=== PATIENT | male | born 1955 | race African-American/Black ===

== ENCOUNTER → 2017-09-25 | Outpatient (CLI) | payer BC ==
[~2017-09-25] MED LIST: CATHETER FLUSH 10 ML SYR IV PRN; REGADENOSON 0.4 MG/5 ML SYR (LEXISCAN) IV ONE
[2017-09-25 09:15] VITALS: BP 160/95
[2017-09-25 09:19] VITALS: BP 137/75
[2017-09-25 09:22] VITALS: BP 164/79
== END ==
LOC: CARD 07:50
PROVIDERS: ATTEND Internal Medicine Cardiovascular Disease
DX: I48.0 Paroxysmal atrial fibrillation (principal); I49.5 Sick sinus syndrome; I70.213 Atherosclerosis of native arteries of extremities with intermittent claudication, bilateral legs
CPT/HCPCS: 78452; 93017

== ENCOUNTER → 2017-10-12 | Outpatient (CLI) | payer BC | LOC: CARD 10:17 → EDUNIT# 11:30 | PROVIDERS: ATTEND Internal Medicine Cardiovascular Disease | DX: I48.0 Paroxysmal atrial fibrillation (principal); I49.5 Sick sinus syndrome; I70.213 Atherosclerosis of native arteries of extremities with intermittent claudication, bilateral legs | CPT/HCPCS: 93306 ==

== ENCOUNTER 2017-11-06 06:53 | Day surgery (SDC) | payer BC ==
[~2017-11-06] VITALS: Ht 190.5 cm; Wt 105.2 kg
[2017-11-06] VITALS (10 sets, daily range): BP systolic 145–173; BP diastolic 69–94
[2017-11-06] MEDS ORDERED: NS IV 1000 ML 1,000 ML ONE (06:57)
[2017-11-06] MEDS ORDERED: HEParin (CATH LAB) 2,000 ML IV ONE (06:57)
[2017-11-06] MEDS ORDERED: LIDOCAINE 1% INJ 50 ML (XYLOCAINE) VIAL ONE (06:57)
[2017-11-06 07:19] LABS: HEMOGLOBIN 13.5 G/DL (13.3-17.7); MEAN PLATELET VOLUME 10.1 FL (7.4-10.4); RED BLOOD COUNT 4.77 10^6/uL (4.35-5.85); RED CELL DISTRIBUTION WIDTH 14.5 % (10.0-14.5); WHITE BLOOD COUNT 6.9 10^3/uL (4.3-11.0)
[2017-11-06] MEDS ORDERED: CARV6.252 PO (07:26)
[2017-11-06] MEDS ORDERED: APIX5TAB PO (07:26)
[2017-11-06] MEDS ORDERED: CLOP75TA69 PO (07:26)
[2017-11-06] MEDS ORDERED: LEVO175T5 PO (07:26)
[2017-11-06 07:29] LABS: PROTHROMBIN TIME PATIENT 13.2 SEC (12.2-14.7)
[2017-11-06] MEDS ORDERED: NS IV 1000 ML 1,000 ML IV SCH ×2 (07:30→08:48)
[2017-11-06 07:40] LABS: ALANINE AMINOTRANSFERASE 17 U/L (0-55); ALKALINE PHOSPHATASE 57 U/L (40-136); BILIRUBIN,TOTAL 0.3 MG/DL (0.1-1.0); BUN/CREATININE RATIO 20; CALCIUM 9.3 MG/DL (8.5-10.1); CARBON DIOXIDE 23 MMOL/L (21-32); CHLORIDE 108 MMOL/L (98-107); CHOLESTEROL 189 MG/DL (< 200); CREATININE SERUM 1.25 MG/DL (0.60-1.30); GFR ESTIMATED > 60; GLUCOSE 111 MG/DL (70-105); HDL CHOLESTEROL 56 MG/DL (40-60); POTASSIUM 4.6 MMOL/L (3.6-5.0); SODIUM 142 MMOL/L (135-145); TOTAL PROTEIN 7.1 GM/DL (6.4-8.2); TRIGLYCERIDES 66 MG/DL (<150); VLDL CHOLESTEROL 13 MG/DL (5-40)
[2017-11-06] MEDS ORDERED: diphenhydrAMINE 50 MG/ML INJ (BENADRYL) ONE (07:45)
[2017-11-06] MEDS ORDERED: MIDAZOLAM 5 MG/5 ML (VERSED) VIAL ONE (07:45)
[2017-11-06] MEDS ORDERED: fentaNYL INJECTION 100 MCG/2 ML AMP ONE (07:45)
--- NOTE | 2017-11-06 08:48 | Cardiac Procedure Note-CS/ASA ---
Pre-Procedure Note Pre-Op Procedure Note H&P Reviewed The H&P was reviewed, patient examined and no changes noted. Date H&P Reviewed: Nov 06, 2017 Time H&P Reviewed: 08:20 Conscious Sedation Pre-Proced Time Reviewed: 08:20 ASA Class: 2 Airway Mallampati Classification: ([place] appropriate class) I. II. III, IV Lungs Heart ASA score ASA 1: a normal healthy patient ASA 2: a patient with a mild systemic disease (mid diabetes, controlled hypertension, obesity ASA 3: a patient with a severe systemic disease that limits activity (angina , COPD, prior Myocardial infarction) ASA 4: a patient with an incapacitating disease that is a constant threat to life (CHF, renal failure) ASA 5: a moribund patient not expected to survive 24 hrs. (ruptured aneurysm) ASA 6: a declared brain patient whose organs are being harvested. For emergent operations, add the letter E after the classification Grade 2 Sedation Plan: Analgesia, Amnesia, Plan communicated to team members, Discussed options with patient/fam, Discussed risks with patient/fam Note The patient is an appropriate candidate to undergo the planned procedure, sedation, and anesthesia. The patient immediately re-assessed prior to indication. YULIYA CAMACHO MD FACP FACC CCDS Nov 06, 2017 08:48
[2017-11-06] MEDS ORDERED: ATOR20TA66 PO (08:52)
--- NOTE | 2017-11-06 08:53 | Discharge Inst-Post CATH ---
Discharge Inst-CATH Post Cardiac Cath D/C Inst Follow Up/Plan F/u with Dr Brooks next week CARDIAC CATH DISCHARGE INSTRUCTIONS *Hold Metformin for 48 hours post heart cath. ACTIVITY * Go Home directly and rest. * Limit activity of the leg (or wrist if it was used) for 7 days including aerobics, swimming, jogging, bicycling, etc. * Restrict stair-climbing for 7 days if possible, if not, climb up with your non -cath leg, then bring together on the same step. * Avoid lifting, pushing, pulling or excessive movement of the affected extremity for 7 days. * Customary sexual activity may be resumed after 2 days-use caution not to use a position that strains or causes pain to the affected extremity. * No driving for 24 hours. * NO SMOKING. * Avoid straining for bowel movements for 7 days. * Gentle walking on level ground is allowed. * Returning to work will depend on the type of procedure and the results. Your doctor will discuss this with you. CALL YOUR DOCTOR FOR ANY OF THE FOLLOWING: *If bleeding from the puncture site occurs- Apply gentle pressure to site with clean cloth and call your doctor or EMS. * If a knot or lump forms under the skin, increases in size, or causes pain. * If bruising appears to be worsening or moving further down your leg instead of disappearing. * Temperature above 101 F. CARE OF YOUR GROIN INCISION; * Bruising or purple discoloration of the skin near the puncture site is common. * You may shower only, no bathtub bathing for 5 days. Be careful to avoid slipping as your leg may feel stiff. * If a closure device was used on your femoral artery, please see the attached guide regarding care of the device and your leg. * REMOVE the dressing from your groin the next day after your procedure in the shower. CARE OF YOUR WRIST INCISION; * Bruising or purple discoloration of the skin near the puncture site is common. * You may shower. * DO NOT submerge wrist. * Remove dressing in 24 hours. YULIYA BROOKS MD FACP FAC CCDS Nov 06, 2017 08:53
--- NOTE | 2017-11-06 08:54 | Discharge Inst-Cardiology ---
Discharge Inst-Cardiac Discharge Medications New Medications: Atorvastatin Calcium (Atorvastatin Calcium) 20 Mg Tablet 20 MG PO DAILY, #30 TAB 5 Refills Continued Medications: Apixaban (Eliquis) 5 Mg Tablet 5 MG PO BID, TAB Carvedilol (Carvedilol) 6.25 Mg Tablet 6.25 MG PO BID, TAB Clopidogrel Bisulfate (Plavix) 75 Mg Tablet 75 MG PO DAILY, TAB Levothyroxine Sodium (Levothyroxine Sodium) 175 Mcg Tablet 175 MCG PO DAILY, TAB Orders-Post D/C & Referrals Pneu Vac Indicated: Yes YULIYA CAMACHO MD FACP FACC CCDS Nov 06, 2017 08:53
[2017-11-06] MEDS ORDERED: PATIENT MAY USE OWN MEDS, ALL PO SCH (09:00)
--- NOTE | 2017-11-06 11:32 | CARDIAC CATHETERIZATION ---
DATE OF SERVICE: 11/06/2017 HISTORY OF PRESENT ILLNESS: The patient is a 62-year-old man who has known peripheral arterial disease and multiple coronary artery disease risk factors and had a recent myocardial perfusion imaging study, which was indicative of ischemia. Cardiac catheterization was carried out today after having obtained an informed consent. PROCEDURE DESCRIPTION: He was brought to the cardiac catheterization laboratory in a fasting state. Right groin was prepared and draped in the usual sterile fashion. Lidocaine 1% was used for local anesthesia. Modified Seldinger technique was used to advance a 5-Dominican sheath into the right femoral artery. A 5-Dominican JL4 catheter for left coronary angiography, 5-Dominican JR4 catheter was used for right coronary angiography. A 5-Dominican pigtail catheter used for left heart catheterization and left ventricular angiography. We noted calcification in the aortic arch and in the neck artery area. Therefore, we carried out aortic arch angiography. The pigtail was placed at the aortic arch and aortic arch angiography was performed. Pigtail was removed. Angiography of the right femoral artery had been carried out through the sheath at the beginning of the procedure. At the end of the procedure, Mynx was used to achieve hemostasis. He tolerated the procedure well. HEMODYNAMICS: Left ventricular end-diastolic pressure following coronary angiography was 6 mmHg. There was no significant pressure gradient on pullback across the aortic valve. Ascending aortic pressure is 123/60 with a mean of 84 mmHg. LEFT VENTRICULAR ANGIOGRAPHY: Left ventricular angiography was carried out in right anterior oblique projection. Global left ventricular systolic function is normal. No regional wall motion abnormalities are seen. Left ventricular ejection fraction is estimated to be 55% to 60%. There does not appear to be significant mitral regurgitation. AORTIC ARCH ANGIOGRAPHY: Aortic arch angiography was performed because calcification was noted on fluoroscopy in the aortic arch and the neck arteries. Aortic arch angiography did not indicate any significant thoracic aortic aneurysm or dissection. Only a single common brachiocephalic function is identified, which seems to branch into right and left brachiocephalic trunks. Mild calcification is seen of the aortic arch and of the proximal portion of the brachiocephalic trunk. No stenoses identified to the extent seen. CORONARY ANGIOGRAPHY: Mild coronary calcification is present. Left main coronary artery does not exhibit significant disease. Left anterior descending artery has mild diffuse plaques. Left circumflex artery has mild diffuse plaques. Right coronary artery is dominant and has approximately 40% stenosis in its mid portion. CONCLUSIONS: 1. Angiographically mild coronary artery disease. 2. Normal global left ventricular systolic function with an ejection fraction of 55% to 60%. 3. Normal left ventricular end-diastolic pressure. 4. Mild calcification of the aortic arch. 5. No significant mitral regurgitation. DISCUSSION AND RECOMMENDATIONS: Based on results of the study, it appears appropriate to continue a conservative approach. Risk factor modification was reviewed. Statin has been added to the regimen. Outpatient followup is advised. Job ID: [id number] DocumentID: [id number] Dictated Date: 11/06/2017 09:05:16 Electrical Automation Engineer Date: 11/06/2017 11:31:13 Dictated By: YULIYA CAMACHO MD, MA, FACP, FACC, MTDD
== END 2017-11-06 11:56 | disposition home or self-care (01) ==
LOC: CATH 06:53 → SURG 09:02 → CATH 11:56
PROVIDERS: ATTEND Internal Medicine Cardiovascular Disease
DX: I25.10 Atherosclerotic heart disease of native coronary artery without angina pectoris (principal); I48.0 Paroxysmal atrial fibrillation; I49.5 Sick sinus syndrome; I73.9 Peripheral vascular disease, unspecified; Z82.49 Family history of ischemic heart disease and other diseases of the circulatory system; Z79.01 Long term (current) use of anticoagulants; Z79.02 Long term (current) use of antithrombotics/antiplatelets; Z79.899 Other long term (current) drug therapy; Z87.891 Personal history of nicotine dependence
CPT/HCPCS: 36221; 36415; 80053; 80061; 85027; 85610; 85730; 87081; 93005; 93458

== ENCOUNTER → 2018-05-09 | Outpatient (CLI) | payer BC ==
[~2018-05-09] MED LIST changes: +APIX5TAB PO; +ATOR20TA66 PO; +CARV6.252 PO; -CATHETER FLUSH 10 ML SYR IV PRN; +CLOP75TA69 PO; +IOHEXOL 350 MG/ML 100 ML (OMNIPAQUE 350) VIAL IV ONE; +LEVO175T5 PO; +NS 250 ML (IVPB) BAG IV ONE; -REGADENOSON 0.4 MG/5 ML SYR (LEXISCAN) IV ONE
[2018-05-09 09:12] LABS: ALANINE AMINOTRANSFERASE 21 U/L (0-55); ALBUMIN 4.1 GM/DL (3.2-4.5); ALKALINE PHOSPHATASE 63 U/L (40-136); BILIRUBIN,TOTAL 0.4 MG/DL (0.1-1.0); BUN/CREATININE RATIO 21; CALCIUM 9.7 MG/DL (8.5-10.1); CARBON DIOXIDE 27 MMOL/L (21-32); CHLORIDE 111 MMOL/L (98-107); CHOLESTEROL 135 MG/DL (< 200); CREATININE SERUM 1.04 MG/DL (0.60-1.30); GFR ESTIMATED > 60; GLUCOSE 116 MG/DL (70-105); HDL CHOLESTEROL 49 MG/DL (40-60); POTASSIUM 4.9 MMOL/L (3.6-5.0); SODIUM 143 MMOL/L (135-145); TOTAL PROTEIN 7.2 GM/DL (6.4-8.2); TRIGLYCERIDES 61 MG/DL (<150); VLDL CHOLESTEROL 12 MG/DL (5-40)
--- NOTE | 2018-05-09 13:25 | Diagnostic Imaging Report ---
INDICATION: Atherosclerotic disease. Post IV contrast-enhanced CT angio neck performed. FINDINGS: There is very poor intraluminal arterial opacification of the bilateral internal carotids through the level of the skull base with vast majority of the contrast being in the systemic venous system within the prominent widely patent jugulars. There is also very poor intraluminal opacification of the vertebral arteries. The aortic arch is widely patent. The left common carotid arises off the brachiocephalic as anatomical variant. The bilateral subclavians appeared unremarkable. The takeoff of both vertebral arteries was patent. The left the dominant vessel, the right somewhat small but appearing nonfocal where it was adequately opacified. From the level of the C2-C3 disc space and up, the vertebrals are poorly opacified and not well characterized. The bilateral common carotid arteries are widely patent. There is at least calcified plaque at the carotid bulbs and bifurcations extending into the proximal ICAs. This study would not be adequate to exclude a hemodynamically significant degree of stenosis at the proximal ICAs of the disease more pronounced left than right. Intracranially, there is at least some intraluminal opacification at the cavernous segments of the carotids, the A1 segments and the proximal middle cerebral arterial segments. There is some opacification of the intracranial basilar and at least proximal interlocker maintainer. There is enhancement of the major dural venous sinuses with asymmetric right lateral ventriculomegaly of uncertain etiology. 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 Old deformity to the medial right orbital wall. IMPRESSION: Technically limited with poor arterial opacification of the mid to upper neck through the [place]. Left greater than right proximal carotid plaque, a hemodynamically significant degree of stenosis could not be excluded. No obvious vertebral disease; however, there are also poorly opacified at the distal third of the cervical segments. Mild colpocephalic distention of the posterior body, atria and occipital horn of the right lateral ventricle likely chronic. If not already performed, carotid Doppler recommended as the severity of disease appeared most pronounced near the bifurcations which should be in the [id number] at Doppler evaluation. Dictated by: Dictated on workstation # [id number]
== END ==
LOC: RAD 08:16
PROVIDERS: ATTEND Nurse Practitioner Family
DX: I65.23 Occlusion and stenosis of bilateral carotid arteries (principal); I25.10 Atherosclerotic heart disease of native coronary artery without angina pectoris; I70.213 Atherosclerosis of native arteries of extremities with intermittent claudication, bilateral legs; I48.0 Paroxysmal atrial fibrillation; I49.5 Sick sinus syndrome
CPT/HCPCS: 36415; 70498; 80053; 80061

== ENCOUNTER → 2019-11-20 | Outpatient (CLI) | payer MEDICARE ==
[~2019-11-20] MED LIST changes: -IOHEXOL 350 MG/ML 100 ML (OMNIPAQUE 350) VIAL IV ONE; -NS 250 ML (IVPB) BAG IV ONE
== END ==
LOC: CARD 08:47
PROVIDERS: ATTEND Internal Medicine Cardiovascular Disease
DX: I48.0 Paroxysmal atrial fibrillation (principal); I49.5 Sick sinus syndrome; I51.7 Cardiomegaly; I70.213 Atherosclerosis of native arteries of extremities with intermittent claudication, bilateral legs
CPT/HCPCS: 93306

== ENCOUNTER → 2019-12-02 | Outpatient (CLI) | payer MEDICARE ==
[~2019-12-02] VITALS: Ht 187 cm; Wt 116.0 kg
[~2019-12-02] MED LIST changes: +CATHETER FLUSH 10 ML SYR IV PRN; +REGADENOSON 0.4 MG/5 ML SYR (LEXISCAN) IV ONE
[2019-12-02 08:52] VITALS: BP 174/74
[2019-12-02 09:05] VITALS: BP 161/85
--- NOTE | 2019-12-05 15:28 | STRESS TEST ---
DATE OF SERVICE: 12/02/2019 ORDERING PHYSICIAN: Dr. Brooks. PRIMARY PHYSICIAN: Dr. Martinez. CLINICAL DIAGNOSES: Shortness of breath, paroxysmal atrial fibrillation. Baseline images were carried out after injection of 10.58 mCi of technetium-99m Tetrofosmin. This was followed by 0.4 mg regadenoson and 31 mCi of technetium-99m Tetrofosmin for stress imaging. The electrocardiogram showed sinus rhythm at baseline. It did not change significantly with regadenoson infusion. Isolated premature ventricular contractions were seen in the recovery phase. The patient did not report any symptoms. Review of images at rest and following stress indicates a small inferolateral transient perfusion defect. Gated images show normal regional wall motion. Left ventricular ejection fraction is calculated to be 53%. TID is absent (0.95). CONCLUSIONS: 1. The study is indicative of a small amount of inferolateral ischemia. 2. Normal regional wall motion. 3. Normal global left ventricular systolic function with a calculated ejection fraction of 53%. Job ID: [id number] DocumentID: [id number] Dictated Date: 12/05/2019 10:57:13 Advertising Inserter Date: 12/05/2019 14:18:35 Dictated By: YULIYA BROOKS MD, MA, FACP, FACC,
== END ==
LOC: CARD 07:06
PROVIDERS: ATTEND Internal Medicine Cardiovascular Disease
DX: I48.0 Paroxysmal atrial fibrillation (principal); I70.213 Atherosclerosis of native arteries of extremities with intermittent claudication, bilateral legs; I49.5 Sick sinus syndrome
CPT/HCPCS: 78452; 93017

== ENCOUNTER 2020-01-01 19:18 | Outpatient (CLI) | payer MEDICARE ==
[~2020-01-01 19:18] MED LIST changes: -CATHETER FLUSH 10 ML SYR IV PRN; -REGADENOSON 0.4 MG/5 ML SYR (LEXISCAN) IV ONE
== END 2020-01-02 06:00 | disposition home or self-care (01) ==
LOC: SLEEP 19:18
PROVIDERS: ATTEND Otolaryngology Otolaryngology/Facial Plastic Surgery
DX: G47.33 Obstructive sleep apnea (adult) (pediatric) (principal); G47.31 Primary central sleep apnea
CPT/HCPCS: 95811

== ENCOUNTER 2020-03-16 07:10 | Day surgery (SDC) | payer MEDICARE ==
[~2020-03-16 07:10] MED LIST changes: +HEParin (CATH LAB) 0 ML IV ONE; +LIDOCAINE 1% INJ 20 ML 20 ML VIAL ONE
[2020-03-16] MEDS ORDERED: NS IV 1000 ML 1,000 ML ONE (07:11)
[2020-03-16] MEDS ORDERED: NS IV 1000 ML 1,000 ML IV SCH (07:15)
--- OUTSIDE RECORDS SUMMARY | 2020-03-16 07:15 | XMS REPORT | Continuity of Care Document ---
Author Organization Unknown Address Unknown Phone Unavailable Allergies Active Description Code Type Severity Reaction Onset Reported/Identified Relationship to Patient Clinical Status Yes No Allergy Information Available [id number] Drug Allergy Unknown N/A 017 Yes No Known Drug Allergies [id number] Drug Allergy Unknown N/A 11/06/2017 Medications There is no data. 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 10/26/2017 JANICE CARBONE FACC, ALI FACP CCDS Ot I48.0 PAROXYSMAL ATRIAL FIBRILLATION 10/26/2017 JANCIE CARBONE FACC, ALI FACP CCDS Ot I49.5 SICK SINUS SYNDROME 10/26/2017 JANICE CARBONE FACC, ALI FACP CCDS Ot 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 11/06/2017 JANICE CARBONE FACC, YULIYA FACP CCDS Ot I25.10 ATHSCL HEART DISEASE OF [place] CORONARY 11/06/2017 JANICE CARBONE FACC, ALI FACP CCDS Ot I48.0 PAROXYSMAL ATRIAL FIBRILLATION 11/06/2017 JANICE CARBONE FACC, ALI FACP CCDS Ot I49.5 SICK SINUS SYNDROME 11/06/2017 JANICE CARBONE FACC, ALI FACP CCDS Ot I73.9 PERIPHERAL VASCULAR DISEASE, UNSPECIFIED 11/06/2017 JANICE BEDOYAC, ALI FACP CCDS Ot Z79.01 AUDIT TECH (CURRENT) USE OF ANTICOAGULANT 11/06/2017 JANICE CARBONE FACC, ALI FACP CCDS Ot Z79.02 AUDIT TECH (CURRENT) USE OF ANTITHROMBOTI 11/06/2017 JANICE CARBONE FACC, ALI FACP CCDS Ot Z79.899 OTHER CARE HOME (CURRENT) DRUG THERAPY 11/06/2017 JANICE BEDOYAC, ALI FACP CCDS Ot Z82.49 FAMILY HX OF ISCHEM HEART DIS AND OTH DI 11/06/2017 JANICE CARBONE FACC, ALI FACP CCDS Ot Z87.891 PERSONAL HISTORY OF NICOTINE DEPENDENCE 11/09/2017 JANICE BEDOYAC, ALI FACP CCDS Ot I25.10 ATHSCL HEART DISEASE OF [place] CORONARY 11/09/2017 JANICE BEDOYAC, ALI FACP CCDS Ot I48.0 PAROXYSMAL ATRIAL FIBRILLATION 11/09/2017 JANICE BEDOYAC, ALI FACP CCDS Ot I49.5 SICK SINUS SYNDROME 11/09/2017 JANICE CARBONE FACC, ALI FACP CCDS Ot I73.9 PERIPHERAL VASCULAR DISEASE, UNSPECIFIED 11/09/2017 JANICE CARBONE FACC, ALI FACP CCDS Ot Z79.01 CARE HOME (CURRENT) USE OF ANTICOAGULANT 11/09/2017 JANICE CARBONE FACC, ALI FACP CCDS Ot Z79.02 CARE HOME (CURRENT) USE OF ANTITHROMBOTI 11/09/2017 JANICE BEDOYAC, ALI FACP CCDS Ot Z79.899 OTHER AUDIT TECH (CURRENT) DRUG THERAPY 11/09/2017 JANICE CARBONE FACC, ALI FACP CCDS Ot Z82.49 FAMILY HX OF ISCHEM HEART DIS AND OTH DI 11/09/2017 JANICE CARBONE FACC, ALI FACP CCDS Ot Z87.891 PERSONAL HISTORY OF NICOTINE DEPENDENCE 05/07/2018 JANICE CARBONE FACC, ALI FACP CCDS Ot I48.0 PAROXYSMAL ATRIAL FIBRILLATION 05/07/2018 JANICE CARBONE FACC, ALI FACP CCDS Ot I49.5 SICK SINUS SYNDROME 05/07/2018 JANICE CARBONE FACC, ALI FACP CCDS Ot 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 11/13/2019 JANICE CARBONE FACC, ALI FACP CCDS Ot I48.0 PAROXYSMAL ATRIAL FIBRILLATION 11/13/2019 JANICE CARBONE FACC, ALI FACP CCDS Ot I49.5 SICK SINUS SYNDROME 11/13/2019 JANICE CARBONE FACC, ALI FACP CCDS Ot 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 OF [facility] 11/13/2019 BAIMA, LAYLA L TRANSMISSION INSPECTOR Ot I25.10 ATHSCL HEART DISEASE OF [place] CORONARY 11/13/2019 BAIMA, LAYLA L TRANSMISSION INSPECTOR Ot I48.0 PAROXYSMAL ATRIAL FIBRILLATION 11/13/2019 BAIMA, LAYLA L TRANSMISSION INSPECTOR Ot I49.5 SICK SINUS SYNDROME 11/13/2019 BAIMA, LAYLA L TRANSMISSION INSPECTOR Ot I65.23 OCCLUSION AND STENOSIS OF BILATERAL [place] 11/13/2019 BAIMA, LAYLA L TRANSMISSION INSPECTOR Ot 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 OF [facility] 11/20/2019 JANICE CARBONE FACC, ALI FACP CCDS Ot I48.0 PAROXYSMAL ATRIAL FIBRILLATION 11/20/2019 JANICE CARBONE FACC, ALI FACP CCDS Ot I49.5 SICK SINUS SYNDROME 11/20/2019 JANICE CARBONE FAC, ALI FACP CCDS Ot 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 OF [facility] 11/20/2019 BAIMA, LAYLA L TRANSMISSION INSPECTOR Ot I25.10 ATHSCL HEART DISEASE OF [place] CORONARY 11/20/2019 BAIMA, LAYLA L TRANSMISSION INSPECTOR Ot I48.0 PAROXYSMAL ATRIAL FIBRILLATION 11/20/2019 BAIMA, LAYLA L TRANSMISSION INSPECTOR Ot I49.5 SICK SINUS SYNDROME 11/20/2019 BAIMA, LAYLA L TRANSMISSION INSPECTOR Ot I65.23 OCCLUSION AND STENOSIS OF BILATERAL [place] 11/20/2019 BAIMA, LAYLA L TRANSMISSION INSPECTOR Ot 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 12/[facility]/2019 JANICE CARBONE FACC, ALI FACP CCDS Ot I48.0 PAROXYSMAL ATRIAL FIBRILLATION 12/02/2019 JANICE CARBONE FACC, ALI FACP CCDS Ot I49.5 SICK SINUS SYNDROME 12/02/2019 JANICE CARBONE FACC, ALI FACP CCDS Ot 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 [facility] 12/02/2019 BAIMA, LAYLA L TRANSMISSION INSPECTOR Ot I25.10 ATHSCL HEART DISEASE OF [place] CORONARY 12/02/2019 BAIMA, LAYLA L TRANSMISSION INSPECTOR Ot I48.0 PAROXYSMAL ATRIAL FIBRILLATION 12/02/2019 BAIMA, LAYLA L TRANSMISSION INSPECTOR Ot I49.5 SICK SINUS SYNDROME 12/02/2019 BAIMA, LAYLA L TRANSMISSION INSPECTOR Ot I65.23 OCCLUSION AND STENOSIS OF [place]ILATERAL [place] 12/02/2019 BAIMA, LAYLA L TRANSMISSION INSPECTOR Ot 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 OF EXTR [facility] 12/02/2019 JANICE CARBONE FACC, ALI FACP CCDS Ot I48.0 PAROXYSMAL ATRIAL FIBRILLATION 12/02/2019 JANICE CARBONE FACC, ALI FACP CCDS Ot I49.5 SICK SINUS SYNDROME 12/02/2019 JANICE CARBONE FACC, ALI FACP CCDS Ot I51.7 CARDIOMEGALY 12/02/2019 JANICE CARBONE FACC, ALI FACP CCDS Ot 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 OF EXTR [facility] 12/07/2019 JANICE CARBONE FACC, ALI FACP CCDS Ot I48.0 PAROXYSMAL ATRIAL FIBRILLATION 12/07/2019 JANICE CARBONE FACC, ALI FACP CCDS Ot I49.5 SICK SINUS SYNDROME 12/07/2019 JANICE CARBONE FACC, ALI FACP CCDS Ot 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 OF EXTR [facility] 12/09/2019 JANICE CARBONE FACC, ALI FACP CCDS Ot I48.0 PAROXYSMAL ATRIAL FIBRILLATION 12/09/2019 JANICE CARBONE FACC, ALI FACP CCDS Ot I49.5 SICK SINUS SYNDROME 12/09/2019 JANICE CARBONE FACC, ALI FACP CCDS Ot 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 OF EXTR [facility] 12/16/2019 JANICE CARBONE FACC, ALI FACP CCDS Ot I48.0 PAROXYSMAL ATRIAL FIBRILLATION 12/16/2019 JANICE BEDOYA, ALI FACP CCDS Ot I49.5 SICK SINUS SYNDROME 12/16/2019 JANICE CARBONE FACC, ALI FACP CCDS Ot I51.7 CARDIOMEGALY 12/16/2019 JANICE CARBONE [facility], ALI FACP CCDS Ot 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 12/26/2019 JANICE CARBONE [facility], ALI FACP CCDS Ot I48.0 PAROXYSMAL ATRIAL FIBRILLATION 12/26/2019 JANICE CARBONE [facility], ALI FACP CCDS Ot I49.5 SICK SINUS SYNDROME 12/26/2019 JANICE CARBONE [facility], ALI FACP CCDS Ot 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 12/26/2019 BAIMA, LAYLA L TRANSMISSION INSPECTOR Ot I25.10 ATHSCL HEART DISEASE OF [place] CORONARY 12/26/2019 BAIMA, LAYLA L TRANSMISSION INSPECTOR Ot I48.0 PAROXYSMAL ATRIAL FIBRILLATION 12/26/2019 BAIMA, LAYLA L TRANSMISSION INSPECTOR Ot I49.5 SICK SINUS SYNDROME 12/26/2019 BAIMA, LAYLA L TRANSMISSION INSPECTOR Ot I65.23 OCCLUSION AND STENOSIS OF BILATERAL [place] 12/26/2019 BAIMA, LAYLA L TRANSMISSION INSPECTOR Ot 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 12/26/2019 JANICE BEDOYA, ALI FACP CCDS Ot I48.0 PAROXYSMAL ATRIAL FIBRILLATION 12/26/2019 JANICE CARBONE [facility], ALI FACP CCDS Ot I49.5 SICK SINUS SYNDROME 12/26/2019 JANICE CARBONE [facility], ALI FACP CCDS Ot 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 12/26/2019 JANICE CARBONE [facility], ALI FACP CCDS Ot I48.0 PAROXYSMAL ATRIAL FIBRILLATION 12/26/2019 JANICE CARBONE [facility], ALI FACP CCDS Ot I49.5 SICK SINUS SYNDROME 12/26/2019 JANICE CARBONE [facility], ALI FACP CCDS Ot I51.7 CARDIOMEGALY 12/26/2019 JANICE CARBONE [facility], ALI FACP CCDS Ot 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 12/26/2019 DALLIN CARBONE, PJ Corley Ot G47.33 OBSTRUCTIVE SLEEP APNEA (ADULT) (PEDIATR 12/31/2019 JANICE CARBONE FACC, ALI FACP CCDS Ot I48.0 PAROXYSMAL ATRIAL FIBRILLATION 12/31/2019 JANICE CARBONE FACC, ALI FACP CCDS Ot I49.5 SICK SINUS SYNDROME 12/31/2019 JANIEC CARBONE FACC, ALI FACP CCDS Ot 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 OF [facility] 12/31/2019 BAIMA, LAYLA L TRANSMISSION INSPECTOR Ot I25.10 ATHSCL HEART DISEASE OF [place] CORONARY 12/31/2019 BAIMA, LAYLA L TRANSMISSION INSPECTOR Ot I48.0 PAROXYSMAL ATRIAL FIBRILLATION 12/31/2019 BAIMA, LAYLA L TRANSMISSION INSPECTOR Ot I49.5 SICK SINUS SYNDROME 12/31/2019 BAIMA, LAYLA L TRANSMISSION INSPECTOR Ot I65.23 OCCLUSION AND STENOSIS OF BILATERAL [place] 12/31/2019 BAIMA, LAYLA L TRANSMISSION INSPECTOR Ot 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 OF [facility] 12/31/2019 JANICE CARBONE FACC, ALI FACP CCDS Ot I48.0 PAROXYSMAL ATRIAL FIBRILLATION 12/31/2019 JANICE CARBONE FACC, ALI FACP CCDS Ot I49.5 SICK SINUS SYNDROME 12/31/2019 JANICE CARBONE FACC, ALI FACP CCDS Ot 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 OF [facility] 12/31/2019 JANICE CARBONE FACC, ALI FACP CCDS Ot I48.0 PAROXYSMAL ATRIAL FIBRILLATION 12/31/2019 JANICE CARBONE FACC, ALI FACP CCDS Ot I49.5 SICK SINUS SYNDROME 12/31/2019 JANICE CARBONE FACC, ALI FACP CCDS Ot I51.7 CARDIOMEGALY 12/31/2019 JANICE CARBONE FACC, ALI FACP CCDS Ot 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 OF [facility] 12/31/2019 DALLIN CARBONE, PJ Corley Ot G47.33 OBSTRUCTIVE SLEEP APNEA (ADULT) (PEDIATR 12/31/2019 JANICE CARBONE FACC, ALI FACP CCDS Ot I48.0 PAROXYSMAL ATRIAL FIBRILLATION 12/31/2019 JANICE BEDOYAC, ALI FACP CCDS Ot I49.5 SICK SINUS SYNDROME 12/31/2019 JANICE CARBONE FACC, ALI FACP CCDS Ot 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 01/01/2020 JANICE CARBONE FACC, ALI FACP CCDS Ot I48.0 PAROXYSMAL ATRIAL FIBRILLATION 01/01/2020 JANICE CARBONE FACC, ALI FACP CCDS Ot I49.5 SICK SINUS SYNDROME 01/01/2020 JANICE CARBONE FACC, ALI FACP CCDS Ot 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 01/01/2020 BAIMA, LAYLA L TRANSMISSION INSPECTOR Ot I25.10 ATHSCL HEART DISEASE OF [place] CORONARY 01/01/2020 BAIMA, LAYLA L TRANSMISSION INSPECTOR Ot I48.0 PAROXYSMAL ATRIAL FIBRILLATION 01/01/2020 BAIMA, LAYLA L TRANSMISSION INSPECTOR Ot I49.5 SICK SINUS SYNDROME 01/01/2020 BAIMA, LAYLA L TRANSMISSION INSPECTOR Ot I65.23 OCCLUSION AND STENOSIS OF BILATERAL [place] 01/01/2020 BAIMA, LAYLA L TRANSMISSION INSPECTOR Ot 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 W INTRAR 01/01/2020 JANICE CARBONE FACC, ALI FACP CCDS Ot I48.0 PAROXYSMAL ATRIAL FIBRILLATION 01/01/2020 JANICE CARBONE FACC, ALI FACP CCDS Ot I49.5 SICK SINUS SYNDROME 01/01/2020 JANICE CARBONE FACC, ALI FACP CCDS Ot 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 01/01/2020 JANICE CARBONE FACC, ALI FACP CCDS Ot I48.0 PAROXYSMAL ATRIAL FIBRILLATION 01/01/2020 JANICE CARBONE FACC, ALI FACP CCDS Ot I49.5 SICK SINUS SYNDROME 01/01/2020 JANICE CARBONE FACC, ALI FACP CCDS Ot I51.7 CARDIOMEGALY 01/01/2020 JANICE CARBONE FACC, ALI FACP CCDS Ot 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 OF EXTR [facility] 01/01/2020 DALLIN CARBONE, PJ Corley Ot G47.33 OBSTRUCTIVE SLEEP APNEA (ADULT) (PEDIATR 01/01/2020 JANICE CARBONE FACC, ALI FACP CCDS Ot I48.0 PAROXYSMAL ATRIAL FIBRILLATION 01/01/2020 JANICE BEDOYAC, ALI FACP CCDS Ot I49.5 SICK SINUS SYNDROME 01/01/2020 JANICE CARBONE FACC, ALI FACP CCDS Ot 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 01/01/2020 BAIMA, LAYLA L TRANSMISSION INSPECTOR Ot I25.10 ATHSCL HEART DISEASE OF [place] CORONARY 01/01/2020 BAIMA, LAYLA L TRANSMISSION INSPECTOR Ot I48.0 PAROXYSMAL ATRIAL FIBRILLATION 01/01/2020 BAIMA, LAYLA L TRANSMISSION INSPECTOR Ot I49.5 SICK SINUS SYNDROME 01/01/2020 BAIMA, LAYLA L TRANSMISSION INSPECTOR Ot I65.23 OCCLUSION AND STENOSIS OF BILATERAL [place] 01/01/2020 BAIMA, LAYLA L TRANSMISSION INSPECTOR Ot 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 OF [facility] 01/01/2020 JANICE CARBONE FAC, ALI FACP CCDS Ot I48.0 PAROXYSMAL ATRIAL FIBRILLATION 01/01/2020 JANICE CARBONE [facility], ALI FACP CCDS Ot I49.5 SICK SINUS SYNDROME 01/01/2020 JANICE CARBONE FACC, ALI FACP CCDS Ot 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 OF [facility] 01/01/2020 JANICE CARBONE [facility], ALI FACP CCDS Ot I48.0 PAROXYSMAL ATRIAL FIBRILLATION 01/01/2020 JANICE CARBONE [facility], ALI FACP CCDS Ot I49.5 SICK SINUS SYNDROME 01/01/2020 JANICE CARBONE [facility], ALI FACP CCDS Ot I51.7 CARDIOMEGALY 01/01/2020 JANICE CARBONE [facility], ALI FACP CCDS Ot 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 OF [facility] 01/01/2020 DALLIN CARBONE, PJ Corley Ot G47.33 OBSTRUCTIVE SLEEP APNEA (ADULT) (PEDIATR 01/01/2020 JANICE CARBONE [facility], ALI FACP CCDS Ot I48.0 PAROXYSMAL ATRIAL FIBRILLATION 01/01/2020 JANICE CARBONE [facility], ALI FACP CCDS Ot I49.5 SICK SINUS SYNDROME 01/01/2020 JANICE CARBONE [facility], ALI FACP CCDS Ot 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 OF [facility] 01/01/2020 BAIMA, LAYLA L TRANSMISSION INSPECTOR Ot I25.10 ATHSCL HEART DISEASE OF [place] CORONARY 01/01/2020 BAIMA, LAYLA L TRANSMISSION INSPECTOR Ot I48.0 PAROXYSMAL ATRIAL FIBRILLATION 01/01/2020 BAIMA, LAYLA L TRANSMISSION INSPECTOR Ot I49.5 SICK SINUS SYNDROME 01/01/2020 BAIMA, LAYLA L TRANSMISSION INSPECTOR Ot I65.23 OCCLUSION AND STENOSIS OF BILATERAL [place] 01/01/2020 BAIMA, LAYLA L TRANSMISSION INSPECTOR Ot 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 OF EXTR [facility] 01/01/2020 JANICE CARBONE [facility], ALI FACP CCDS Ot I48.0 PAROXYSMAL ATRIAL FIBRILLATION 01/01/2020 JANICE MD FACC, ALI FACP CCDS Ot I49.5 SICK SINUS SYNDROME 01/01/2020 JANICE MD FAC, ALI FACP CCDS Ot 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 01/01/2020 JANICE MD FACC, ALI FACP CCDS Ot I48.0 PAROXYSMAL ATRIAL FIBRILLATION 01/01/2020 JANICE MD FACC, ALI FACP CCDS Ot I49.5 SICK SINUS SYNDROME 01/01/2020 JANICE MD [facility], ALI FACP CCDS Ot I51.7 CARDIOMEGALY 01/01/2020 JANICE MD FAC, ALI FACP CCDS Ot 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 01/01/2020 DALLIN CARBONE, PJ P Ot G47.33 OBSTRUCTIVE SLEEP APNEA (ADULT) (PEDIATR 01/02/2020 DALLIN CARBONE, PJ P Ot G47.31 PRIMARY CENTRAL SLEEP APNEA 01/02/2020 DALLIN CARBONE, PJ P Ot G47.33 OBSTRUCTIVE SLEEP APNEA (ADULT) (PEDIATR 01/06/2020 DALLIN CARBONE, PJ P Ot G47.31 PRIMARY CENTRAL SLEEP APNEA 01/06/2020 DALLIN CARBONE, PJ P Ot G47.33 OBSTRUCTIVE SLEEP APNEA (ADULT) (PEDIATR Procedures There is no data. Results Test Result Range Automated blood [facility] panel - 11/06/17 07:12 Blood leukocytes automated count (number/volume) 6.9 10*3/uL 4.3-11.0 Blood erythrocytes automated count (number/volume) 4.77 10*6/uL 4.35-5.85 Venous blood hemoglobin measurement (mass/volume) 13.5 g/dL 13.3-17.7 Blood hematocrit (volume fraction) 39 % 40-54 Automated erythrocyte mean corpuscular volume 82 [ foz_us] 80-99 Automated erythrocyte mean corpuscular h emoglobin (mass per erythrocyte) 28 pg 25-34 Automated erythrocyte mean corpuscular h emoglobin concentration measurement (mass/volume) 34 g/dL 32-36 Automated erythrocyte distribution width ratio 14. 5 % 10.0- 14.5 Automated blood platelet count (count/volume) 206 10*3/uL 130-400 Automated blood platelet mean volume measurement 10.1 [foz_us] 7.4-10.4 PT panel in platelet poor plasma by coag ulation assay - 11/06/17 07:12 Prothrombin time (PT) in platelet poor plasma by coagu lation assay 13.2 s 12.2-14.7 INR in platelet poor plasma or blood by coagulation as say 1.0 0.8-1.4 Activated partial thromboplastin time (a PTT) in platelet poor plasma bycoagulation assay - 11/06/17 07:12 Activated partial thromboplastin time (a PTT) in platelet poor plasma bycoagulation assay 27 s 24-35 Comprehensive metabolic panel - 11/06/17 07:12 Serum or plasma sodium measurement (moles/volume) 142 mmol/L 135-145 Serum or plasma potassium measurement (moles/volume) 4.6 mmol/L 3.6-5.0 Serum or plasma chloride measurement (moles/volume) 108 mmol/L 98-107 Carbon dioxide 23 mmol/L 21-32 Serum or plasma anion gap determination (moles/volume) 11 mmol/L 5-14 Serum or plasma urea nitrogen measurement (mass/volume ) 25 mg/dL 7-18 Serum or plasma creatinine measurement (mass/volume) 1.25 mg/dL 0.60-1.30 Serum or plasma urea nitrogen/creatinine mass ratio 20 NRG Serum or plasma creatinine measurement w ith calculation of estimated glomerular filtration rate > NRG Serum or plasma glucose measurement (mass/volume) 111 mg/dL 70-105 Serum or plasma calcium measurement (mass/volume) 9.3 mg/dL 8.5-10.1 Serum or plasma total bilirubin measurement (mass/volu me) 0.3 mg/dL 0.1-1.0 Serum or plasma alkaline phosphatase praful surement (enzymatic activity/volume) 57 U/L 40-136 Serum or plasma aspartate aminotransfera se measurement (enzymatic activity/volume) 14 U/L 5-34 Serum or plasma alanine aminotransferase measurement (enzymatic activity/volume) 17 U/L 0-55 Serum or plasma protein measurement (mass/volume) 7.1 g/dL 6.4-8.2 Serum or plasma albumin measurement (mass/volume) 4.0 g/dL 3.2-4.5 Lipid 1996 panel - 11/06/17 07:12 Serum or plasma triglyceride measurement (mass/volume) 66 mg/dL <150 Serum or plasma cholesterol measurement (mass/volume) 189 mg/dL < 200 Serum or plasma cholesterol in HDL measurement (mass/v olume) 56 mg/dL 40-60 Cholesterol in LDL [mass/volume] in serum or plasma by direct assay 114 mg/dL 1-129 Serum or plasma cholesterol in VLDL measurement (mass/ volume) 13 mg/dL 5-40 Methicillin resistant Staphylococcus aur eus (MRSA) screening culture - 11/06/17 07:12 Methicillin resistant Staphylococcus aureus (MRSA) scr eening culture NEG NRG Encounters ACCT No. Visit Date/Time Discharge Status Pt. Type Provider Facility Loc./Unit Complaint [id number] 05/01/2019 13:00:00 05/01/2019 23:59: 59 CLS [facility] [id number] 01/01/2020 19:18:00 06:00:00 DIS Outpatient PJ ZAMARRIPA MD Via [facility] SLEEP OBSTRUCTIVE SLEEP APNEA [id number] 12/02/2019 07:06:00 23:59:59 CLS Outpatient JANICE CARBONE FACC, YULIYA HOFFMANN CC DS [facility] CARD SOB,PAF [id number] 11/20/2019 08:47:00 23:59:59 CLS Outpatient JANICE CARBONE FACC, YULIYA BEDOYAP CC DS [facility] CARD SOB,PAF [id number] 05/09/2018 08:16:00 018 23:59:59 CLS Outpatient LAYLA HENNING [facility] RAD PAD,CARTOTID AT ERIAL DISEASE,CAD [id number] 11/06/2017 06:53:00 11:56:00 DIS Outpatient JANICE CARBONE FACC, YULIYA BEDOYAP CC DS [facility] CATH ATRIAL FIBR ILLATION [id number] 10/12/2017 10:17:00 23:59:59 CLS Outpatient JANICE CARBONE FACC, YULIYA BEDOYAP CC DS [facility] CARD I48.0 PAF [id number] 09/25/2017 07:50:00 12/05/2 017 23:59:59 CLS Outpatient JANICE CARBONE FACC, YULIYA HOFFMANN CC DS Via [facility] CARD I48.0 PAF [id number] 03/16/2020 08:00:00 P EN Preadmit JANICE CARBONE FACC, YULIYA HOFFMANN CCDS Via [facility] CATH LEG CLAUDICATION
--- NOTE | 2020-03-16 07:34 | NUR ---
PT BROUGHT UP CONCERNS ABOUT HAVING PROCEDURE DONE TODAY DUE TO SCHEDULED MOVING JOBS THAT HE STATES CAN NOT BE POSTPONED THAT REQUIRE A LOT OF LIFTING. NOTIFIED DR CAMACHO, PROCEDURE TO BE RESCHEDULED WHEN PT CAN TAKE OFF A FEW DAYS AND NOT HAVE TO LIFT.
== END 2020-03-16 07:33 | disposition home or self-care (01) ==
LOC: CATH 07:10
PROVIDERS: ATTEND Internal Medicine Cardiovascular Disease
DX: I48.0 Paroxysmal atrial fibrillation (principal); I73.9 Peripheral vascular disease, unspecified; R53.83 Other fatigue; Z53.8 Procedure and treatment not carried out for other reasons

== ENCOUNTER 2021-08-09 16:01 | Emergency (ER) | payer MEDICARE ==
[~2021-08-09] VITALS: Ht 187 cm; Wt 114.0 kg
[~2021-08-09 16:01] MED LIST changes: -HEParin (CATH LAB) 0 ML IV ONE; -LIDOCAINE 1% INJ 20 ML 20 ML VIAL ONE
--- NOTE | 2021-08-09 16:10 | ED Dyspnea ---
General Stated Complaint: SOB History of Present Illness Date Seen by Provider: Aug 09, 2021 Time Seen by Provider: 16:06 Initial Comments 65-year-old male presents with some shortness of breath. He complains that the shortness of breath been going on for about 2 days his states is been going on for at least a month. Patient denies any chest pain. There is some concerns of maybe some "blood tinged sputum with a cough. Patient has a history of smoking but stopped 5 years ago. He denies any fevers or chills. He is fully vaccinated. Patient reports that the shortness of breath gets worse with any type of activity. Patient had a heart cath in 2018 that showed EF of 50% with an stress test that showed a EF of 50% and 2020 about a year ago. Patient denies any leg swelling or weight gain. Patient does have sleep apnea and uses a CPAP at night. pt with a hx of afib Allergies and Home Medications Allergies Coded Allergies: No Known Drug Allergies (Unverified , 11/06/17) Patient Home Medication List Home Medication List Reviewed: Yes Apixaban (Eliquis) 5 Mg Tablet, 5 MG PO BID, (Reported) Entered as Reported by: DEANA HOLLIS on 11/06/17 07 Atorvastatin Calcium (Atorvastatin Calcium) 20 Mg Tablet, 20 MG PO DAILY Prescribed by: YULIYA CAMACHO on 11/06/17 0852 Carvedilol (Carvedilol) 6.25 Mg Tablet, 6.25 MG PO BID, (Reported) Entered as Reported by: DEANA HOLLIS on 11/06/17725 Clopidogrel Bisulfate (Plavix) 75 Mg Tablet, 75 MG PO DAILY, (Reported) Entered as Reported by: DEANA HOLLIS on 11/06/17725 Levothyroxine Sodium (Levothyroxine Sodium) 175 Mcg Tablet, 175 MCG PO DAILY, (Reported) Entered as Reported by: DEANA HOLLIS on 11/06/17725 Review of Systems Review of Systems Constitutional: No chills, No fever Respiratory: dyspnea on exertion, short of breath Cardiovascular: No chest pain, No edema, No syncope Gastrointestinal: No abdominal pain, No nausea, No vomiting Musculoskeletal: no symptoms reported Skin: no symptoms reported Psychiatric/Neurological: No Symptoms Reported Endocrine: No Symptoms Reported Physical Exam Vital Signs Vital Signs - First Documented 08/09/21 16:05 Temp 35.9 Pulse 110 Resp 16 B/P (MAP) 119/101 (107) Pulse Ox 98 O2 Delivery Room Air Capillary Refill : Height, Weight, BMI Height: 6'3.00" Weight: 232lbs. 0.0oz. 105.096727ni; 33.17 BMI Method: General Appearance: No Apparent Distress, WD/WN Neck: Non Tender, Supple Respiratory: Lungs Clear, Normal Breath Sounds Cardiovascular: No Edema, Tachycardia Gastrointestinal: Non Tender, Soft Extremity: Normal Range of Motion Neurologic/Psychiatric: Alert, Oriented x3, No Motor/Sensory Deficits, Normal Mood/Affect Skin: Normal Color, Warm/Dry Progress/Results/Core Measures Results/Orders Lab Results Laboratory Tests Test 08/09/21 16:12 Range/Units White Blood Count 7.0 4.3-11.0 10^3/uL Red Blood Count 4.58 4.30-5.52 10^6/uL Hemoglobin 12.6 L 13.3-17.7 g/dL Hematocrit 39 L 40-54 % Mean Corpuscular Volume 85 80-99 fL Mean Corpuscular Hemoglobin 28 25-34 pg Mean Corpuscular Hemoglobin Concent 33 32-36 g/dL Red Cell Distribution Width 14.8 H 10.0-14.5 % Platelet Count 174 130-400 10^3/uL Mean Platelet Volume 10.9 9.0-12.2 fL Immature Granulocyte % (Auto) 0 % Neutrophils (%) (Auto) 69 42-75 % Lymphocytes (%) (Auto) 17 12-44 % Monocytes (%) (Auto) 11 0-12 % Eosinophils (%) (Auto) 3 0-10 % Basophils (%) (Auto) 0 0-10 % Neutrophils # (Auto) 4.9 1.8-7.8 X 10^3 Lymphocytes # (Auto) 1.2 1.0-4.0 X 10^3 Monocytes # (Auto) 0.8 0.0-1.0 X 10^3 Eosinophils # (Auto) 0.2 0.0-0.3 10^3/uL Basophils # (Auto) 0.0 0.0-0.1 10^3/uL Immature Granulocyte # (Auto) 0.0 0.0-0.1 10^3/uL Sodium Level 142 135-145 MMOL/L Potassium Level 4.2 3.6-5.0 MMOL/L Chloride Level 106 98-107 MMOL/L Carbon Dioxide Level 25 21-32 MMOL/L Anion Gap 11 5-14 MMOL/L Blood Urea Nitrogen 18 7-18 MG/DL Creatinine 1.49 H 0.60-1.30 MG/DL Estimat Glomerular Filtration Rate 57 BUN/Creatinine Ratio 12 Glucose Level 100 70-105 MG/DL Calcium Level 9.1 8.5-10.1 MG/DL Corrected Calcium 8.9 8.5-10.1 MG/DL Magnesium Level 1.9 1.6-2.4 MG/DL Total Bilirubin 0.4 0.1-1.0 MG/DL Aspartate Amino Transf (AST/SGOT) 29 5-34 U/L Alanine Aminotransferase (ALT/SGPT) 40 0-55 U/L Alkaline Phosphatase 63 40-136 U/L Troponin I 0.30 <0.30 NG/ML C-Reactive Protein 0.56 H <0.50 MG/DL Pro-B-Type Natriuretic Peptide 6636.0 H <75.0 PG/ML Total Protein 6.9 6.4-8.2 GM/DL Albumin 4.3 3.2-4.5 GM/DL My Orders Orders - BARFIELD,ANNITA L DO Cbc With Automated Diff (08/09/21 16:12) Comprehensive Metabolic Panel (08/09/21 16:12) Magnesium (08/09/21 16:12) Crp Fs (08/09/21 16:12) Troponin I Fs (08/09/21 16:12) Ed Iv/Invasive Line Start (08/09/21 16:12) Ekg Tracing (08/09/21 16:12) Monitor-Rhythm Ecg Trace Only (08/09/21 16:12) Chest Pa/Lat (2 View) (08/09/21 16:12) Probnp Fs (08/09/21 16:12) Vital Signs/I&O 08/09/21 08/09/21 16:05 17:06 Temp 35.9 35.9 Pulse 110 107 Resp 16 18 B/P (MAP) 119/101 (107) 121/68 Pulse Ox 98 98 O2 Delivery Room Air Room Air Progress Progress Note : Progress Note Patient with negative chest x-ray for any acute findings. Patient's EKG shows atrial fib with his heart rate while in the ER running from anywhere from about 90-130. Patient is currently not on any atrial for medication. He does have a history of atrial fib. We will start him on a low-dose extended release Cardizem. He should call and follow-up with Dr. Cuevas or another jewel bearing driller in the next couple days. Patient's O2 saturations ranged from around 92-97 while in the ER. Initial ECG Impression Date: Aug 09, 2021 Initial ECG Impression Time: 16:12 Initial ECG Rate: 122 Initial ECG Rhythm: A Fib/Flutter, PVC Initial ECG Intervals: QT (qtc 535) Comment afib, abnormal ekg Departure Impression Primary Impression: Atrial fibrillation Qualified Codes: I48.91 - Unspecified atrial fibrillation Additional Impression: Dyspnea on exertion Disposition: 01 HOME, SELF-CARE Condition: Stable Departure-Patient Inst. Referrals: NABEEL MUSTAFA MD (PCP/Family) Primary Care Physician Patient Instructions: Atrial Fibrillation (DC), Shortness of Breath (Dyspnea) (DC) Add. Discharge Instructions: Please call your jewel bearing driller for a follow-up and recheck of your symptoms in the next couple days Scripts Diltiazem HCl (Cardizem LA) 120 Mg Tab.er.24h 120 MG PO DAILY, #10 TAB Prov: ANNITA BARFIELD DO 08/09/21 ANNITA BARFIELD DO Aug 09, 2021 16:10
--- NOTE | 2021-08-09 16:37 | Diagnostic Imaging Report ---
INDICATION: Dyspnea. COMPARISON: None. FINDINGS: Frontal and lateral views of the chest demonstrate borderline cardiomegaly. Pulmonary vasculature, however, is within normal limits. The lungs are clear. There are no signs of infiltrate, pleural effusions or pneumothoraces. The visualized osseous structures show no acute abnormalities. IMPRESSION: 1. Borderline cardiomegaly, but no evidence of failure or focal infiltrate. Dictated by: Dictated on workstation # [id number]
[2021-08-09 16:40] LABS: BASOPHILS % (AUTO) 0 % (0-10); EOSINOPHILS # (AUTO) 0.2 10^3/uL (0.0-0.3); EOSINOPHILS % (AUTO) 3 % (0-10); HEMATOCRIT 39 % (40-54); HEMOGLOBIN 12.6 g/dL (13.3-17.7); LYMPHOCYTES # (AUTO) 1.2 X 10^3 (1.0-4.0); LYMPHOCYTES % (AUTO) 17 % (12-44); MEAN CORPUSCULAR HEMOGLOBIN 28 pg (25-34); MEAN CORPUSCULAR HGB CONC 33 g/dL (32-36); MEAN CORPUSCULAR VOLUME 85 fL (80-99); MEAN PLATELET VOLUME 10.9 fL (9.0-12.2); MONOCYTES # (AUTO) 0.8 X 10^3 (0.0-1.0); MONOCYTES % (AUTO) 11 % (0-12); NEUTROPHILS # (AUTO) 4.9 X 10^3 (1.8-7.8); NEUTROPHILS % (AUTO) 69 % (42-75); PLATELET COUNT 174 10^3/uL (130-400)
[2021-08-09 16:57] LABS: BILIRUBIN,TOTAL 0.4 MG/DL (0.1-1.0); CALCIUM 9.1 MG/DL (8.5-10.1); CREATININE SERUM 1.49 MG/DL (0.60-1.30); MAGNESIUM 1.9 MG/DL (1.6-2.4); POTASSIUM 4.2 MMOL/L (3.6-5.0)
[2021-08-09 16:58] LABS: ALBUMIN 4.3 GM/DL (3.2-4.5); TOTAL PROTEIN 6.9 GM/DL (6.4-8.2)
[2021-08-09 17:06] VITALS: BP 121/68
[2021-08-09] MEDS ORDERED: DILT120T PO (17:16)
== END 2021-08-09 17:19 | disposition home or self-care (01) ==
LOC: EDUNIT# 16:01 → ER FS 16:02
DX: I48.91 Unspecified atrial fibrillation (principal); R06.09 Other forms of dyspnea; G47.30 Sleep apnea, unspecified; Z79.01 Long term (current) use of anticoagulants; Z79.899 Other long term (current) drug therapy
CPT/HCPCS: 36415; 71046; 80053; 83735; 83880; 84484; 85025; 86141; 93005; 93041

== ENCOUNTER 2021-08-25 11:26 | Inpatient (IN) | payer MEDICARE ==
[~2021-08-25] VITALS: Ht 187.9 cm; Wt 102.3 kg
[~2021-08-25 11:26] MED LIST changes: +DILT120T PO
[2021-08-25 12:22] LABS: HEMATOCRIT 43 % (40-54); HEMOGLOBIN 13.6 g/dL (13.3-17.7); MEAN CORPUSCULAR HEMOGLOBIN 28 pg (25-34); MEAN CORPUSCULAR VOLUME 87 fL (80-99); WHITE BLOOD COUNT 7.2 10^3/uL (4.3-11.0)
[2021-08-25 12:23] LABS: MEAN CORPUSCULAR HGB CONC 32 g/dL (32-36)
[2021-08-25 12:24] LABS: BASOPHILS % (AUTO) 0 % (0-10); EOSINOPHILS % (AUTO) 1 % (0-10); LYMPHOCYTES # (AUTO) 1.4 X 10^3 (1.0-4.0); LYMPHOCYTES % (AUTO) 19 % (12-44); MEAN PLATELET VOLUME 11.3 fL (9.0-12.2); MONOCYTES # (AUTO) 0.6 X 10^3 (0.0-1.0); MONOCYTES % (AUTO) 8 % (0-12); NEUTROPHILS # (AUTO) 5.7 X 10^3 (1.8-7.8); NEUTROPHILS % (AUTO) 72 % (42-75); PLATELET COUNT 206 10^3/uL (130-400)
[2021-08-25 12:34] LABS: BILIRUBIN,URINE NEGATIVE (NEGATIVE); CLARITY,URINE SL CLOUDY; COLOR,URINE YELLOW; GLUCOSE, URINE (UA) NEGATIVE (NEGATIVE); KETONES,URINE NEGATIVE (NEGATIVE); LEUKOCYTE ESTERASE ,URINE NEGATIVE (NEGATIVE); NITRITE,URINE NEGATIVE (NEGATIVE); PH,URINE 5.5 (5-9); PROTEIN,URINE 2+ (NEGATIVE)
[2021-08-25] MEDS ORDERED: NS IV 1000 ML 1,000 ML IV STA ×2 (12:37→14:59)
[2021-08-25 12:44] LABS: INR 1.4 (0.8-1.4); PROTHROMBIN TIME PATIENT 17.2 SEC (12.2-14.7)
[2021-08-25 12:45] LABS: CHLORIDE 107 MMOL/L (98-107); SODIUM 141 MMOL/L (135-145)
--- NOTE | 2021-08-25 12:45 | ED General ---
General Chief Complaint: Respiratory Problems Stated Complaint: SOB; DIARRHEA; FATIGUE Nursing Triage Note: Patient presents to the ED with c/o shortness of breath and dirrhea x1 month. Patient reports that his shortness of breath has been worsening over this time. He was seen in the ED a couple weeks ago and has followed with his PCP as well. Source of Information: Patient, Spouse History of Present Illness Date Seen by Provider: Aug 25, 2021 Time Seen by Provider: 11:47 Initial Comments 65 yo male presenting with his to the ED with complaints of over a month of not feeling well. He has had fatigue, cough, diarrhea, shortness of breath. He has been seen in ED on for shortness of breath and was directed to follow up with Cardiology. He has seen his PCP as well as Urgent care. He reports negative Covid test last week with Urgent care here in [place]. His was concerned that he seemed to have more wheezing and shortness of breath. She states concern for needing labs and tests to look for infection. Patient defers answering questions to his when asked why he was in the ED. Timing/Duration: Other (over a month of symptoms) Severity: Moderate Modifying Factors: worse with Movement Associated Systoms: No Chest Pain; Cough; No Diaphoresis, No Fever/Chills; Headaches (occipital and base of skull/neck); No Loss of Appetite; Malaise; No Nausea/Vomiting, No Rash, No Seizure; Shortness of Air; No Syncope; Weakness, Other (fatigue, diarrhea) Allergies and Home Medications Allergies Coded Allergies: No Known Drug Allergies (Unverified , 11/06/17) Patient Home Medication List Home Medication List Reviewed: Yes Apixaban (Eliquis) 5 Mg Tablet, 5 MG PO BID, (Reported) Entered as Reported by: DEANA HOLLIS on 11/06/17 07 Atorvastatin Calcium (Atorvastatin Calcium) 20 Mg Tablet, 20 MG PO DAILY Prescribed by: YULIYA BROOKS on 11/06/17 08 Carvedilol (Carvedilol) 6.25 Mg Tablet, 6.25 MG PO BID, (Reported) Entered as Reported by: DEANA HOLLIS on 11/06/17 07 Clopidogrel Bisulfate (Plavix) 75 Mg Tablet, 75 MG PO DAILY, (Reported) Entered as Reported by: DEANA HOLLIS on 11/06/17 07 Diltiazem HCl (Cardizem LA) 120 Mg Tab.er.24h, 120 MG PO DAILY Prescribed by: ANNITA BARFIELD on 08/09/21 1716 Levothyroxine Sodium (Levothyroxine Sodium) 175 Mcg Tablet, 175 MCG PO DAILY, (Reported) Entered as Reported by: DEANA HOLLIS on 11/06/17725 Review of Systems Review of Systems Constitutional: No chills, No dizziness, No fever; malaise, weakness (with fatigue) EENTM: no symptoms reported Respiratory: cough, short of breath; No stridor; wheezing Cardiovascular: No chest pain Gastrointestinal: No abdominal pain; diarrhea; No melena, No nausea, No vomiting Genitourinary: No dysuria Musculoskeletal: neck pain (pain at base of skull and top of neck for last few weeks) Skin: No rash Psychiatric/Neurological: See HPI Hematologic/Lymphatic: Denies Blood Clots; Easy Bleeding (on Eliquis/Plavix), Easy Bruising Past Sxmszbs-Wclgyq-Rfjkfo Hx Patient Social History Tobacco Use?: No Smoking Status: Former Smoker Use of E-Cig and/or Vaping dev: No Substance use?: No Alcohol Use?: No Pt feels they are or have been: No Immunizations Up To Date Influenza Vaccine Up-to-Date: No; Not Current First/Initial COVID19 Vaccinat: December 2020 Second COVID19 Vaccination Zachary: December 2020 COVID19 Vaccine 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 CAD Cardiac: Yes Atrial Fibrillation Physical Exam Vital Signs Vital Signs - First Documented 08/25/21 11:32 Temp 35.6 Pulse 104 Resp 20 B/P (MAP) 138/114 (122) Pulse Ox 100 O2 Delivery Room Air Capillary Refill : Less Than 3 Seconds Height, Weight, BMI Height: 6'3.00" Weight: 232lbs. 0.0oz. 105.487116vl; 32.00 BMI Method: General Appearance: No Apparent Distress, WD/WN HEENT: Pharynx Normal Neck: Full Range of Motion, Normal Inspection, Supple, Other (mild tenderness to palpation of paraspinal muscles upper cervical spine area) Respiratory: Chest Non Tender, Lungs Clear, Normal Breath Sounds, No Accessory Muscle Use, No Respiratory Distress Cardiovascular: Normal Peripheral Pulses, Irregularly Irregular, Tachycardia Gastrointestinal: Normal Bowel Sounds, No Pulsatile Mass, Non Tender, Soft Rectal: Deferred Extremity: Normal Capillary Refill, Normal Inspection, No Pedal Edema Neurologic/Psychiatric: Alert, Oriented x3 Skin: Normal Color, Warm/Dry Progress/Results/Core Measures Suspected Sepsis SIRS Temperature: Pulse: 104 Respiratory Rate: 20 Laboratory Tests 08/25/21 11:40: White Blood Count 7.2 Blood Pressure 138 /114 Mean: 122 Laboratory Tests 08/25/21 11:40: Creatinine 2.05H, INR Comment 1.4, Platelet Count 206, Total Bilirubin 0.7 Results/Orders Lab Results Laboratory Tests Test 08/25/21 11:40 08/25/21 12:29 Range/Units White Blood Count 7.2 4.3-11.0 10^3/uL Red Blood Count 4.91 4.30-5.52 10^6/uL Hemoglobin 13.6 13.3-17.7 g/dL Hematocrit 43 40-54 % Mean Corpuscular Volume 87 80-99 fL Mean Corpuscular Hemoglobin 28 25-34 pg Mean Corpuscular Hemoglobin Concent 32 32-36 g/dL Red Cell Distribution Width 15.4 H 10.0-14.5 % Platelet Count 206 130-400 10^3/uL Mean Platelet Volume 11.3 9.0-12.2 fL Immature Granulocyte % (Auto) 0 % Neutrophils (%) (Auto) 72 42-75 % Lymphocytes (%) (Auto) 19 12-44 % Monocytes (%) (Auto) 8 0-12 % Eosinophils (%) (Auto) 1 0-10 % Basophils (%) (Auto) 0 0-10 % Neutrophils # (Auto) 5.7 1.8-7.8 X 10^3 Lymphocytes # (Auto) 1.4 1.0-4.0 X 10^3 Monocytes # (Auto) 0.6 0.0-1.0 X 10^3 Eosinophils # (Auto) 0.0 0.0-0.3 10^3/uL Basophils # (Auto) 0.0 0.0-0.1 10^3/uL Immature Granulocyte # (Auto) 0.0 0.0-0.1 10^3/uL Prothrombin Time 17.2 H 12.2-14.7 SEC INR Comment 1.4 0.8-1.4 Activated Partial Thromboplast Time 33 24-35 SEC Sodium Level 141 135-145 MMOL/L Potassium Level 5.0 3.6-5.0 MMOL/L Chloride Level 107 98-107 MMOL/L Carbon Dioxide Level 23 21-32 MMOL/L Anion Gap 11 5-14 MMOL/L Blood Urea Nitrogen 35 H 7-18 MG/DL Creatinine 2.05 H 0.60-1.30 MG/DL Estimat Glomerular Filtration Rate 40 BUN/Creatinine Ratio 17 Glucose Level 136 H 70-105 MG/DL Calcium Level 9.2 8.5-10.1 MG/DL Corrected Calcium 8.5-10.1 MG/DL Magnesium Level 1.8 1.6-2.4 MG/DL Total Bilirubin 0.7 0.1-1.0 MG/DL Aspartate Amino Transf (AST/SGOT) 22 5-34 U/L Alanine Aminotransferase (ALT/SGPT) 28 0-55 U/L Alkaline Phosphatase 57 40-136 U/L Troponin I < 0.30 <0.30 NG/ML C-Reactive Protein 0.58 H <0.50 MG/DL Pro-B-Type Natriuretic Peptide 91922.0 H <75.0 PG/ML Total Protein 7.4 6.4-8.2 GM/DL Albumin 4.6 H 3.2-4.5 GM/DL Urine Color YELLOW Urine Clarity SL CLOUDY Urine pH 5.5 5-9 Urine Specific Morton >=1.030 1.016-1.022 Urine Protein 2+ H NEGATIVE Urine Glucose (UA) NEGATIVE NEGATIVE Urine Ketones NEGATIVE NEGATIVE Urine Nitrite NEGATIVE NEGATIVE Urine Bilirubin NEGATIVE NEGATIVE Urine Urobilinogen 0.2 < = 1.0 MG/DL Urine Leukocyte Esterase NEGATIVE NEGATIVE Urine RBC (Auto) TRACE-I H NEGATIVE Urine RBC 0-2 /HPF Urine WBC RARE /HPF Urine Squamous Epithelial Cells RARE /HPF Urine Crystals NONE /LPF Urine Bacteria NEGATIVE /HPF Urine Casts PRESENT /LPF Urine Hyaline Casts 10-25 H /LPF Urine Mucus MODERATE H /LPF Urine Culture Indicated NO My Orders Orders - GIO ARTEAGA MD Monitor-Rhythm Ecg Trace Only (08/25/21 12:08) Ed Iv/Invasive Line Start (08/25/21 12:08) Cbc With Automated Diff (08/25/21 12:08) Comprehensive Metabolic Panel (08/25/21 12:08) Crp Fs (08/25/21 12:08) Troponin I Fs (08/25/21 12:08) Protime With Inr (08/25/21 12:08) Partial Thromboplastin Time (08/25/21 12:08) Ekg Tracing (08/25/21 12:08) Probnp Fs (08/25/21 12:08) Ua Culture If Indicated (08/25/21 12:08) Magnesium (08/25/21 12:08) Chest 1 View Ap/Pa Only (08/25/21 12:37) Stool Culture (08/25/21 12:37) Fecal Wbc (08/25/21 12:37) C Difficile Ag + Toxin A/B. (08/25/21 12:37) Isolation Central Supply Req (08/25/21 12:37) Ns Iv 1000 Ml (Sodium Chloride 0.9%) (08/25/21 12:37) Diltiazem Injection (Cardizem Injection) (08/25/21 14:02) Diltiazem Drip Pre-Mix (Cardizem Drip Pr (08/25/21 14:02) Apixaban Tablet (Eliquis Tablet) (08/25/21 14:04) Ns Iv 1000 Ml (Sodium Chloride 0.9%) (08/25/21 14:59) Vital Signs/I&O 08/25/21 08/25/21 11:32 15:24 Temp 35.6 35.6 Pulse 104 122 Resp 20 20 B/P (MAP) 138/114 (122) 108/82 Pulse Ox 100 96 O2 Delivery Room Air Room Air Capillary Refill : Less Than 3 Seconds Blood Pressure Mean: 122 Progress Note #1: Progress Note Counseled pt and spouse that we can look for life threatening conditions here in the ED, but with this for over a month they may not be able to find a specific diagnosis Progress Note #2: Progress Note Labs show stable CBC without elevation in the white blood cell count. He has hemoglobin of 13.6. His chemistry panel shows negative troponin but he does have elevated proBNP over 11,000. This is almost twice what it was on August 09. He has atrial fibrillation with rapid ventricular response on his electrocardiogram. His urinalysis shows elevated specific gravity to go along with some dehydration. His creatinine is elevated to 2.05 with a BUN of 35. He previously on August 09 had a BUN of 18 and a creatinine of 1.49. This elevation of the creatinine and BUN may be related to some dehydration from the diarrhea he has been having.. His chest x-ray showed cardiomegaly with some pulmonary vascular congestion. Reviewed with the patient that he had signs of heart failure and fluid overload as well as his kidneys were not filtering as well. Recommended admission to get better control of his heart rate with the diltiazem drip and that he may need some fluid to help with his kidneys but trying to balance out hydration with diuresis. Initially he was stating that he had too many things to do at home and could not be admitted but with further discussion with the patient and spouse he relented and accepted admission to [facility]. He follows with Dr. Brooks for cardiology. Progress Note #3: Progress Note 1414 I discussed the case with Dr. Brooks and he recommended a small fluid bolus then follow-up with a single dose of Lasix to see if that might help with his diuresis. A lot of this may just be related to his uncontrolled atrial fibrillation rather than fluid overload. Page placed to Dr. Moss for admit to hospitalist service since pt follows with Dr. Mustafa. Progress Note #4: Progress Note 4626 d/w Dr. Moss once she was available to review information about admit. She accepted pt for admit to ICU for diltiazem drip and monitoring of cardiac function. With his elevated specific gravity on urine and that he looks like he might be intravascularly dry despite the elevated BNP and pulmonary vascular congestion on CXR will try gentle hydration and see how he responds to controlling atrial fibrillation. Once that is controlled better he should have improved circulation which will hopefully improve his renal insufficiency. ECG Initial ECG Impression Date: Aug 25, 2021 Initial ECG Impression Time: 11:43 Initial ECG Rate: 140 Initial ECG Rhythm: A Fib/Flutter Comment Atrial fibrillation with a heart rate of 140 bpm. Left axis deviation. Borderline prolonged QT interval of 319 ms with a QTc interval 487 ms. Appears similar to prior tracings in the system other than uncontrolled A. fib. Diagnostic Imaging Diagonstic Imaging: Xray Plain Films/CT/US/NM/MRI: chest Comments NAME: [facility] REC#: [id number] PT STATUS: REG ER : 1955 PHYSICIAN: GIO ARTEAGA MD ADMIT DATE: 08/25/21/ER FS Draft Date of Exam:08/25/21 CHEST 1 VIEW AP/PA ONLY INDICATION: Cough and shortness of breath. Frontal chest obtained at 12:29 p.m. and compared to 08/09/2021. FINDINGS: There is mild cardiomegaly and central vascular congestion. There is no focal infiltrate, pneumothorax, or pleural fluid. IMPRESSION: Cardiomegaly and mild central vascular prominence with no acute infiltrate, pneumothorax, or pleural fluid. Dictated on workstation # [id number] Dict: 08/25/21 1256 Trans: 08/25/21 1300 [id number] Interpreted by: RAF ROLDAN MD Electronically signed by: Reviewed: Reviewed by Me Departure Communication (Admissions) Time/Spoke to Admitting Phy: 14:40 d/w Dr. Moss for hospitalist service and she accepted pt for admit. Time/Spoke to Consulting Phy: 14:15 d/w Dr. Brooks as pt follows with him for chronic cardiac care. He was made aware of consult and will follow along. Will try to get better control of Atrial Fibrillation and try some gentle hydration. May need diuresis but will start with this first. Impression Primary Impression: Atrial fibrillation with rapid ventricular response Additional Impressions: Renal insufficiency Dehydration Diarrhea Qualified Codes: R19.7 - Diarrhea, unspecified Disposition: 30 STILL A PATIENT Condition: Stable Admissions Decision to Admit Reason: Admit from ER (General) Decision to Admit/Date: Aug 25, 2021 Time/Decision to Admit Time: 14:40 Departure-Patient Inst. Referrals: NABEEL MUSTAFA MD (PCP/Family) Primary Care Physician GIO ARTEAGA MD Aug 25, 2021 12:45
[2021-08-25 12:46] LABS: ALANINE AMINOTRANSFERASE 28 U/L (0-55); ALKALINE PHOSPHATASE 57 U/L (40-136); BILIRUBIN,TOTAL 0.7 MG/DL (0.1-1.0); BUN/CREATININE RATIO 17; CALCIUM 9.2 MG/DL (8.5-10.1); CARBON DIOXIDE 23 MMOL/L (21-32); CREATININE SERUM 2.05 MG/DL (0.60-1.30); GFR ESTIMATED 40; GLUCOSE 136 MG/DL (70-105)
[2021-08-25 12:47] LABS: ALBUMIN 4.6 GM/DL (3.2-4.5); TOTAL PROTEIN 7.4 GM/DL (6.4-8.2)
[2021-08-25 12:48] LABS: MAGNESIUM 1.8 MG/DL (1.6-2.4)
[2021-08-25 12:54] LABS: BACTERIA,URINE NEGATIVE /HPF; RBC,URINE 0-2 /HPF; SQUAMOUS EPITHELIAL CELL,UR RARE /HPF; WBC,URINE RARE /HPF
--- NOTE | 2021-08-25 13:01 | Diagnostic Imaging Report ---
INDICATION: Cough and shortness of breath. Frontal chest obtained at 12:29 p.m. and compared to 08/09/2021. FINDINGS: There is mild cardiomegaly and central vascular congestion. There is no focal infiltrate, pneumothorax, or pleural fluid. IMPRESSION: Cardiomegaly and mild central vascular prominence with no acute infiltrate, pneumothorax, or pleural fluid. Dictated by: Dictated on workstation # [id number]
[2021-08-25] MEDS ORDERED: dilTIAZem DRIP PRE-MIX 125 ML IV STA (14:02)
[2021-08-25] MEDS ORDERED: APIXABAN 5 MG (ELIQUIS) TABLET PO STA (14:04)
--- NOTE | 2021-08-25 16:47 | Consultation-Cardiology ---
HPI-Cardiology Cardiology Consultation: Date of Consultation 08/25/21 Date of Admission Attending Physician Dona Moss MD Admitting Physician Dipak Martinez MD Consulting Physician LAYLA MCGUIRE SHT-Mpeftd-Zhgixq Hx Patient Social History Smoking Status: Former Smoker Have you traveled recently?: Yes Where was recent travel?: [place] Alcohol Use?: No Pt feels they are or have been: No Immunizations Up To Date Date of Influenza Vaccine: Aug 06, 2017 Past Medical History PMH As described under Assessment. Allergies and Home Medications Allergies Coded Allergies: No Known Drug Allergies (Unverified , 11/06/17) Patient Home Medication List Acetaminophen (Tylenol Extra Strength) 500 Mg Tablet, 1,000 MG PO Q8H PRN for PAIN-MILD (1-4), (Reported) Entered as Reported by: EDEN OWUSU on 08/26/21 1023 Last Action: Continued Apixaban (Eliquis) 5 Mg Tablet, 5 MG PO BID, (Reported) Entered as Reported by: DEANA HOLLIS on 11/06/17 0726 Last Action: Held Atorvastatin Calcium (Atorvastatin Calcium) 20 Mg Tablet, 20 MG PO HS, (R eported) Entered as Reported by: EDEN OWUSU on 08/26/21 1023 Last Action: Continued Carvedilol (Carvedilol) 3.125 Mg Tablet, 3.125 MG PO BID, (Reported) Entered as Reported by: EDEN OWUSU on 08/26/21 102 Last Action: Held Clopidogrel Bisulfate (Clopidogrel) 75 Mg Tablet, 75 MG PO DAILY, (Reported) Entered as Reported by: EDEN OWUSU on 08/26/21 102 Last Action: Held Diltiazem HCl (Diltiazem 24Hr ER) 120 Mg Cap.er.24h, 120 MG PO HS, (Reported) Entered as Reported by: EDEN OWUSU on 08/26/21 102 Last Action: Held Levothyroxine Sodium (Euthyrox) 150 Mcg Tablet, 150 MCG PO DAILY, (Reported) Entered as Reported by: EDEN OWUSU on 08/26/21 102 Last Action: Continued Discontinued Medications Atorvastatin Calcium (Atorvastatin Calcium) 20 Mg Tablet, 20 MG PO DAILY Discontinued Reason: No Longer Taking Prescribed by: YULIYA CAMACHO on 11/06/17 0852 Last Action: Discontinued Carvedilol (Carvedilol) 6.25 Mg Tablet, 6.25 MG PO BID, (Reported) Discontinued Reason: No Longer Taking Entered as Reported by: DEANA HOLLIS on 11/06/17725 Last Action: Discontinued Clopidogrel Bisulfate (Plavix) 75 Mg Tablet, 75 MG PO DAILY, (Reported) Discontinued Reason: No Longer Taking Entered as Reported by: DEANA HOLLIS on 11/06/17725 Last Action: Discontinued Diltiazem HCl (Cardizem LA) 120 Mg Tab.er.24h, 120 MG PO DAILY Discontinued Reason: No Longer Taking Prescribed by: ANNITA BARFIELD on 08/09/211715 Last Action: Discontinued Levothyroxine Sodium (Levothyroxine Sodium) 175 Mcg Tablet, 175 MCG PO DAILY, (Reported) Discontinued Reason: No Longer Taking Entered as Reported by: DAENA HOLLIS on 11/06/17725 Last Action: Discontinued Physical Exam-Cardiology Physical Exam Vital Signs/I&O 08/29/21 08/29/21 08/30/21 08/30/21 21:00 21:09 00:26 01:00 Temp 36.6 Pulse 98 92 93 Resp 16 B/P (MAP) 100/62 Pulse Ox 96 97 O2 Delivery Room Air Room Air 08/30/21 08/30/21 08/30/21 04:14 07:00 07:28 Temp 36.4 Pulse 111 103 Resp 18 B/P (MAP) 104/92 Pulse Ox 96 96 O2 Delivery Room Air Room Air 08/29/21 23:59 Intake Total 1350 ml Balance 1350 ml Capillary Refill : Less Than 3 Seconds Data Review Labs Laboratory Tests 08/30/21 05:15: White Blood Count 8.9, Red Blood Count 5.38, Hemoglobin 14.9, Hematocrit 45, Mean Corpuscular Volume 84, Mean Corpuscular Hemoglobin 28, Mean Corpuscular Hemoglobin Concent 33, Red Cell Distribution Width 14.6H, Platelet Count 217, Mean Platelet Volume 10.9, Immature Granulocyte % (Auto) 0, Neutrophils (%) (Auto) 70, Lymphocytes (%) (Auto) 14, Monocytes (%) (Auto) 12, Eosinophils (%) (Auto) 4, Basophils (%) (Auto) 0, Neutrophils # (Auto) 6.2, Lymphocytes # (Auto) 1.2, Monocytes # (Auto) 1.0, Eosinophils # (Auto) 0.4H, Basophils # (Auto) 0.0, Immature Granulocyte # (Auto) 0.0, Sodium Level 138, Potassium Level 4.2, Chloride Level 103, Carbon Dioxide Level 20L, Anion Gap 15H, Blood Urea Nitrogen 29H, Creatinine 1.60H, Estimat Glomerular Filtration Rate 53, BUN/Creatinine Ratio 18, Glucose Level 123H, Calcium Level 9.0, Corrected Calcium 9.1, Phosphorus Level 3.8, Magnesium Level 1.8, Total Bilirubin 0.8, Aspartate Amino Transf (AST/SGOT) 23, Alanine Aminotransferase (ALT/SGPT) 32, Alkaline Phosphatase 44, Total Protein 6.9, Albumin 3.9 Microbiology 08/25/21 MRSA Screen - Final, Complete MRSA not isolated Radiology NAME: MARBIN G[facility]EN [facility] REC#: [id number] PT STATUS: REG ER : 1955 PHYSICIAN: GIO ARTEAGA MD ADMIT DATE: 08/25/21/ER FS Signed Date of Exam:08/25/21 CHEST 1 VIEW AP/PA ONLY INDICATION: Cough and shortness of breath. Frontal chest obtained at 12:29 p.m. and compared to 08/09/2021. FINDINGS: There is mild cardiomegaly and central vascular congestion. There is no focal infiltrate, pneumothorax, or pleural fluid. IMPRESSION: Cardiomegaly and mild central vascular prominence with no acute infiltrate, pneumothorax, or pleural fluid. Dictated by: Dictated on workstation # [id number] Dict: 08/25/21 1256 Trans: 08/25/21 1444 [id number] Interpreted by: RAF ROLDAN MD Electronically signed by: RAF ROLDAN MD 08/25/21 1444 A/P-Cardiology Assessment/Admission Diagnosis Leg claudication and PAD: -Severe PAD diagnosed on an abd ao CTA on 09/05/17 at [facility]: complete occ of R SFA, single vessel runoff in thee R calf and in the L calf. - Has had PCI to the R leg by Dr Matta at [place], [place] on 09/10/17. Has followed with Dr Bernard at [facility]. - Has undergone further PAD intervention on 04/01/21 on the R leg with and is awaiting intervention on the L leg with Dr Bernard Exertional shortness of breath, chronic, unchanged Carotid u/s of 11/14/18 showed mild bilat carotid dz CAD -Abnormal stress test on 09/25/17 showed a small amount of basal inf ischemia and LVEF 47%. - Subsequent cardiac cath of Nov 06, 2017 showed angiographically mild CAD. LVEF 55-60%. Normal LVEDP. Mild calcification of the aortic arch. No significant mitral regurg. - Repeat MPI of 12/02/19 shows the small amount of basal inf-lat ischemia (essentially the same finding as in Sep 2017) that has already been investigated with cath described above Echo of 11/20/19 showed LVEF 60-65%, mod dilatation of LA, RVSP 40 mmHg (prob bicuspid ao valve with calcification, but w/o stenosis on echo of 2016) SSS with PAF - alternating with sinus asa (competing with junc rhythm). - PAFlutter documented on an ECG of 09/05/17 at [facility]. S Asa (with junctional competition) documented on an ECG of 09/07/17 KRISTINA - treated with CPAP Tobacco use, chronic, quit on 09/10/17 Impaired fasting glucose Hypothyroidism, treated with thyroid replacement by his pcp, Dr Juan Heller h/o CAD (brothers at age younger than 60) CTA of 09/05/17 also showed bilat inguinal hernias containing only fat, bilat hydrocele. prostate enlargement and urinary bladder wall thickening, umbilical hernia containing only fat BP difference of approx 20 mmHg from right arm to left arm on an office visit in 2018. CT angio of 05/09/18 was reported to be a poor study, but did not report any significant stenosis. No significant bp diff today LAYLA HENNING HAD[employer]OP ARCHITECT Aug 25, 2021 16:47
[2021-08-25] MEDS: dilTIAZem DRIP PRE-MIX 125 ML IV SCH (16:57)
[2021-08-25] MEDS ORDERED: CATHETER FLUSH 10 ML SYR IV PRN (17:00)
[2021-08-25] MEDS ORDERED: NS IV 1000 ML 1,000 ML IV SCH (17:00)
--- NOTE | 2021-08-25 17:53 | Consultation-Cardiology ---
HPI-Cardiology Cardiology Consultation: Date of Consultation 08/25/21 Time Seen by a Provider: 16:40 Date of Admission Attending Physician Dona Moss MD Admitting Physician Dipak Martinez MD Consulting Physician YULIYA CAMACHO MD, MA, FACP, FACC, FSCAI, CCDS HPI: Chief Complaint: Gen malaise, weakness, and shortness of breath 65 yo man with multiple comorbidities (see below under Assessment) who was admitted through the ER today after he presented with increasing cough (mostly dry), gen weakness, moderate shortness of breath, intermittent diarrhea, some nausea, and poor appetite for several days. He states he has been to Urgent Care lately, was tested for COVID and found negative for it. Symptoms have continued unabated. Notes low oral intake. Denies cp or syncope. Feels a somewhat fast and irreg heart rate. Denies blood in stools of vomitus. Review of Systems-Cardiology Review of Systems Constitutional: As described under HPI Eyes: No vision change Ears/Nose/Throat: No ear discharge, No nasal drainage Respiratory: As described under HPI Cardiovascular: As described under HPI Gastrointestinal: As described under HPI Genitourinary: No dysuria, No hematuria, No urine frequency changes Musculoskeletal: other (has chronic joint and back pain) Skin: No rash, No ulcerations Psychiatric/Neurological: No seizure, No focal weakness, No syncope Hematologic: No bleeding abnormalities UNS-Tjodqm-Isvlln Hx Patient Social History Smoking Status: Former Smoker Have you traveled recently?: Yes Where was recent travel?: [place] Alcohol Use?: No Pt feels they are or have been: No Immunizations Up To Date Date of Influenza Vaccine: Aug 06, 2017 Past Medical History PMH As described under Assessment. Family Medical History Family Medical History: Does not report fam h/o early CAD or SCD Allergies and Home Medications Allergies Coded Allergies: No Known Drug Allergies (Unverified , 11/06/17) Patient Home Medication List Home Medication List Reviewed: Yes Apixaban (Eliquis) 5 Mg Tablet, 5 MG PO BID, (Reported) Entered as Reported by: DEANA HOLLIS on 11/06/17 0739 Atorvastatin Calcium (Atorvastatin Calcium) 20 Mg Tablet, 20 MG PO DAILY Prescribed by: YULIYA CAMACHO on 11/06/17 0852 Carvedilol (Carvedilol) 6.25 Mg Tablet, 6.25 MG PO BID, (Reported) Entered as Reported by: DEANA HOLLIS on 11/06/17 0726 Clopidogrel Bisulfate (Plavix) 75 Mg Tablet, 75 MG PO DAILY, (Reported) Entered as Reported by: DEANA HOLLIS on 11/06/17 07 Diltiazem HCl (Cardizem LA) 120 Mg Tab.er.24h, 120 MG PO DAILY Prescribed by: ANNITA BARFIELD on 08/09/21 1716 Levothyroxine Sodium (Levothyroxine Sodium) 175 Mcg Tablet, 175 MCG PO DAILY, (Reported) Entered as Reported by: DEANA HOLLIS on 11/06/17725 Physical Exam-Cardiology Physical Exam Vital Signs/I&O 08/25/21 08/25/21 08/25/21 08/25/21 11:32 15:24 16:27 16:36 Temp 35.6 35.6 36.0 Pulse 104 122 110 Resp 20 20 18 B/P (MAP) 138/114 (122) 108/82 126/89 Pulse Ox 100 96 93 100 O2 Delivery Room Air Room Air Room Air Room Air Capillary Refill : Less Than 3 Seconds Constitutional: AAO x 3, well-developed, well-nourished HEENT: EOMI, hearing is well preserved; No xanthelasmas are seen Neck: carotid pulses are 2 + bilaterally, with good upstrokes Respiratory: No accessory muscle use; other (scattered rhonchi, exp wheezes, somewhat diminished air entry) Cardiovascular: regular rate-rhythm, S1 and S2, systolic murmur (soft KADEN at card base) Gastrointestinal: No tender; soft; No guarding, No rebound; audible bowel sounds Extremities: No cyanosis, No significant edema Neurologic/Psychiatric: oriented x 3, other (moves all limbs equally) Skin: No rash on exposed areas, No ulcerations on exposed areas Data Review Labs Laboratory Tests 08/25/21 11:40: White Blood Count 7.2, Red Blood Count 4.91, Hemoglobin 13.6, Hematocrit 43, Mean Corpuscular Volume 87, Mean Corpuscular Hemoglobin 28, Mean Corpuscular Hemoglobin Concent 32, Red Cell Distribution Width 15.4H, Platelet Count 206, Mean Platelet Volume 11.3, Immature Granulocyte % (Auto) 0, Neutrophils (%) (Auto) 72, Lymphocytes (%) (Auto) 19, Monocytes (%) (Auto) 8, Eosinophils (%) (Auto) 1, Basophils (%) (Auto) 0, Neutrophils # (Auto) 5.7, Lymphocytes # (Auto) 1.4, Monocytes # (Auto) 0.6, Eosinophils # (Auto) 0.0, Basophils # (Auto) 0.0, Immature Granulocyte # (Auto) 0.0, Prothrombin Time 17.2H, INR Comment 1.4, Activated Partial Thromboplast Time 33, Sodium Level 141, Potassium Level 5.0, Chloride Level 107, Carbon Dioxide Level 23, Anion Gap 11, Blood Urea Nitrogen 35H, Creatinine 2.05H, Estimat Glomerular Filtration Rate 40, BUN/Creatinine Ratio 17, Glucose Level 136H, Calcium Level 9.2, Corrected Calcium , Magnesium Level 1.8, Total Bilirubin 0.7, Aspartate Amino Transf (AST/SGOT) 22, Alanine Aminotransferase (ALT/SGPT) 28, Alkaline Phosphatase 57, Troponin I < 0.30, C- Reactive Protein 0.58H, Pro-B-Type Natriuretic Peptide 93909.0H, Total Protein 7.4, Albumin 4.6H 08/25/21 12:29: Urine Color YELLOW, Urine Clarity SL CLOUDY, Urine pH 5.5, Urine Specific [place] >=1.030, Urine Protein 2+H, Urine Glucose (UA) NEGATIVE, Urine Ketones NEGATIVE, Urine Nitrite NEGATIVE, Urine Bilirubin NEGATIVE, Urine Urobilinogen 0.2, Urine Leukocyte Esterase NEGATIVE, Urine RBC (Auto) TRACE-IH, Urine RBC 0- 2, Urine WBC RARE, Urine Squamous Epithelial Cells RARE, Urine Crystals NONE, Urine Bacteria NEGATIVE, Urine Casts PRESENT, Urine Hyaline Casts 10-25H, Urine Mucus MODERATEH, Urine Culture Indicated NO Laboratory Tests 08/25/21 11:40 A/P-Cardiology Assessment/Admission Diagnosis Acute renal failure likely due to intravascular volume depletion Probable lower resp tract infection, acute Leg claudication and PAD: -Se[facility] complete occ of R SFA, single vessel runoff in thee R calf and in the L calf. - Has had PCI to the R leg by Dr Matta at [place], [place] on 09/10/17. Has followed with Dr Bernard at [facility]. - Has undergone further PAD intervention on 04/01/21 on the R leg with and is awaiting intervention on the L leg with Dr Bernard Exertional shortness of breath, chronic, of undetermined etiology Carotid u/s of 11/14/18 showed mild bilat carotid dz CAD -Abnormal stress test on 09/25/17 showed a small amount of basal inf ischemia and LVEF 47%. - Subsequent cardiac cath of Nov 06, 2017 showed angiographically mild CAD. LVEF 55-60%. Normal LVEDP. Mild calcification of the aortic arch. No significant mitral regurg. - Repeat MPI of 12/02/19 shows the small amount of basal inf-lat ischemia ( essentially the same finding as in Sep 2017) that has already been investigated with cath described above Echo of 11/20/19 showed LVEF 60-65%, mod dilatation of LA, RVSP 40 mmHg (prob bicuspid ao valve with calcification, but w/o stenosis on echo of 2016) SSS with PAF - alternating with sinus asa (competing with junc rhythm). - PAFlutter documented on an ECG of 09/05/17 at [facility]. S Asa (with junctional competition) documented on an ECG of 09/07/17 KR[place] - treated with CPAP Tobacco use, chronic, quit on 09/10/17 Impaired fasting glucose Hypothyroidism, treated with thyroid replacement by his pcp, Dr Martinez Fam h/o CAD (brothers at age younger than 60) CTA of 09/05/17 also showed bilat inguinal hernias containing only fat, bilat hydrocele. prostate enlargement and urinary bladder wall thickening, umbilical hernia containing only fat BP difference of approx 20 mmHg from right arm to left arm on an office visit in 2018. CT angio of 05/09/18 was reported to be a poor study, but did not report any significant stenosis. No significant bp diff today Discussion and Recomendations * Hospitalist service managing ac renal failure and suspected resp tract infection * iv fluids * Monitor labs * No distinct evidence of decomp CHF. BNP elevation likely due to ac renal failure * Echo YULIYA CAMACHO MD FACP [facility] CCDS Aug 25, 2021 17:53
[2021-08-25 18:05] VITALS: BP 138/114
[2021-08-25] MEDS ORDERED: RT-ALBUTEROL/IPRATROPIUM 3 ML (DUONEB) VIAL INH PRN (18:15)
--- NOTE | 2021-08-25 18:18 | Tele-ICU Consult ---
History of Present Illness History of Present Illness Date Seen by Provider: Aug 25, 2021 Time Seen by Provider: 18:18 Date of Admission Allergies and Home Medications Allergies Coded Allergies: No Known Drug Allergies (Unverified , 11/06/17) Home Medications Apixaban 5 Mg Tablet, 5 MG PO BID, (Reported) Atorvastatin Calcium 20 Mg Tablet, 20 MG PO DAILY Prescribed by: YULIYA CAMACHO on 11/06/17 0852 Carvedilol 6.25 Mg Tablet, 6.25 MG PO BID, (Reported) Clopidogrel Bisulfate 75 Mg Tablet, 75 MG PO DAILY, (Reported) Diltiazem HCl 120 Mg Tab.er.24h, 120 MG PO DAILY Prescribed by: ANNITA BARFIELD on 08/09/21 1716 Levothyroxine Sodium 175 Mcg Tablet, 175 MCG PO DAILY, (Reported) Past Medical/Social/Family Hx Patient Social History Tobacco Use?: No Smoking Status: Former Smoker Use of E-Cig and/or Vaping dev: No Substance use?: No Alcohol Use?: No Pt stated abuse/neglect: No Immunizations Up To Date Influenza Vaccine Up-to-Date: No; Not Current First/Initial COVID19 Vaccinat: JANUARY 09 Second COVID19 Vaccination Zachary: JANUARY 09 Tetanus Booster (TDap): Less Than 5 Years TB Skin Test: Negative Current Status Advance Directives: No Communicates: Verbally Primary Language: Nigerien Preferred Spoken Language: Nigerien Is interpretation needed?: No Sensory deficits: Hearing impairment Implanted or Applied Medical D: Stents Review of Systems Constitutional: see HPI Sepsis Event Evaluation Height, Weight, BMI Height: 6'3.00" Weight: 232lbs. 0.0oz. 105.008656wr; 32.00 BMI Method: Exam Exam Patient acknowledged, consented, and participated in this virtual visit which was conducted using real time audio/video Vital Signs Date Time Temp Pulse Resp B/P (MAP) Pulse Ox O2 Delivery O2 Flow Rate FiO2 08/25/21 18:05 35.6 104 100 21 08/25/21 16:36 100 Room Air 08/25/21 16:27 36.0 110 18 126/89 93 Room Air 08/25/21 15:24 35.6 122 20 108/82 96 Room Air 08/25/21 11:32 35.6 104 20 138/114 (122) 100 Room Air Height & Weight Height: 6'3.00" Weight: 232lbs. 0.0oz. 105.397422co; 32.00 BMI Method: General Appearance: No Apparent Distress, WD/WN HEENT: Pharynx Normal Neck: Full Range of Motion, Normal Inspection, Supple, Other (mild tenderness to palpation of paraspinal muscles upper cervical spine area) Respiratory: Chest Non Tender, Lungs Clear, Normal Breath Sounds, No Accessory Muscle Use, No Respiratory Distress Cardiovascular: Normal Peripheral Pulses, Irregularly Irregular, Tachycardia Capillary Refill: Less Than 3 Seconds Extremity: Normal Capillary Refill, Normal Inspection, No Pedal Edema Neurologic/Psychiatric: Alert, Oriented x3 Skin: Normal Color, Warm/Dry Results Lab Laboratory Tests 08/25/21 11:40 Assessment/Plan Assessment/Plan (Tele-ICU Physician , consultation) Available chart/ vitals / labs / Images reviewed H&P is from ER notes Patient's information available about PMH, Shx, Fhx allergy reviewed in EMR. ROS as per chart and RN report Now in ICU, hemodynamically stable Video assessment done using teleICU camera, rest of exam as per RN Discussed with RN. Consultants: cards Hospital course: 08/25 - a fib rvr A/P A -fib , RVR ( with h/o SSS with PAF - rate control with Cardizem gtt ( was on cardizem PO ASSEMBLER CONVERTIBLE TOP -lytes WNL - check TSH - no ischemia on ECG, trend trops - AC ASSEMBLER CONVERTIBLE TOP - Eliquis - to cont - cards to follow- FRITZ/CKD - received IVFa nd lsix in ER - follow fluid status, UO CHF - elev BNP - due to afib RVR - received IVFa nd lsix in ER - cars consulted CAD - Echo of 11/20/19 showed LVEF 60-65%, mod dilatation of LA, (prob bicuspid ao valve with calcification, but w/o stenosis on echo of 2016) KRISTINA - treated with CPAP ? Puln HTN - mils , RVSP 40 mmHg diarrhea - as per note neg Covid 1 w ago - follow Hypothyroidism -check tsh Cough , dry , for last month - as per PCP - ? post viral bronchospasm Lines : periph Nixon: OG: Nutrition: Analgesia: Anxiety/ delirium VTE Prophylaxis: eliquis Stress Ulcer Prophylaxis: na Plans in collaboration with bedside consultants and IM MDs. Discussed with RN to reach out if any questions or concerns A total of 33 minutes of critical care time was devoted to this patient today, required to treat and/or prevent further deterioration of critical care condition ( as above ) . DALIA FOREMAN MD Aug 25, 2021 18:18
[2021-08-25] MEDS ORDERED: FUROSEMIDE 40 MG/4 ML INJ (LASIX) ONE (18:34)
[2021-08-25] MEDS ORDERED: LORazepam INJ 2 MG/ML (ATIVAN) VIAL ONE (18:38)
[2021-08-25] MEDS ORDERED: LORazepam INJ 2 MG/ML (ATIVAN) VIAL IVP NR (18:45)
[2021-08-25] MEDS ORDERED: FUROSEMIDE 40 MG/4 ML INJ (LASIX) IVP NR (18:45)
[2021-08-25] MEDS ORDERED: FLU QUAD HIGH DOSE 240 MCG/0.7 ML 2021-22 (FLUZONE) IM ONE (18:45)
[2021-08-25] MEDS ORDERED: DexMEDEtomidine 250 ML DRIP 250 ML IV ONE (19:02)
[2021-08-25] MEDS ORDERED: DexMEDEtomidine 250 ML DRIP 250 ML IV SCH (19:15)
[2021-08-26 04:27] LABS: BASOPHILS % (AUTO) 0 % (0-10); EOSINOPHILS % (AUTO) 0 % (0-10); HEMATOCRIT 35 % (40-54); LYMPHOCYTES # (AUTO) 1.1 10^3/uL (1.0-4.0); LYMPHOCYTES % (AUTO) 15 % (12-44); MEAN CORPUSCULAR HEMOGLOBIN 27 pg (25-34); MEAN CORPUSCULAR HGB CONC 31 g/dL (32-36); MEAN CORPUSCULAR VOLUME 87 fL (80-99); MEAN PLATELET VOLUME 11.2 fL (9.0-12.2); MONOCYTES # (AUTO) 0.6 10^3/uL (0.0-1.0); MONOCYTES % (AUTO) 9 % (0-12); NEUTROPHILS # (AUTO) 5.4 10^3/uL (1.8-7.8); NEUTROPHILS % (AUTO) 75 % (42-75); PLATELET COUNT 158 10^3/uL (130-400); WHITE BLOOD COUNT 7.2 10^3/uL (4.3-11.0)
[2021-08-26 05:01] LABS: ALBUMIN 3.4 GM/DL (3.2-4.5); BILIRUBIN,TOTAL 0.8 MG/DL (0.1-1.0); CALCIUM 8.3 MG/DL (8.5-10.1); CREATININE SERUM 1.91 MG/DL (0.60-1.30); MAGNESIUM 1.8 MG/DL (1.6-2.4); PHOSPHORUS 4.3 MG/DL (2.3-4.7); POTASSIUM 5.2 MMOL/L (3.6-5.0); TOTAL PROTEIN 5.6 GM/DL (6.4-8.2)
[2021-08-26] MEDS: dilTIAZem DRIP PRE-MIX 125 ML IV SCH (05:19)
--- NOTE | 2021-08-26 09:05 | History & Physical-Hospitalist ---
History of Present Illness HPI/Chief Complaint 65-year-old -[place] male with a past medical history of peripheral artery disease, coronary artery disease, A. fib, and hypothyroidism who presented to the emergency department due to shortness of breath for the past month. He was seen in the emergency department a couple of weeks ago and was advised to follow-up with cardiology at that time. He has seen his PCP in that timeframe and had a negative test last week. Despite this he continued to worsen and developed diarrhea. On arrival to the emergency department he was found to be in A. fib with RVR started on a Cardizem drip. He also had an elevated BNP of 11,000 up from 6000 in July. X-ray revealed pulmonary vascular congestion. He was admitted to the ICU on a Cardizem drip. His rate is much improved in the low 100s while I was at bedside. He reports feeling much better today though he states he had a rough night with shortness of breath and required BiPAP intermittently overnight. Source: patient Date Seen 08/26/21 Time Seen by a Provider: 08:57 Attending Physician Dona Moss MD PCP Nabeel Mustafa MD Referring Physician Date of Admission Aug 25, 2021 at 16:12 Home Medications & Allergies Home Medications Reviewed patient Home Medication Reconciliation performed by pharmacy medication reconciliations field service technician poultry and/or nursing. Patients Allergies have been reviewed. Allergies Allergies Coded Allergies No Known Drug Allergies (Unverified11/06/17) Past Nodkccj-Fuzuxe-Koqiux Hx Patient Social History Marrital Status: Tobacco Use?: No Smoking Status: Former Smoker Use of E-Cig and/or Vaping dev: No Substance use?: No Alcohol Use?: No Pt feels they are or have been: No Immunizations Up To Date Date of Influenza Vaccine: Aug 06, 2017 First/Initial COVID19 Vaccinat: JANUARY 09 Second COVID19 Vaccination Zachary: JANUARY 09 Tetanus Booster (TDap): Less Than 5 Years Current Status Advance Directives: No Communicates: Verbally Primary Language: Divehi Preferred Spoken Language: Divehi Is interpretation needed?: No Sensory deficits: Hearing impairment Implanted or Applied Medical D: Stents Past Medical History Atrial Fibrillation, Coronary Artery Disease, High Cholesterol, Hypertension, Peripheral Vascular Hypothyroidsim Family Medical History Reviewed Nursing Family Hx Heart Disease Review of Systems Constitutional: No chills, No fever Respiratory: orthopnea, short of breath Cardiovascular: No edema; Hx of Intervention, palpitations Gastrointestinal: No abdominal pain; diarrhea Genitourinary: no symptoms reported Musculoskeletal: no symptoms reported Skin: no symptoms reported Psychiatric/Neurological: No Symptoms Reported Physical Exam Physical Exam Vital Signs Vital Signs - First Documented 08/25/21 08/25/21 08/25/21 11:32 18:05 19:00 Temp 35.6 Pulse 104 Resp 20 B/P (MAP) 138/114 (122) Pulse Ox 100 O2 Delivery Room Air O2 Flow Rate 45.00 FiO2 21 Capillary Refill : Less Than 3 Seconds Height, Weight, BMI Height: 6'3.00" Weight: 232lbs. 0.0oz. 105.125752so; 32.00 BMI Method: General Appearance: No Apparent Distress, WD/WN HEENT: PERRL/EOMI, Moist Mucous Membranes; No Scleral Icterus (L), No Scleral Icterus (R) Neck: Normal Inspection, Supple Respiratory: Lungs Clear, No Respiratory Distress Cardiovascular: No Murmur, Irregularly Irregular, Tachycardia Gastrointestinal: Normal Bowel Sounds, Non Tender, Soft Extremity: Normal Capillary Refill, No Calf Tenderness, No Pedal Edema Neurologic/Psychiatric: Alert, Oriented x3, Normal Mood/Affect Results Results/Procedures Labs Laboratory Tests 08/25/21 11:40 08/26/21 04:04 Patient resulted labs reviewed. Imaging: Reviewed Imaging Report Imaging [facility], [place] NAME: MARBIN GOLDEN [facility] REC#: [id number] PT STATUS: REG ER : 1955 PHYSICIAN: GIO ARTEAGA MD ADMIT DATE: 08/25/21/ER FS Signed Date of Exam:08/25/21 CHEST 1 VIEW AP/PA ONLY INDICATION: Cough and shortness of breath. Frontal chest obtained at 12:29 p.m. and compared to 08/09/2021. FINDINGS: There is mild cardiomegaly and central vascular congestion. There is no focal infiltrate, pneumothorax, or pleural fluid. IMPRESSION: Cardiomegaly and mild central vascular prominence with no acute infiltrate, pneumothorax, or pleural fluid. Dictated by: Dictated on workstation # [id number] Dict: 08/25/21 1256 Trans: 08/25/21 1444 [id number] Interpreted by: RAF ROLDAN MD Electronically signed by: RAF ROLDAN MD 08/25/21 1444 Assessment/Plan Admission Diagnosis A-fib with RVR Admission Status: Inpatient Order (span 2 midnights) Reason for Inpatient Admission: see below Assessment and Plan A-fib with RVR decompensated heart failure Acute hypoxic respiratory failure Continue on cardizem gtt BP on the lower side so monitor closely Cardiology consulted, appreciate recs Eliquis Required BiPAP overnight due to pulm edema Responded to lasix and now on room air Echo ordered FRITZ Unsure if baseline CKD Exchange Underwriting Consultant improving with better rate control and diuresis last night Trend HTN HLD PAD Continue home meds as able Hypothyroidism Continey home synthroid DVT ppx: Eliquis Diagnosis/Problems Diagnosis/Problems (1) Atrial fibrillation with rapid ventricular response Status: Acute (2) Renal insufficiency Status: Acute (3) PAD (peripheral artery disease) (4) CAD (coronary artery disease) (5) Hyperlipidemia Copy Copies To 1: NABEEL MUSTAFA MD, KATELYN M MD Aug 26, 2021 09:05
--- NOTE | 2021-08-26 09:21 | Tele-ICU Progress Note ---
Subjective Date Seen by a Provider: Aug 26, 2021 Time Seen by a Provider: 08:50 Subjective/Events-last exam This virtual visit was conducted using real time audio/video. Thank you for asking us to see this patient for afib/RVR and FRITZ. HPC: Recent events: Sitting out, still afib/RVR. PE: Appears comfortable. HR 85-105 afib. O2 sat 92-96% on RA. HEENT: No obvious masses, adenopathy or JVD. Chest: clear to auscultation. CV: Irreg. S1 S2 No murmur or added sounds. Abd: Non-tender. Bowel sounds Y. : Unremarkable. Nixon N. TELEPHONE OPERATOR RECEPTIONIST/psychiatric: Alert and oriented, grossly intact. No obvious focal findings. Extremities: No edema. Capillary refill < 3 seconds. Skin: unremarkable. Results: Elevated BUN 34, Creat 1.9, K 5.2. Decreased HB 11. CXR w cardiomegaly. A/P: Af/RVR: on diltiazem IV. Available chart/ vitals / labs / images reviewed. Video assessment done using teleICU camera, rest of exam as per RN. Critical Care: critically ill patient. Resume Eliquis. Cont PRN Brent. Discussed with COSTA Downs. Asked RN to reach out to eICU if any questions or concerns later. Time spent with patient/coordination of care with other health professionals (mins): 20 From: Claudette Julian MD Sepsis Event Evaluation Height, Weight, BMI Height: 6'3.00" Weight: 232lbs. 0.0oz. 105.254286xd; 32.00 BMI Method: Exam Exam Patient acknowledged, consented, and participated in this virtual visit which wa s conducted using real time audio/video Vital Signs Date Time Temp Pulse Resp B/P (MAP) Pulse Ox O2 Delivery O2 Flow Rate FiO2 08/26/21 09:00 96 27 96/43 96 NIV Bilevel 25.00 08/26/21 08:45 86 21 88/72 88 08/26/21 08:30 22 94/74 91 08/26/21 08:15 98 18 81/63 91 08/26/21 08:00 95 Room Air 08/26/21 08:00 100 28 83/68 98 NIV Bilevel 25.00 08/26/21 08:00 36.1 08/26/21 07:45 106 11 89/66 90 08/26/21 07:30 93 27 103/81 94 08/26/21 07:21 92 Room Air 08/26/21 07:15 89 30 100/79 94 08/26/21 07:00 100 08/26/21 07:00 96 86/73 NIV Bilevel 25.00 08/26/21 06:45 97 91/59 98 08/26/21 06:30 86 98/75 95 08/26/21 06:15 93 13 93/73 94 08/26/21 06:02 124 18 122/76 08/26/21 06:00 122 22 93/73 99 NIV Bilevel 25.00 08/26/21 05:45 83 15 99/75 100 08/26/21 05:30 120 18 96/75 99 08/26/21 05:15 85 28 122/55 94 08/26/21 05:00 83 25 122/55 94 NIV Bilevel 25.00 08/26/21 04:45 81 21 94/71 92 08/26/21 04:30 86 28 88/72 89 08/26/21 04:15 104/69 08/26/21 04:00 93 29 104/69 96 NIV Bilevel 25.00 08/26/21 04:00 99 NIV Bilevel 25 08/26/21 04:00 35.9 08/26/21 03:45 85 28 88/75 96 08/26/21 03:30 80 26 86/72 97 08/26/21 03:15 70 24 108/52 92 08/26/21 03:00 85 27 108/52 94 NIV Bilevel 25.00 08/26/21 02:45 91/76 08/26/21 02:37 93 95 25.00 08/26/21 02:30 90/80 08/26/21 02:15 83/72 08/26/21 02:00 84 28 83/72 95 NIV Bilevel 25.00 08/26/21 01:45 74 26 99/68 96 08/26/21 01:30 80 29 91/66 88 08/26/21 01:22 97 NIV Bilevel 25.00 08/26/21 01:15 85 26 88/68 98 08/26/21 01:00 101 27 88/68 100 NIV Bilevel 30.00 08/26/21 01:00 80 08/26/21 00:45 80/67 08/26/21 00:30 86/67 08/26/21 00:15 75 27 80/67 100 08/26/21 00:00 92 NIV Bilevel 30 08/26/21 00:00 98 NIV Bilevel 30.00 08/26/21 00:00 83 26 80/67 100 NIV Bilevel 30.00 08/25/21 23:45 81 28 82/66 100 08/25/21 23:30 80 27 86/75 100 08/25/21 23:25 36.1 NIV Bilevel 45.00 08/25/21 23:15 75 26 83/61 100 08/25/21 23:00 80 83/61 100 NIV Bilevel 45.00 08/25/21 22:45 72 28 86/64 100 08/25/21 22:30 72 28 87/71 99 08/25/21 22:15 78 31 83/65 98 08/25/21 22:11 82 99 30.00 08/25/21 22:00 78 83/65 100 NIV Bilevel 45.00 08/25/21 21:45 69 24 82/61 100 08/25/21 21:30 68 27 79/67 78 08/25/21 21:15 80 28 86/72 100 08/25/21 21:00 95 86/72 99 NIV Bilevel 45.00 08/25/21 20:45 92 28 79/53 98 08/25/21 20:30 90 28 76/59 98 08/25/21 20:15 88 28 78/63 99 08/25/21 20:00 92 NIV Bilevel 45 08/25/21 20:00 128 78/63 87 NIV Bilevel 45.00 08/25/21 19:41 36.3 08/25/21 19:30 130 112/90 08/25/21 19:22 104 138/114 08/25/21 19:15 129 125/83 08/25/21 19:10 118 100 45.00 08/25/21 19:00 142 08/25/21 19:00 156 144/116 74 08/25/21 19:00 142 125/83 89 NIV Bilevel 45.00 08/25/21 18:05 35.6 104 100 21 08/25/21 18:00 112 142/125 95 Room Air 08/25/21 17:00 111 28 136/115 88 Room Air 08/25/21 16:36 100 Room Air 08/25/21 16:27 36.0 110 18 126/89 93 Room Air 08/25/21 15:24 35.6 122 20 108/82 96 Room Air 08/25/21 11:32 35.6 104 20 138/114 (122) 100 Room Air I & O 08/26/21 07:00 Intake Total 225 ml Output Total 700 ml Balance -475 ml Height & Weight Height: 6'3.00" Weight: 232lbs. 0.0oz. 105.097724ea; 32.00 BMI Method: General Appearance: No Apparent Distress, WD/WN HEENT: PERRL/EOMI, Moist Mucous Membranes; No Scleral Icterus (L), No Scleral Icterus (R) Neck: Normal Inspection, Supple Respiratory: Lungs Clear, No Respiratory Distress Cardiovascular: No Murmur, Irregularly Irregular, Tachycardia Capillary Refill: Less Than 3 Seconds Peripheral Pulses: 1+ Dorsalis Pedis (R), 1+ Left Dors-Pedis (L) Extremity: Normal Capillary Refill, No Calf Tenderness, No Pedal Edema Neurologic/Psychiatric: Alert, Oriented x3, Normal Mood/Affect Skin: Normal Color, Warm/Dry Results Lab Laboratory Tests 08/25/21 11:40 08/26/21 04:04 Assessment/Plan Assessment/Plan See free text. Critical Care: Critically Ill Patient CLAUDETTE JULIAN MD Aug 26, 2021 09:21
--- NOTE | 2021-08-26 09:30 | Progress Note - Cardiology ---
Cardiology SOAP Progress Note Subjective: Lying in bed States he feels fine and doesn't know why he's here, discussed with him reason for admission which he states "oh yeah, yeah, I know" No c/o CP or SOB No c/o palpitations Objective: I&O/Vital Signs 08/29/21 08/29/21 08/29/21 08/29/21 00:00 01:00 04:00 07:00 Temp 36.8 36.6 Pulse 72 111 101 101 Resp 18 18 B/P (MAP) 102/71 105/78 Pulse Ox 94 99 O2 Delivery Room Air Room Air 08/29/21 08/29/21 07:15 08:19 Temp 36.3 Pulse 115 Resp 20 B/P (MAP) 117/74 Pulse Ox 96 98 O2 Delivery Room Air Room Air 08/29/21 00:00 Intake Total 1300 ml Output Total 950 ml Balance 350 ml Weight (Pounds): 232 Weight (Ounces): 0.0 Weight (Calculated Kilograms): 105.669830 Constitutional: AAO x 3, well-developed, well-nourished, other (speech is slurred at times) Respiratory: No accessory muscle use; other (scattered rhonchi, exp wheezes, somewhat diminished air entry) Cardiovascular: irregularly irregular, S1 and S2, systolic murmur (soft KADEN at card base) Gastrointestional: No tender; soft; No guarding, No rebound; audible bowel sounds Extremities: No cyanosis, No significant edema Neurologic/Psychiatric: oriented x 3 (conversation in-appropriate to situation at times - re-orients easily), other (moves all limbs equally) Skin: No rash on exposed areas, No ulcerations on exposed areas Results/Procedures: Labs Laboratory Tests 08/29/21 05:10: White Blood Count 8.2, Red Blood Count 5.34, Hemoglobin 14.8, Hematocrit 45, Mean Corpuscular Volume 85, Mean Corpuscular Hemoglobin 28, Mean Corpuscular Hemoglobin Concent 33, Red Cell Distribution Width 14.7H, Platelet Count 196, Mean Platelet Volume 11.2, Immature Granulocyte % (Auto) 0, Neutrophils (%) (Auto) 71, Lymphocytes (%) (Auto) 13, Monocytes (%) (Auto) 12, Eosinophils (%) (Auto) 3, Basophils (%) (Auto) 1, Neutrophils # (Auto) 5.8, Lymphocytes # (Auto) 1.0, Monocytes # (Auto) 1.0, Eosinophils # (Auto) 0.3, Basophils # (Auto) 0.0, Immature Granulocyte # (Auto) 0.0 08/29/21 05:40: Sodium Level 139, Potassium Level 4.0, Chloride Level 104, Carbon Dioxide Level 20L, Anion Gap 15H, Blood Urea Nitrogen 29H, Creatinine 1.62H, Estimat Glomerular Filtration Rate 52, BUN/Creatinine Ratio 18, Glucose Level 170H, Calcium Level 9.0, Corrected Calcium 9.2, Phosphorus Level 3.9, Magnesium Level 1.8, Total Bilirubin 0.7, Aspartate Amino Transf (AST/SGOT) 20, Alanine Aminotransferase (ALT/SGPT) 30, Alkaline Phosphatase 44, Total Protein 6.8, Albumin 3.7 Microbiology 08/25/21 MRSA Screen - Final, Complete MRSA not isolated A/P: Assessment: Intermittent confusion - undetermined etiology Acute renal failure likely due to intravascular volume depletion Probable lower resp tract infection, acute SSS with PAF - rate not well controlled - alternating with sinus asa (competing with junc rhythm). - PAFlutter documented on an ECG of 09/05/17 at [facility]. S Asa (with junctional competition) documented on an ECG of 09/07/17 Leg claudication and PAD: -Severe PAD diagnosed on an abd ao CTA on 09/05/17 at [facility]: complete occ of R SFA, single vessel runoff in thee R calf and in the L calf. - Has had PCI to the R leg by Dr Matta at [place], [place] on 09/10/17. Has followed with Dr Bernard at [facility]. - Has undergone further PAD intervention on 04/01/21 on the R leg with and is awaiting intervention on the L leg with Dr Bernard Exertional shortness of breath, chronic, of undetermined etiology Carotid u/s of 11/14/18 showed mild bilat carotid dz CAD -Abnormal stress test on 09/25/17 showed a small amount of basal inf ischemia and LVEF 47%. - Subsequent cardiac cath of Nov 06, 2017 showed angiographically mild CAD. LVEF 55-60%. Normal LVEDP. Mild calcification of the aortic arch. No significant jessee ral regurg. - Repeat MPI of 12/02/19 shows the small amount of basal inf-lat ischemia (essentially the same finding as in Sep 2017) that has already been investigated with cath described above Echo of 11/20/19 showed LVEF 60-65%, mod dilatation of LA, RVSP 40 mmHg (prob bicuspid ao valve with calcification, but w/o stenosis on echo of 2016) KRISTINA - treated with CPAP Tobacco use, chronic, quit on 09/10/17 Impaired fasting glucose Hypothyroidism, treated with thyroid replacement by his pcp, Dr Martinez Fam h/o CAD (brothers at age younger than 60) CTA of 09/05/17 also showed bilat inguinal hernias containing only fat, bilat hydrocele. prostate enlargement and urinary bladder wall thickening, umbilical hernia containing only fat BP difference of approx 20 mmHg from right arm to left arm on an office visit in 2018. CT angio of 05/09/18 was reported to be a poor study, but did not report any significant stenosis. No significant bp diff today Plan: * Hospitalist service managing ac renal failure and suspected resp tract infection * iv fluids * Monitor labs * No distinct evidence of decomp CHF. BNP elevation likely due to ac renal failure * Echo today * Intermittent confusion - d/w Dr. Moss - plan for MRI today LAYLA HENNING Aug 26, 2021 09:30
[2021-08-26 09:33] VITALS: BP 96/43
[2021-08-26] MEDS: APIXABAN 5 MG (ELIQUIS) TABLET PO SCH ×2 (09:43→20:14)
[2021-08-26] MEDS ORDERED: ATOR20TA66 PO (10:23)
[2021-08-26] MEDS ORDERED: ACET-2267 PO (10:23)
[2021-08-26] MEDS ORDERED: CARV3.122 PO (10:23)
[2021-08-26] MEDS ORDERED: LEVO150T96 PO (10:23)
[2021-08-26] MEDS ORDERED: DILT-27 PO (10:23)
[2021-08-26] MEDS ORDERED: CLOP75TA28 PO (10:23)
[2021-08-26] MEDS ORDERED: FUROSEMIDE 40 MG/4 ML INJ (LASIX) IVP ONE (10:30)
[2021-08-26] MEDS ORDERED: RT-ALBUTEROL/IPRATROPIUM 3 ML (DUONEB) VIAL INH PRN (12:00)
--- NOTE | 2021-08-26 14:07 | Progress Note - Cardiology ---
Cardiology SOAP Progress Note Subjective: Shortness of breath somewhat better No cp or palp or syncope Gen weakness and malaise present No n/v/d Objective: I&O/Vital Signs 08/26/21 08/26/21 08/26/21 08/26/21 02:15 02:30 02:37 02:45 Pulse 93 B/P (MAP) 83/72 90/80 91/76 Pulse Ox 95 O2 Flow Rate 25.00 08/26/21 08/26/21 08/26/21 08/26/21 03:00 03:15 03:30 03:45 Pulse 85 70 80 85 Resp 27 24 26 28 B/P (MAP) 108/52 108/52 86/72 88/75 Pulse Ox 94 92 97 96 O2 Delivery NIV Bilevel O2 Flow Rate 25.00 08/26/21 08/26/21 08/26/21 08/26/21 04:00 04:00 04:00 04:15 Temp 35.9 Pulse 93 Resp 29 B/P (MAP) 104/69 104/69 Pulse Ox 99 96 O2 Delivery NIV Bilevel NIV Bilevel O2 Flow Rate 25.00 FiO2 25 08/26/21 08/26/21 08/26/21 08/26/21 04:30 04:45 05:00 05:15 Pulse 86 81 83 85 Resp 28 21 25 28 B/P (MAP) 88/72 94/71 122/55 122/55 Pulse Ox 89 92 94 94 O2 Delivery NIV Bilevel O2 Flow Rate 25.00 08/26/21 08/26/21 08/26/21 08/26/21 05:30 05:45 06:00 06:02 Pulse 120 83 122 124 Resp 18 15 22 18 B/P (MAP) 96/75 99/75 93/73 122/76 Pulse Ox 99 100 99 O2 Delivery NIV Bilevel O2 Flow Rate 25.00 08/26/21 08/26/21 08/26/21 08/26/21 06:15 06:30 06:45 07:00 Pulse 93 86 97 96 Resp 13 B/P (MAP) 93/73 98/75 91/59 86/73 Pulse Ox 94 95 98 O2 Delivery NIV Bilevel O2 Flow Rate 25.00 08/26/21 08/26/21 08/26/21 08/26/21 07:00 07:15 07:21 07:30 Pulse 100 89 93 Resp 30 27 B/P (MAP) 100/79 103/81 Pulse Ox 94 92 94 O2 Delivery Room Air 08/26/21 08/26/21 08/26/21 08/26/21 07:45 08:00 08:00 08:00 Temp 36.1 Pulse 106 100 Resp 11 28 B/P (MAP) 89/66 83/68 Pulse Ox 90 98 95 O2 Delivery NIV Bilevel Room Air O2 Flow Rate 25.00 08/26/21 08/26/21 08/26/21 08/26/21 08:15 08:30 08:45 09:00 Pulse 98 86 96 Resp 18 22 21 27 B/P (MAP) 81/63 94/74 88/72 96/43 Pulse Ox 91 91 88 96 O2 Delivery NIV Bilevel O2 Flow Rate 25.00 08/26/21 08/26/21 08/26/21 08/26/21 09:15 09:30 09:33 09:45 Temp 36.1 Pulse 114 91 99 87 Resp 16 25 B/P (MAP) 87/80 104/75 105/59 Pulse Ox 92 97 92 88 FiO2 21 08/26/21 08/26/21 08/26/21 08/26/21 10:00 10:15 10:30 10:45 Pulse 87 101 101 Resp 13 15 10 B/P (MAP) 95/83 98/64 93/73 89/82 Pulse Ox 91 93 96 O2 Delivery NIV Bilevel O2 Flow Rate 25.00 08/26/21 08/26/21 08/26/21 08/26/21 11:00 11:15 11:20 11:30 Pulse 84 126 92 Resp 8 B/P (MAP) 108/99 98/82 Pulse Ox 99 94 96 93 O2 Delivery Room Air Room Air 08/26/21 08/26/21 08/26/21 08/26/21 11:45 12:00 12:00 12:15 Temp 36.5 Pulse 115 112 Resp 22 B/P (MAP) 101/68 118/67 107/82 Pulse Ox 90 90 O2 Delivery Room Air 08/26/21 08/26/21 08/26/21 08/26/21 12:30 12:37 12:45 13:00 Pulse 91 121 112 97 Resp 25 35 27 B/P (MAP) 110/82 115/91 118/72 Pulse Ox 94 84 90 O2 Delivery Room Air 08/26/21 00:00 Intake Total 100 ml Balance 100 ml Weight (Pounds): 232 Weight (Ounces): 0.0 Weight (Calculated Kilograms): 105.059650 Constitutional: well-developed, well-nourished, other (speech is slurred at times, appears mildly confused at times) Respiratory: No accessory muscle use; other (scattered rhonchi, exp wheezes, somewhat diminished air entry) Cardiovascular: irregularly irregular, S1 and S2, systolic murmur (soft KADEN at card base) Gastrointestional: No tender; soft; No guarding, No rebound; audible bowel sounds Extremities: No cyanosis, No significant edema Neurologic/Psychiatric: oriented x 3 (conversation in-appropriate to situation at times - re-orients easily), other (moves all limbs equally) Skin: No rash on exposed areas, No ulcerations on exposed areas Results/Procedures: Labs Laboratory Tests 08/26/21 04:04: White Blood Count 7.2, Red Blood Count 4.03L, Hemoglobin 11.0L, Hematocrit 35L, Mean Corpuscular Volume 87, Mean Corpuscular Hemoglobin 27, Mean Corpuscular Hemoglobin Concent 31L, Red Cell Distribution Width 14.9H, Platelet Count 158, Mean Platelet Volume 11.2, Immature Granulocyte % (Auto) 0, Neutrophils (%) (Auto) 75, Lymphocytes (%) (Auto) 15, Monocytes (%) (Auto) 9, Eosinophils (%) (Auto) 0, Basophils (%) (Auto) 0, Neutrophils # (Auto) 5.4, Lymphocytes # (Auto) 1.1, Monocytes # (Auto) 0.6, Eosinophils # (Auto) 0.0, Basophils # (Auto) 0.0, Immature Granulocyte # (Auto) 0.0, Sodium Level 140, Potassium Level 5.2H, Chloride Level 110H, Carbon Dioxide Level 18L, Anion Gap 12, Blood Urea Nitrogen 34H, Creatinine 1.91H, Estimat Glomerular Filtration Rate 43, BUN/Creatinine Ratio 18, Glucose Level 122H, Calcium Level 8.3L, Corrected Calcium 8.8, Phosphorus Level 4.3, Magnesium Level 1.8, Total Bilirubin 0.8, Aspartate Amino Transf (AST/SGOT) 16, Alanine Aminotransferase (ALT/SGPT) 23, Alkaline Phosphatase 35L, Total Protein 5.6L, Albumin 3.4, Thyroid Stimulating Hormone (TSH) 0.20L Microbiology 08/25/21 MRSA Screen - Final, Complete MRSA not isolated Laboratory Tests 08/25/21 11:40 08/26/21 04:04 A/P: Assessment: Acute systolic CHF - Echo of 08/25/21: LVEF 25-30%, moderate diffuse hypokinesis, mod dilatation of LA and RA, mod to severe MR, mod TR, PASP 35 - 40 mmHg Ac renal failure, likely related to CHF / low CO Intermittent confusion - undetermined etiology Probable lower resp tract infection, acute SSS with PAF - rate not well controlled - alternating with sinus asa (competing with Angel Alertsc rhythm). - PAFlutter documented on an ECG of 09/05/17 at [facility]. Asa (with junctional competition) documented on an ECG of 09/07/17 Leg claudication and PAD: -Severe PAD diagnosed on an abd ao CTA on 09/05/17 at [facility]: complete occ of R SFA, single vessel runoff in thee R calf and in the L calf. - Has had PCI to the R leg by Dr Matta at [place], [place] on 09/10/17. Has followed with Dr Bernard at [facility]. - Has undergone further PAD intervention on 04/01/21 on the R leg with and is awaiting intervention on the L leg with Dr Bernard Exertional shortness of breath, chronic, of undetermined etiology Carotid u/s of 11/14/18 showed mild bilat carotid dz CAD -Abnormal stress test on 09/25/17 showed a small amount of basal inf ischemia and LVEF 47%. - Subsequent cardiac cath of Nov 06, 2017 showed angiographically mild CAD. LVEF 55-60%. Normal LVEDP. Mild calcification of the aortic arch. No significant mitral regurg. - Repeat MPI of 12/02/19 shows the small amount of basal inf-lat ischemia (essentially the same finding as in Sep 2017) that has already been investigated with cath described above Echo of 11/20/19 showed LVEF 60-65%, mod dilatation of LA, RVSP 40 mmHg (prob bicuspid ao valve with calcification, but w/o stenosis on echo of 2016) KRISTINA - treated with CPAP Tobacco use, chronic, quit on 09/10/17 Impaired fasting glucose Hypothyroidism, treated with thyroid replacement by his pcp, Dr Juan eHller h/o CAD (brothers at age younger than 60) CTA of 09/05/17 also showed bilat inguinal hernias containing only fat, bilat hydrocele. prostate enlargement and urinary bladder wall thickening, umbilical hernia containing only fat BP difference of approx 20 mmHg from right arm to left arm on an office visit in 2018. CT angio of 05/09/18 was reported to be a poor study, but did not report any significant stenosis. No significant bp diff today Plan: * D/c iv fluids * Initiate diuretics * Add bb if bp tolerates * Not suitable for BRANDON-inhib or ARB due to renal failure and hyperkalemia * Intermittent confusion - d/w Dr. Moss - plan for MRI today * Monitor labs YULIYA CAMACHO MD FACP [facility] Aug 26, 2021 14:07
[2021-08-26] MEDS: RT-ALBUTEROL/IPRATROPIUM 3 ML (DUONEB) VIAL INH SCH ×2 (15:17→18:45)
[2021-08-27] MEDS: dilTIAZem DRIP PRE-MIX 125 ML IV SCH (04:34)
[2021-08-27 04:59] LABS: BASOPHILS % (AUTO) 0 % (0-10); EOSINOPHILS # (AUTO) 0.1 10^3/uL (0.0-0.3); EOSINOPHILS % (AUTO) 1 % (0-10); HEMATOCRIT 37 % (40-54); HEMOGLOBIN 11.9 g/dL (13.3-17.7); LYMPHOCYTES # (AUTO) 1.1 10^3/uL (1.0-4.0); LYMPHOCYTES % (AUTO) 15 % (12-44); MEAN CORPUSCULAR HEMOGLOBIN 27 pg (25-34); MEAN CORPUSCULAR HGB CONC 32 g/dL (32-36); MEAN CORPUSCULAR VOLUME 85 fL (80-99); MEAN PLATELET VOLUME 10.9 fL (9.0-12.2); MONOCYTES # (AUTO) 0.7 10^3/uL (0.0-1.0); MONOCYTES % (AUTO) 10 % (0-12); NEUTROPHILS # (AUTO) 5.3 10^3/uL (1.8-7.8); NEUTROPHILS % (AUTO) 73 % (42-75); PLATELET COUNT 169 10^3/uL (130-400); WHITE BLOOD COUNT 7.2 10^3/uL (4.3-11.0)
[2021-08-27 05:23] LABS: ALBUMIN 3.5 GM/DL (3.2-4.5); BILIRUBIN,TOTAL 0.7 MG/DL (0.1-1.0); CALCIUM 8.6 MG/DL (8.5-10.1); CREATININE SERUM 1.64 MG/DL (0.60-1.30); MAGNESIUM 1.7 MG/DL (1.6-2.4); PHOSPHORUS 3.9 MG/DL (2.3-4.7); TOTAL PROTEIN 5.9 GM/DL (6.4-8.2)
[2021-08-27] MEDS: RT-ALBUTEROL/IPRATROPIUM 3 ML (DUONEB) VIAL INH SCH ×4 (07:33→20:01)
[2021-08-27] MEDS: APIXABAN 5 MG (ELIQUIS) TABLET PO SCH ×2 (08:23→21:31)
[2021-08-27] MEDS: FUROSEMIDE 40 MG/4 ML INJ (LASIX) IVP SCH (08:23)
--- NOTE | 2021-08-27 09:43 | Progress Note - Hospitalist ---
Subjective HPI/CC On Admission Date Seen by Provider: Aug 27, 2021 Time Seen by Provider: 09:39 65-year-old -Slov[place] male with a past medical history of peripheral artery disease, coronary artery disease, A. fib, and hypothyroidism who presented to the emergency department due to shortness of breath for the past month. He was seen in the emergency department a couple of weeks ago and was advised to follow-up with cardiology at that time. He has seen his PCP in that timeframe and had a negative test last week. Despite this he continued to worsen and developed diarrhea. On arrival to the emergency department he was f ound to be in A. fib with RVR started on a Cardizem drip. He also had an elevated BNP of 11,000 up from 6000 in July. X-ray revealed pulmonary vascular congestion. He was admitted to the ICU on a Cardizem drip. His rate is much improved in the low 100s while I was at bedside. He reports feeling much better today though he states he had a rough night with shortness of breath and required BiPAP intermittently overnight. Subjective/Events-last exam Pt repors feeling better today and would like to DC. Discussed how he is still on cardizem and not ready yet and given his echo results from yesterday he needs further work up. He expresses understanding and is agreeable with plan. Objective Exam Vital Signs Vital Signs Date Time Temp Pulse Resp B/P (MAP) Pulse Ox O2 Delivery O2 Flow Rate FiO2 08/27/21 09:00 109 25 119/97 96 Room Air 08/27/21 07:38 36.0 08/26/21 10:00 25.00 08/26/21 09:33 21 Capillary Refill : Less Than 3 Seconds General Appearance: No Apparent Distress, WD/WN Respiratory: Lungs Clear, No Respiratory Distress Cardiovascular: No Murmur, Irregularly Irregular, Tachycardia Gastrointestinal: Normal Bowel Sounds, Non Tender, Soft Neurologic/Psychiatric: Alert, Oriented x3 Results/Procedures Lab Laboratory Tests 08/27/21 04:27 Patient resulted labs reviewed. 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
--- NOTE | 2021-08-27 10:15 | Tele-ICU Progress Note ---
Subjective Date Seen by a Provider: Aug 27, 2021 Time Seen by a Provider: 10:15 Subjective/Events-last exam Today he is doing much better. No chest pain or shortness of breath. He is on room air. Sitting in the bedside chair. Heart rate is still about 110 220. On a Cardizem drip. He is supposed to be started on oral Cardizem today and to wean off Cardizem drip. Review of Systems ROS PER ATTENDING PHYSICIAN Sepsis Event Evaluation Height, Weight, BMI Height: 6'3.00" Weight: 232lbs. 0.0oz. 105.991336rm; 32.00 BMI Method: Exam Exam Patient acknowledged, consented, and participated in this virtual visit which w as conducted using real time audio/video Vital Signs Date Time Temp Pulse Resp B/P (MAP) Pulse Ox O2 Delivery O2 Flow Rate FiO2 08/27/21 10:02 96 Room Air 08/27/21 10:00 117 22 106/92 93 Room Air 08/27/21 09:00 109 25 119/97 96 Room Air 08/27/21 08:00 104 12 104/93 95 Room Air 08/27/21 08:00 97 Room Air 08/27/21 07:45 105 9 120/72 97 08/27/21 07:38 36.0 08/27/21 07:35 96 08/27/21 07:30 17 107/83 98 08/27/21 07:15 103 21 98/85 95 08/27/21 07:00 106 08/27/21 07:00 120 21 111/92 96 Room Air 08/27/21 04:34 36.6 08/27/21 04:00 115 17 123/93 93 Room Air 08/27/21 04:00 92 Room Air 08/27/21 03:00 101 14 105/85 95 Room Air 08/27/21 02:00 110 12 109/96 94 Room Air 08/27/21 01:00 101 18 113/86 94 Room Air 08/27/21 01:00 100 08/27/21 00:00 92 Room Air 08/27/21 00:00 36.6 08/27/21 00:00 113 17 110/101 96 Room Air 08/26/21 23:00 100 16 137/43 99 Room Air 08/26/21 22:00 120 16 156/45 94 Room Air 08/26/21 21:00 129 25 104/91 94 Room Air 08/26/21 20:01 37.1 137 20 102/100 91 Room Air 08/26/21 20:00 92 Room Air 08/26/21 19:00 114 08/26/21 19:00 128 23 107/79 93 Room Air 08/26/21 18:45 94 Room Air 08/26/21 18:30 110 18 118/93 95 Room Air 08/26/21 18:15 133 18 104/89 95 Room Air 08/26/21 18:00 121 28 120/89 90 Room Air 08/26/21 17:45 146 19 111/56 100 Room Air 08/26/21 17:30 129 18 162/57 93 Room Air 08/26/21 17:15 117 16 100/90 96 Room Air 08/26/21 17:00 129 24 124/93 90 Room Air 08/26/21 16:45 113 34 96/72 90 Room Air 08/26/21 16:30 103 18 103/67 91 Room Air 08/26/21 16:15 113 25 117/50 95 Room Air 08/26/21 16:09 98 17 92/76 90 Room Air 08/26/21 15:45 110 16 108/80 93 Room Air 08/26/21 15:45 122 18 108/80 90 08/26/21 15:30 107 28 99/91 93 Room Air 08/26/21 15:29 96 Room Air 08/26/21 15:28 36.4 08/26/21 15:17 92 Room Air 08/26/21 15:15 112 24 101/82 90 Room Air 08/26/21 15:00 105 19 98/85 92 Room Air 08/26/21 14:45 106 15 120/75 85 08/26/21 14:30 116 15 94/79 90 08/26/21 14:15 98 18 99/80 89 08/26/21 14:00 101 28 94/70 69 Room Air 08/26/21 13:45 112 19 108/83 08/26/21 13:30 90 26 106/48 08/26/21 13:15 103 38 103/90 90 08/26/21 13:00 97 27 118/72 90 Room Air 08/26/21 12:45 112 35 115/91 84 08/26/21 12:37 121 08/26/21 12:30 91 25 110/82 94 08/26/21 12:15 107/82 08/26/21 12:00 36.5 08/26/21 12:00 112 118/67 90 Room Air 08/26/21 11:45 115 22 101/68 90 08/26/21 11:30 92 98/82 93 08/26/21 11:20 96 Room Air 08/26/21 11:15 126 94 Room Air 08/26/21 11:00 84 8 108/99 99 08/26/21 10:45 101 10 89/82 96 08/26/21 10:30 101 15 93/73 93 08/26/21 10:15 98/64 I & O 08/27/21 07:00 Intake Total 1700 ml Output Total 3675 ml Balance -1975 ml Height & Weight Height: 6'3.00" Weight: 232lbs. 0.0oz. 105.951734av; 32.00 BMI Method: General Appearance: No Apparent Distress, WD/WN HEENT: PERRL/EOMI, Moist Mucous Membranes; No Scleral Icterus (L), No Scleral Icterus (R) Neck: Normal Inspection, Supple Respiratory: Lungs Clear, No Respiratory Distress Cardiovascular: No Murmur, Irregularly Irregular, Tachycardia Capillary Refill: Less Than 3 Seconds Peripheral Pulses: 1+ Dorsalis Pedis (R), 1+ Left Dors-Pedis (L) Extremity: Normal Capillary Refill, No Calf Tenderness, No Pedal Edema Neurologic/Psychiatric: Alert, Oriented x3 Skin: Normal Color, Warm/Dry Other comments PE PER ATTENDING PHYSICIAN Results Lab Laboratory Tests 08/25/21 11:40 08/26/21 04:04 08/27/21 04:27 Radiology CXR REVIEWED Assessment/Plan Assessment/Plan Patient is assessed with a video visit, available electronic medical records, laboratory reviewed and imaging. Discussed with the patient and the RN. 1. Atrial fibrillation with rapid ventricular rate being controlled with Cardizem drip 2. Acute congestive heart failure slowly improving 3. Acute and chronic kidney disease. Recommendations 1. Agree with the oral Cardizem and if necessary use digoxin per cardiology 2. Cautious diuretic therapy 3. Once he is stable on oral Cardizem he may be transferred out to telemetry unit. 4. Anticoagulant therapy for cardiology service. Critical Care: Critically Ill Patient Time spent with patient (mins): 25 JOSÉ LUIS ESCALANTE MD Aug 27, 2021 10:15
[2021-08-27] MEDS ORDERED: DIGOXIN 0.25 MG/ML (LANOXIN) 2 ML AMP IV ONE (13:30)
[2021-08-27] MEDS ORDERED: DIGOXIN 0.25 MG/ML (LANOXIN) 2 ML AMP ONE (13:30)
--- NOTE | 2021-08-27 14:39 | Progress Note - Cardiology ---
Cardiology SOAP Progress Note Subjective: Gen malaise and weakness present Shortness of breath with activity No palp or syncope No cp Objective: I&O/Vital Signs 08/27/21 08/27/21 08/27/21 08/27/21 03:00 04:00 04:00 04:34 Temp 36.6 Pulse 101 115 Resp 14 17 B/P (MAP) 105/85 123/93 Pulse Ox 95 92 93 O2 Delivery Room Air Room Air Room Air 08/27/21 08/27/21 08/27/21 08/27/21 07:00 07:00 07:15 07:30 Pulse 120 106 103 Resp 21 17 B/P (MAP) 111/92 98/85 107/83 Pulse Ox 96 95 98 O2 Delivery Room Air 08/27/21 08/27/21 08/27/21 08/27/21 07:35 07:38 07:45 08:00 Temp 36.0 Pulse 105 Resp 9 B/P (MAP) 120/72 Pulse Ox 96 97 97 O2 Delivery Room Air 08/27/21 08/27/21 08/27/21 08/27/21 08:00 09:00 10:00 10:02 Pulse 104 109 117 Resp 12 25 22 B/P (MAP) 104/93 119/97 106/92 Pulse Ox 95 96 93 96 O2 Delivery Room Air Room Air Room Air Room Air 08/27/21 08/27/21 08/27/21 08/27/21 11:00 11:39 12:00 12:00 Temp 36.3 Pulse 134 137 Resp 16 18 B/P (MAP) 106/61 111/98 Pulse Ox 94 95 92 O2 Delivery Room Air Room Air Room Air 08/27/21 08/27/21 08/27/21 12:52 13:00 14:00 Pulse 138 114 126 Resp 25 18 B/P (MAP) 95/77 107/77 Pulse Ox 98 91 O2 Delivery Room Air Room Air 08/27/21 00:00 Intake Total 1250 ml Output Total 3050 ml Balance -1800 ml Weight (Pounds): 232 Weight (Ounces): 0.0 Weight (Calculated Kilograms): 105.724997 Constitutional: well-developed, well-nourished, other (speech is slurred at times, appears mildly confused at times) Respiratory: No accessory muscle use; other (scattered rhonchi, exp wheezes, somewhat diminished air entry) Cardiovascular: irregularly irregular, S1 and S2, systolic murmur (soft KADEN at card base) Gastrointestional: No tender; soft; No guarding, No rebound; audible bowel sounds Extremities: No cyanosis, No significant edema Neurologic/Psychiatric: oriented x 3 (conversation in-appropriate to situation at times - re-orients easily), other (moves all limbs equally) Skin: No rash on exposed areas, No ulcerations on exposed areas Results/Procedures: Labs Laboratory Tests 08/27/21 04:27: White Blood Count 7.2, Red Blood Count 4.35, Hemoglobin 11.9L, Hematocrit 37L, Mean Corpuscular Volume 85, Mean Corpuscular Hemoglobin 27, Mean Corpuscular Hem oglobin Concent 32, Red Cell Distribution Width 14.9H, Platelet Count 169, Mean Platelet Volume 10.9, Immature Granulocyte % (Auto) 0, Neutrophils (%) (Auto) 73, Lymphocytes (%) (Auto) 15, Monocytes (%) (Auto) 10, Eosinophils (%) (Auto) 1, Basophils (%) (Auto) 0, Neutrophils # (Auto) 5.3, Lymphocytes # (Auto) 1.1, Monocytes # (Auto) 0.7, Eosinophils # (Auto) 0.1, Basophils # (Auto) 0.0, Immature Granulocyte # (Auto) 0.0, Sodium Level 138, Potassium Level 4.0, Chloride Level 107, Carbon Dioxide Level 19L, Anion Gap 12, Blood Urea Nitrogen 36H, Creatinine 1.64H, Estimat Glomerular Filtration Rate 51, BUN/Creatinine Ratio 22, Glucose Level 124H, Calcium Level 8.6, Corrected Calcium 9.0, Ph osphorus Level 3.9, Magnesium Level 1.7, Total Bilirubin 0.7, Aspartate Amino Transf (AST/SGOT) 14, Alanine Aminotransferase (ALT/SGPT) 24, Alkaline Phosphatase 43, Total Protein 5.9L, Albumin 3.5 Microbiology 08/25/21 MRSA Screen - Final, Complete MRSA not isolated Laboratory Tests 08/26/21 04:04 08/27/21 04:27 A/P: Assessment: Acute systolic CHF - Echo of 08/25/21: LVEF 25-30%, moderate diffuse hypokinesis, mod dilatation of LA and RA, mod to severe MR, mod TR, PASP 35 - 40 mmHg Ac renal failure, likely related to CHF / low CO Intermittent confusion - undetermined etiology Probable lower resp tract infection, acute SSS with PAF - rate not well controlled - alternating with sinus asa (competing with junc rhythm). - PAFlutter documented on an ECG of 09/05/17 at [facility]. S Asa (with junctional competition) documented on an ECG of 09/07/17 Leg claudication and PAD: -Severe PAD diagnosed on an abd ao CTA on 09/05/17 at [facility]: complete occ of R SFA, single vessel runoff in thee R calf and in the L calf. - Has had PCI to the R leg by Dr Matta at [place], [place] on 09/10/17. Has followed with Dr Bernard at [facility]. - Has undergone further PAD intervention on 04/01/21 on the R leg with and is awaiting intervention on the L leg with Dr Bernard Exertional shortness of breath, chronic, of undetermined etiology Carotid u/s of 11/14/18 showed mild bilat carotid dz CAD -Abnormal stress test on 09/25/17 showed a small amount of basal inf ischemia and LVEF 47%. - Subsequent cardiac cath of Nov 06, 2017 showed angiographically mild CAD. LVEF 55-60%. Normal LVEDP. Mild calcification of the aortic arch. No significant mitral regurg. - Repeat MPI of 12/02/19 shows the small amount of basal inf-lat ischemia (essentially the same finding as in Sep 2017) that has already been investigated with cath described above Echo of 11/20/19 showed LVEF 60-65%, mod dilatation of LA, RVSP 40 mmHg (prob bicuspid ao valve with calcification, but w/o stenosis on echo of 2016) KRISTINA - treated with CPAP Tobacco use, chronic, quit on 09/10/17 Impaired fasting glucose Hypothyroidism, treated with thyroid replacement by his pcp, Dr Juan Heller h/o CAD (brothers at age younger than 60) CTA of 09/05/17 also showed bilat inguinal hernias containing only fat, bilat hydrocele. prostate enlargement and urinary bladder wall thickening, umbilical hernia containing only fat BP difference of approx 20 mmHg from right arm to left arm on an office visit in 2018. CT angio of 7/19/18 was reported to be a poor study, but did not report any significant stenosis. No significant bp diff today Plan: * Complex management * Continue diuretics * Change diltiazem to oral * Continue bb as tolerated * Add dig * Not suitable for BRANDON-inhib or ARB due to renal failure and hyperkalemia * Monitor labs * I discussed his case with Dr Moss this am YULIYA CAMACHO MD [facility] Aug 27, 2021 14:39
[2021-08-27] MEDS: ALPRAZolam 0.25 MG (XANAX) TAB PO PRN (15:22)
[2021-08-27] MEDS: ACETAMINOPHEN 500 MG TAB (TYLENOL) PO PRN (15:22)
[2021-08-27] MEDS ORDERED: meTOproloL SUCCINATE 50 MG (TOPROL XL) TAB PO SCH (17:15)
[2021-08-27] MEDS ORDERED: meTOproloL SUCCINATE 50 MG (TOPROL XL) TAB PO ONE (17:23)
[2021-08-28 05:36] LABS: BASOPHILS % (AUTO) 0 % (0-10); EOSINOPHILS # (AUTO) 0.1 10^3/uL (0.0-0.3); EOSINOPHILS % (AUTO) 1 % (0-10); HEMATOCRIT 44 % (40-54); HEMOGLOBIN 14.2 g/dL (13.3-17.7); LYMPHOCYTES % (AUTO) 11 % (12-44); MEAN CORPUSCULAR HEMOGLOBIN 27 pg (25-34); MEAN CORPUSCULAR HGB CONC 32 g/dL (32-36); MEAN CORPUSCULAR VOLUME 84 fL (80-99); MEAN PLATELET VOLUME 11.1 fL (9.0-12.2); MONOCYTES # (AUTO) 1.1 10^3/uL (0.0-1.0); MONOCYTES % (AUTO) 13 % (0-12); NEUTROPHILS # (AUTO) 6.3 10^3/uL (1.8-7.8); NEUTROPHILS % (AUTO) 74 % (42-75); PLATELET COUNT 190 10^3/uL (130-400); WHITE BLOOD COUNT 8.5 10^3/uL (4.3-11.0)
[2021-08-28 06:03] LABS: ALBUMIN 3.9 GM/DL (3.2-4.5); BILIRUBIN,TOTAL 0.9 MG/DL (0.1-1.0); CALCIUM 9.2 MG/DL (8.5-10.1); CREATININE SERUM 1.59 MG/DL (0.60-1.30); MAGNESIUM 1.8 MG/DL (1.6-2.4); PHOSPHORUS 3.9 MG/DL (2.3-4.7); TOTAL PROTEIN 6.8 GM/DL (6.4-8.2)
[2021-08-28] MEDS: RT-ALBUTEROL/IPRATROPIUM 3 ML (DUONEB) VIAL INH SCH ×4 (07:32→18:57)
[2021-08-28] MEDS: FUROSEMIDE 40 MG/4 ML INJ (LASIX) IVP SCH (08:15)
[2021-08-28] MEDS: APIXABAN 5 MG (ELIQUIS) TABLET PO SCH ×2 (08:15→20:15)
[2021-08-28] MEDS: ALPRAZolam 0.25 MG (XANAX) TAB PO PRN (08:16)
--- NOTE | 2021-08-28 08:44 | Progress Note - Hospitalist ---
Subjective HPI/CC On Admission Date Seen by Provider: Aug 28, 2021 Time Seen by Provider: 08:40 65-year-old -E[place]ian male with a past medical history of peripheral artery disease, coronary artery disease, A. fib, and hypothyroidism who presented to the emergency department due to shortness of breath for the past month. He was seen in the emergency department a couple of weeks ago and was advised to follow-up with cardiology at that time. He has seen his PCP in that timeframe and had a negative test last week. Despite this he continued to worsen and developed diarrhea. On arrival to the emergency department he was f ound to be in A. fib with RVR started on a Cardizem drip. He also had an elevated BNP of 11,000 up from 6000 in July. X-ray revealed pulmonary vascular congestion. He was admitted to the ICU on a Cardizem drip. His rate is much improved in the low 100s while I was at bedside. He reports feeling much better today though he states he had a rough night with shortness of breath and required BiPAP intermittently overnight. Subjective/Events-last exam Pt reports doing well. Had a 7 beat run of V tach yesterday so stayed in ICU. Was asymptomatic during it though. He reports feeling back to normal now. Objective Exam Vital Signs Vital Signs Date Time Temp Pulse Resp B/P (MAP) Pulse Ox O2 Delivery O2 Flow Rate FiO2 08/28/21 08:00 120 13 114/67 96 Room Air 08/28/21 07:54 36.5 08/26/21 10:00 25.00 08/26/21 09:33 21 Capillary Refill : Less Than 3 Seconds General Appearance: No Apparent Distress, WD/WN Respiratory: Lungs Clear, No Respiratory Distress Cardiovascular: No Murmur, Irregularly Irregular Neurologic/Psychiatric: Alert, Oriented x3 Results/Procedures Lab Laboratory Tests 08/28/21 04:47 Patient resulted labs reviewed. Imaging: Reviewed Imaging Report Assessment/Plan Assessment and Plan Assess & Plan/Chief Complaint A-fib with RVR decompensated systolic heart failure Acute hypoxic respiratory failure Off cardizem gtt since 08/27 Continue oral cardizem and metoprolol Cardiology consulted, appreciate recs Eliquis Continue lasix Echo reveals EF of 25% with mitral regurg Repeat echo today Transfer to CSD unit FRITZ Unsure of baseline CKD but 1 month ago around 1.5 Clergy Member improved to 1.59 this AM Trend with lasix but so far tolerating well HTN HLD PAD Continue home meds as able Hypothyroidism Continue home synthroid TSh slightly low so will decrease to 125mcg Synthroid DVT ppx: Eliquis Critical Care Critically Ill Patient Diagnosis/Problems Diagnosis/Problems (1) Atrial fibrillation with rapid ventricular response Status: Acute (2) Renal insufficiency Status: Acute (3) PAD (peripheral artery disease) (4) CAD (coronary artery disease) (5) Hyperlipidemia MOISÉS BARROW MD Aug 28, 2021 08:44
--- NOTE | 2021-08-28 08:49 | Tele-ICU Progress Note ---
Subjective Date Seen by a Provider: Aug 28, 2021 Time Seen by a Provider: 07:20 Subjective/Events-last exam This virtual visit was conducted using real time audio/video. Thank you for asking us to see this patient for afib/RVR and CHF. HPC: Recent events: remains in afib. On room air. PE: VSS HR 100-105 afib. O2 sat 93% on RA HEENT: No obvious masses, adenopathy or JVD. ChesIrreg. S1 S2 No murmur or added sounds. Abd: Non-tender. Bowel sounds . : Unremarkable. Nixon N. NOTEREADER/psychiatric: Alert and oriented, grossly intact. No obvious focal findings. Extremities: No edema. Capillary refill < 3 seconds. Skin: unremarkable. Results: Elevated BNP 11,765, BUN 31, creat 1.59. CXR w cardiomegaly, clear king. A/P: Afib: started on PO Cardizem. Available chart/ vitals / labs / images reviewed. Video assessment done using teleICU camera, rest of exam as per RN. Monitor for increasing HR. Critical Care: critically ill patient. Renal function improved. possible transfer if HR controlled. Discussed with COSTA Avery. Asked RN to reach out to eICU if any questions or concerns later. Time spent with patient/coordination of care with other health professionals (mins): 15 Sepsis Event Evaluation Height, Weight, BMI Height: 6'3.00" Weight: 232lbs. 0.0oz. 105.543447vj; 32.00 BMI Method: Exam Exam Patient acknowledged, consented, and participated in this virtual visit which was conducted using real time audio/video Vital Signs Date Time Temp Pulse Resp B/P (MAP) Pulse Ox O2 Delivery O2 Flow Rate FiO2 08/28/21 08:00 120 13 114/67 96 Room Air 08/28/21 07:54 36.5 08/28/21 07:33 95 Room Air 08/28/21 07:00 106 20 117/86 93 Room Air 08/28/21 07:00 89 08/28/21 06:00 93 27 114/90 99 Room Air 08/28/21 05:00 90 20 116/94 95 Room Air 08/28/21 04:00 98 Room Air 08/28/21 04:00 92 17 94 Room Air 08/28/21 03:00 97 22 97 Room Air 08/28/21 02:00 112 19 132/100 97 Room Air 08/28/21 01:00 91 08/28/21 01:00 108 26 116/94 96 Room Air 08/28/21 01:00 96 28 98/73 98 Room Air 08/28/21 00:00 135 26 128/105 93 Room Air 08/27/21 23:17 95 Room Air 08/27/21 23:00 121 24 104/61 92 Room Air 08/27/21 22:00 121 16 120/85 99 Room Air 08/27/21 21:00 120 29 130/71 93 Room Air 08/27/21 20:01 96 Room Air 08/27/21 20:00 104 23 133/71 96 Room Air 08/27/21 20:00 37.2 08/27/21 20:00 94 Room Air 08/27/21 19:00 126 08/27/21 19:00 126 16 111/98 95 Room Air 08/27/21 18:00 112 19 105/86 92 Room Air 08/27/21 17:00 114 29 109/60 97 Room Air 08/27/21 16:00 114 22 112/80 95 Room Air 08/27/21 15:47 93 Room Air 08/27/21 15:33 36.7 08/27/21 15:08 95 Room Air 08/27/21 15:00 92 24 105/89 94 Room Air 08/27/21 14:00 126 18 107/77 91 Room Air 08/27/21 13:00 114 25 95/77 98 Room Air 08/27/21 12:52 138 08/27/21 12:00 137 18 111/98 92 Room Air 08/27/21 12:00 95 Room Air 08/27/21 11:39 36.3 08/27/21 11:00 134 16 106/61 94 Room Air 08/27/21 10:02 96 Room Air 08/27/21 10:00 117 22 106/92 93 Room Air 08/27/21 09:00 109 25 119/97 96 Room Air I & O 08/28/21 07:00 Intake Total 1840 ml Output Total 3650 ml Balance -1810 ml Height & Weight Height: 6'3.00" Weight: 232lbs. 0.0oz. 105.538634gk; 32.00 BMI Method: General Appearance: No Apparent Distress, WD/WN HEENT: PERRL/EOMI, Moist Mucous Membranes; No Scleral Icterus (L), No Scleral Icterus (R) Neck: Normal Inspection, Supple Respiratory: Lungs Clear, No Respiratory Distress Cardiovascular: No Murmur, Irregularly Irregular, Tachycardia Capillary Refill: Less Than 3 Seconds Peripheral Pulses: 1+ Dorsalis Pedis (R), 1+ Left Dors-Pedis (L) Extremity: Normal Capillary Refill, No Calf Tenderness, No Pedal Edema Neurologic/Psychiatric: Alert, Oriented x3 Skin: Normal Color, Warm/Dry Results Lab Laboratory Tests 08/27/21 04:27 08/28/21 04:47 Assessment/Plan Assessment/Plan See free text. Critical Care: Critically Ill Patient CLAUDETTE JULIAN MD Aug 28, 2021 08:49
[2021-08-28] MEDS ORDERED: LEVOTHYROXINE 150 MCG (LEVOTHROID) TAB PO SCH (09:00)
[2021-08-28] MEDS: ACETAMINOPHEN 500 MG TAB (TYLENOL) PO PRN (09:14)
[2021-08-28] MEDS: meTOproloL SUCCINATE 50 MG (TOPROL XL) TAB PO SCH (13:15)
--- NOTE | 2021-08-28 14:23 | Progress Note - Cardiology ---
Cardiology SOAP Progress Note Subjective: Less short of breath No cp or palp or syncope No n/v/d Gen malaise and weakness are improving Objective: I&O/Vital Signs 08/28/21 08/28/21 08/28/21 08/28/21 03:00 04:00 04:00 05:00 Pulse 97 92 90 Resp 22 17 20 B/P (MAP) 116/94 Pulse Ox 97 94 98 95 O2 Delivery Room Air Room Air Room Air Room Air 08/28/21 08/28/21 08/28/21 08/28/21 06:00 07:00 07:00 07:33 Pulse 93 89 106 Resp 27 20 B/P (MAP) 114/90 117/86 Pulse Ox 99 93 95 O2 Delivery Room Air Room Air Room Air 08/28/21 08/28/21 08/28/21 08/28/21 07:54 08:00 08:00 09:00 Temp 36.5 Pulse 120 110 Resp 13 26 B/P (MAP) 114/67 128/79 Pulse Ox 96 96 93 O2 Delivery Room Air Room Air Room Air 08/28/21 08/28/21 08/28/21 12:00 12:00 12:52 Temp 36.6 Pulse 106 93 Resp 12 B/P (MAP) 102/80 Pulse Ox 100 O2 Delivery Room Air 08/27/21 23:59 Intake Total 1040 ml Output Total 2050 ml Balance -1010 ml Weight (Pounds): 232 Weight (Ounces): 0.0 Weight (Calculated Kilograms): 105.855843 Constitutional: well-developed, well-nourished, other (speech is slurred at times, appears mildly confused at times) Respiratory: No accessory muscle use; other (scattered rhonchi, exp wheezes, somewhat diminished air entry) Cardiovascular: irregularly irregular, S1 and S2, systolic murmur (soft KADEN at card base) Gastrointestional: No tender; soft; No guarding, No rebound; audible bowel sounds Extremities: No cyanosis, No significant edema Neurologic/Psychiatric: oriented x 3 (conversation in-appropriate to situation at times - re-orients easily), other (moves all limbs equally) Skin: No rash on exposed areas, No ulcerations on exposed areas Results/Procedures: Labs Laboratory Tests 08/28/21 04:47: White Blood Count 8.5, Red Blood Count 5.24, Hemoglobin 14.2, Hematocrit 44, Mean Corpuscular Volume 84, Mean Corpuscular Hemoglobin 27, Mean Corpuscular Hemoglobin Concent 32, Red Cell Distribution Width 14.6H, Platelet Count 190, Mean Platelet Volume 11.1, Immature Granulocyte % (Auto) 0, Neutrophils (%) (Auto) 74, Lymphocytes (%) (Auto) 11L, Monocytes (%) (Auto) 13H, Eosinophils (%) (Auto) 1, Basophils (%) (Auto) 0, Neutrophils # (Auto) 6.3, Lymphocytes # (Auto) 1.0, Monocytes # (Auto) 1.1H, Eosinophils # (Auto) 0.1, Basophils # (Auto) 0.0, Immature Granulocyte # (Auto) 0.0, Sodium Level 139, Potassium Level 4.0, Chloride Level 104, Carbon Dioxide Level 22, Anion Gap 13, Blood Urea Nitrogen 31H, Creatinine 1.59H, Estimat Glomerular Filtration Rate 53, BUN/Creatinine Ratio 19, Glucose Level 127H, Calcium Level 9.2, Corrected Calcium 9.3, Phosphorus Level 3.9, Magnesium Level 1.8, Total Bilirubin 0.9, Aspartate Amino Transf (AST/SGOT) 19, Alanine Aminotransferase (ALT/SGPT) 27, Alkaline Phosphatase 46, Total Protein 6.8, Albumin 3.9 Microbiology 08/25/21 MRSA Screen - Final, Complete MRSA not isolated Laboratory Tests 08/27/21 04:27 08/28/21 04:47 Laboratory Tests 08/27/21 04:27 08/28/21 04:47 A/P: Assessment: Acute systolic CHF - Echo of 08/25/21: LVEF 25-30% (significantly lower compared to echo of 2019 that showed EF 60-65%), moderate diffuse hypokinesis, mod dilatation of LA and RA, mod to severe MR, mod TR, PASP 35 - 40 mmHg - Echo of 08/28/21: LVEF 25-30%, mod MR, mod enlargement of LV and atria, Pasp 30-35 mmHg Ac renal failure, likely related to CHF / low CO, improving with treatment of heart failure Intermittent confusion - undetermined etiology, improving SSS with PAF - PAFlutter documented on an ECG of 09/05/17 at [facility] (with junctional competition) documented on an ECG of 09/07/17 - A Fib with RVR during this admission of Aug 2021, rate difficult to control Leg claudication and PAD: -Severe PAD diagnosed on an abd ao CTA on 09/05/17 at [facility]: complete occ of R SFA, single vessel runoff in thee R calf and in the L calf. - Has had PCI to the R leg by Dr Matta at [place], [place] on 09/10/17. Has followed with Dr Bernard at [facility]. - Has undergone further PAD intervention on 04/01/21 on the R leg with and is awaiting intervention on the L leg with Dr Bernard Carotid u/s of 11/14/18 showed mild bilat carotid dz CAD -Abnormal stress test on 09/25/17 showed a small amount of basal inf ischemia and LVEF 47%. - Subsequent cardiac cath of Nov 06, 2017 showed angiographically mild CAD. LVEF 55-60%. Normal LVEDP. Mild calcification of the aortic arch. No significant mitral regurg. - Repeat MPI of 12/02/19 shows the small amount of basal inf-lat ischemia (essentially the same finding as in Sep 2017) that has already been investigated with cath described above KRISTINA - treated with CPAP Tobacco use, chronic, quit on 09/10/17 Impaired fasting glucose Hypothyroidism, treated with thyroid replacement by his pcp, Dr Juan Heller h/o CAD (brothers at age younger than 60) CTA of 09/05/17 also showed bilat inguinal hernias containing only fat, bilat hydrocele. prostate enlargement and urinary bladder wall thickening, umbilical hernia containing only fat BP difference of approx 20 mmHg from right arm to left arm on an office visit in 2018. CT angio of 05/09/18 was reported to be a poor study, but did not report any significant stenosis. No significant bp diff today Plan: * Complex management * Continue diuretics and regimen of vent rate control and for dilated cardiomyopathy * Not suitable for BRANDON-inhib or ARB due to renal failure and hyperkalemia * Monitor labs * Would need Life YULIYA Rebolledo MD FACP [facility]S Aug 28, 2021 14:23
[2021-08-29] MEDS: LEVOTHYROXINE 125 MCG (LEVOTHROID) TABLET PO SCH (05:41)
[2021-08-29 06:15] LABS: BASOPHILS % (AUTO) 1 % (0-10); EOSINOPHILS # (AUTO) 0.3 10^3/uL (0.0-0.3); EOSINOPHILS % (AUTO) 3 % (0-10); HEMATOCRIT 45 % (40-54); HEMOGLOBIN 14.8 g/dL (13.3-17.7); LYMPHOCYTES % (AUTO) 13 % (12-44); MEAN CORPUSCULAR HEMOGLOBIN 28 pg (25-34); MEAN CORPUSCULAR HGB CONC 33 g/dL (32-36); MEAN CORPUSCULAR VOLUME 85 fL (80-99); MEAN PLATELET VOLUME 11.2 fL (9.0-12.2); MONOCYTES % (AUTO) 12 % (0-12); NEUTROPHILS # (AUTO) 5.8 10^3/uL (1.8-7.8); NEUTROPHILS % (AUTO) 71 % (42-75); PLATELET COUNT 196 10^3/uL (130-400); WHITE BLOOD COUNT 8.2 10^3/uL (4.3-11.0)
[2021-08-29 06:48] LABS: ALBUMIN 3.7 GM/DL (3.2-4.5); BILIRUBIN,TOTAL 0.7 MG/DL (0.1-1.0); CREATININE SERUM 1.62 MG/DL (0.60-1.30); MAGNESIUM 1.8 MG/DL (1.6-2.4); PHOSPHORUS 3.9 MG/DL (2.3-4.7); TOTAL PROTEIN 6.8 GM/DL (6.4-8.2)
[2021-08-29] MEDS: RT-ALBUTEROL/IPRATROPIUM 3 ML (DUONEB) VIAL INH SCH ×4 (07:15→18:50)
[2021-08-29] MEDS: APIXABAN 5 MG (ELIQUIS) TABLET PO SCH ×2 (08:27→20:46)
[2021-08-29] MEDS: meTOproloL SUCCINATE 50 MG (TOPROL XL) TAB PO SCH (08:27)
[2021-08-29] MEDS: FUROSEMIDE 40 MG/4 ML INJ (LASIX) IVP SCH (08:27)
--- NOTE | 2021-08-29 08:45 | Discharge Summary ---
Diagnosis/Chief Complaint Date of Admission Aug 25, 2021 at 16:12 Date of Discharge Discharge Date: Aug 29, 2021 Admission Diagnosis A-fib with RVR Primary Care Dipak Martinez MD Discharge Diagnosis (1) Atrial fibrillation with rapid ventricular response Status: Acute (2) Renal insufficiency Status: Acute (3) PAD (peripheral artery disease) (4) CAD (coronary artery disease) (5) Hyperlipidemia Discharge Summary Discharge Physical Exam Allergies: Coded Allergies: No Known Drug Allergies (Unverified , 11/06/17) Vitals & I&Os Vital Signs Date Time Temp Pulse Resp B/P (MAP) Pulse Ox O2 Delivery O2 Flow Rate FiO2 08/31/21 07:42 35.4 71 19 115/78 93 Room Air 08/30/21 13:12 4.00 08/26/21 09:33 21 General Appearance: No Apparent Distress, WD/WN Respiratory: Lungs Clear, No Respiratory Distress Cardiovascular: No Murmur, Irregularly Irregular Gastrointestinal: Normal Bowel Sounds, Non Tender, Soft Neurologic/Psychiatric: Alert, Oriented x3 Hospital Course Patient was admitted to the hospital secondary to acutely decompensated systolic heart failure due to atrial fibrillation with rapid ventricular rate. He was diuresed with Lasix and did well. He was treated with IV Cardizem drip and did well and was able to be switched to oral Cardizem. He did have an episode of ventricular tachycardia noted on telemetry and metoprolol was added. He had no further issues following that. Echo revealed an EF of 25% and a LifeVest was arranged prior to discharge. He was seen in consultation by his primary cloth pattern maker Dr. Cuevas and is to follow-up with him after he gets out of the hospital. Labs (last 24 hrs) Laboratory Tests 08/31/21 05:50: White Blood Count 7.8, Red Blood Count 5.26, Hemoglobin 14.3, Hematocrit 44, Mean Corpuscular Volume 83, Mean Corpuscular Hemoglobin 27, Mean Corpuscular Hemoglobin Concent 33, Red Cell Distribution Width 14.4, Platelet Count 226, Mean Platelet Volume 10.7, Immature Granulocyte % (Auto) 0, Neutrophils (%) (Auto) 65, Lymphocytes (%) (Auto) 18, Monocytes (%) (Auto) 11, Eosinophils (%) (Auto) 5, Basophils (%) (Auto) 0, Neutrophils # (Auto) 5.1, Lymphocytes # (Auto) 1.4, Monocytes # (Auto) 0.9, Eosinophils # (Auto) 0.4H, Basophils # (Auto) 0.0, Immature Granulocyte # (Auto) 0.0, Sodium Level 139, Potassium Level 4.3, Chloride Level 104, Carbon Dioxide Level 21, Anion Gap 14, Blood Urea Nitrogen 32H, Creatinine 1.90H, Estimat Glomerular Filtration Rate 43, BUN/Creatinine Ratio 17, Glucose Level 110H, Calcium Level 9.2, Corrected Calcium 9.3, Phosphorus Level 3.7, Magnesium Level 1.8, Total Bilirubin 0.7, Aspartate Amino Transf (AST/SGOT) 19, Alanine Aminotransferase (ALT/SGPT) 28, Alkaline Phosphatase 51, Total Protein 7.0, Albumin 3.9 Microbiology 08/25/21 MRSA Screen - Final, Complete MRSA not isolated Patient resulted labs reviewed. Pending Labs Laboratory Tests 08/31/21 05:50: White Blood Count 7.8, Red Blood Count 5.26, Hemoglobin 14.3, Hematocrit 44, Mean Corpuscular Volume 83, Mean Corpuscular Hemoglobin 27, Mean Corpuscular Hemoglobin Concent 33, Red Cell Distribution Width 14.4, Platelet Count 226, Mean Platelet Volume 10.7, Immature Granulocyte % (Auto) 0, Neutrophils (%) (Auto) 65, Lymphocytes (%) (Auto) 18, Monocytes (%) (Auto) 11, Eosinophils (%) (Auto) 5, Basophils (%) (Auto) 0, Neutrophils # (Auto) 5.1, Lymphocytes # (Auto) 1.4, Monocytes # (Auto) 0.9, Eosinophils # (Auto) 0.4, Basophils # (Auto) 0.0, Immature Granulocyte # (Auto) 0.0, Sodium Level 139, Potassium Level 4.3, Chloride Level 104, Carbon Dioxide Level 21, Anion Gap 14, Blood Urea Nitrogen 32, Creatinine 1.90, Estimat Glomerular Filtration Rate 43, BUN/Creatinine Ratio 17, Glucose Level 110, Calcium Level 9.2, Corrected Calcium 9.3, Phosphorus Level 3.7, Magnesium Level 1.8, Total Bilirubin 0.7, Aspartate Amino Transf (AST/SGOT) 19, Alanine Aminotransferase (ALT/SGPT) 28, Alkaline Phosphatase 51, Total Protein 7.0, Albumin 3.9 Imaging: Reviewed Imaging Report Discussion & Recommendations Discharge Planning: >30 minutes discharge planning Discharge Home Medications: Active Scripts Active Reported Tylenol Extra Strength (Acetaminophen) 500 Mg Tablet 1,000 Mg PO Q8H PRN Carvedilol 3.125 Mg Tablet 3.125 Mg PO BID Atorvastatin Calcium 20 Mg Tablet 20 Mg PO HS Clopidogrel (Clopidogrel Bisulfate) 75 Mg Tablet 75 Mg PO DAILY Euthyrox (Levothyroxine Sodium) 150 Mcg Tablet 150 Mcg PO DAILY Diltiazem 24Hr ER (Diltiazem HCl) 120 Mg Cap.er.24h 120 Mg PO HS Eliquis (Apixaban) 5 Mg Tablet 5 Mg PO BID Instructions to patient/family Please see electronic discharge instructions given to patient. MOISÉS BARROW MD Aug 29, 2021 08:45
--- NOTE | 2021-08-29 09:12 | Progress Note - Cardiology ---
Cardiology SOAP Progress Note Subjective: Up in room getting dressed HR in the 140's to 150's No c/o CP Mild SOB with exertional activity No c/o palpitations, syncope or near syncope Objective: I&O/Vital Signs 08/29/21 08/29/21 08/30/21 08/30/21 21:00 21:09 00:26 01:00 Temp 36.6 Pulse 98 92 93 Resp 16 B/P (MAP) 100/62 Pulse Ox 96 97 O2 Delivery Room Air Room Air 08/30/21 08/30/21 08/30/21 04:14 07:00 07:28 Temp 36.4 Pulse 111 103 Resp 18 B/P (MAP) 104/92 Pulse Ox 96 96 O2 Delivery Room Air Room Air 08/30/21 00:00 Intake Total 1350 ml Balance 1350 ml Weight (Pounds): 232 Weight (Ounces): 0.0 Weight (Calculated Kilograms): 105.858224 Constitutional: well-developed, well-nourished, other (speech is slurred at times, appears mildly confused at times) Respiratory: No accessory muscle use; other (scattered rhonchi, exp wheezes, somewhat diminished air entry) Cardiovascular: irregularly irregular, S1 and S2, systolic murmur (soft KADEN at card base) Gastrointestional: No tender; soft; No guarding, No rebound; audible bowel sounds Extremities: No cyanosis, No significant edema Neurologic/Psychiatric: oriented x 3 (conversation in-appropriate to situation at times - re-orients easily), other (moves all limbs equally) Skin: No rash on exposed areas, No ulcerations on exposed areas Results/Procedures: Labs Laboratory Tests 08/30/21 05:15: White Blood Count 8.9, Red Blood Count 5.38, Hemoglobin 14.9, Hematocrit 45, Mean Corpuscular Volume 84, Mean Corpuscular Hemoglobin 28, Mean Corpuscular Hemoglobin Concent 33, Red Cell Distribution Width 14.6H, Platelet Count 217, Mean Platelet Volume 10.9, Immature Granulocyte % (Auto) 0, Neutrophils (%) (Auto) 70, Lymphocytes (%) (Auto) 14, Monocytes (%) (Auto) 12, Eosinophils (%) (Auto) 4, Basophils (%) (Auto) 0, Neutrophils # (Auto) 6.2, Lymphocytes # (Auto) 1.2, Monocytes # (Auto) 1.0, Eosinophils # (Auto) 0.4H, Basophils # (Auto) 0.0, Immature Granulocyte # (Auto) 0.0, Sodium Level 138, Potassium Level 4.2, Chloride Level 103, Carbon Dioxide Level 20L, Anion Gap 15H, Blood Urea Nitrogen 29H, Creatinine 1.60H, Estimat Glomerular Filtration Rate 53, BUN/Creatinine Ratio 18, Glucose Level 123H, Calcium Level 9.0, Corrected Calcium 9.1, Phosphorus Level 3.8, Magnesium Level 1.8, Total Bilirubin 0.8, Aspartate Amino Transf (AST/SGOT) 23, Alanine Aminotransferase (ALT/SGPT) 32, Alkaline Phosphatase 44, Total Protein 6.9, Albumin 3.9 Microbiology 08/25/21 MRSA Screen - Final, Complete MRSA not isolated A/P: Assessment: 6 beat run of WCT on the morning of 08-29-21 while up in room Acute systolic CHF - Echo of 08/25/21: LVEF 25-30% (significantly lower compared to echo of 2019 that showed EF 60-65%), moderate diffuse hypokinesis, mod dilatation of LA and RA, mod to severe MR, mod TR, PASP 35 - 40 mmHg - Echo of 08/28/21: LVEF 25-30%, mod MR, mod enlargement of LV and atria, Pasp 30-35 mmHg Ac renal failure, likely related to CHF / low CO, improving with treatment of heart failure Intermittent confusion - undetermined etiology, improving SSS with PAF - PAFlutter documented on an ECG of 09/05/17 at [facility] [place] [facility] [place] (with radha ctional competition) documented on an ECG of 09/07/17 - A Fib with RVR during this admission of Aug 2021, rate difficult to control Leg claudication and PAD: -Severe PAD diagnosed on an abd ao CTA on 09/05/17 at [facility]: complete occ of R SFA, single vessel runoff in thee R calf and in the L calf. - Has had PCI to the R leg by Dr Matta at [place], [place] on . Has followed with Dr Bernard at [facility] [place]. - Has undergone further PAD intervention on 04/01/21 on the R leg with and is awaiting intervention on the L leg with Dr Bernard Carotid u/s of 11/14/18 showed mild bilat carotid dz CAD -Abnormal stress test on 09/25/17 showed a small amount of basal inf ischemia and LVEF 47%. - Subsequent cardiac cath of Nov 06, 2017 showed angiographically mild CAD. LVEF 55-60%. Normal LVEDP. Mild calcification of the aortic arch. No significant mitral regurg. - Repeat MPI of 12/02/19 shows the small amount of basal inf-lat ischemia (essentially the same finding as in Sep 2017) that has already been investigated with cath described above KRISTINA - treated with CPAP Tobacco use, chronic, quit on 09/10/17 Impaired fasting glucose Hypothyroidism, treated with thyroid replacement by his pcp, Dr Juan Heller h/o CAD (brothers at age younger than 60) CTA of 09/05/17 also showed bilat inguinal hernias containing only fat, bilat hydrocele. prostate enlargement and urinary bladder wall thickening, umbilical hernia containing only fat BP difference of approx 20 mmHg from right arm to left arm on an office visit in 2018. CT angio of 05/09/18 was reported to be a poor study, but did not report any significant stenosis. No significant bp diff today Plan: * Complex management * Continue diuretics and regimen of vent rate control and for dilated cardiomyopathy * Not suitable for BRANDON-inhib or ARB due to renal failure and hyperkalemia * HR not well controlled * 6 beat run of wide complex tachycardia this morning while up in room * Monitor labs * Life Vest for out LAYLA HENNING Aug 29, 2021 09:12
[2021-08-29] MEDS ORDERED: AMIODARONE FOR BOLUS 150 MG in D5W 100 ML IVPB 100 ML IV SCH (09:26)
[2021-08-29] MEDS ORDERED: AMIODARONE INJECTION 450 MG in D5W IV SOLUTION (EXCEL) 250 ML IV SCH (09:30)
[2021-08-29] MEDS ORDERED: AMIODARONE FOR BOLUS 150 MG in D5W 100 ML IVPB 100 ML IV NR (10:00)
[2021-08-29] MEDS: AMIODARONE INJECTION 450 MG in D5W IV SOLUTION (EXCEL) 250 ML IV SCH ×2 (11:21→20:46)
--- NOTE | 2021-08-29 12:51 | Progress Note - Hospitalist ---
Subjective HPI/CC On Admission Date Seen by Provider: Aug 29, 2021 Time Seen by Provider: 12:46 65-year-old -[place] male with a past medical history of peripheral artery disease, coronary artery disease, A. fib, and hypothyroidism who presented to the emergency department due to shortness of breath for the past month. He was seen in the emergency department a couple of weeks ago and was advised to follow-up with cardiology at that time. He has seen his PCP in that timeframe and had a negative test last week. Despite this he continued to worsen and developed diarrhea. On arrival to the emergency department he was f ound to be in A. fib with RVR started on a Cardizem drip. He also had an elevated BNP of 11,000 up from 6000 in July. X-ray revealed pulmonary vascular congestion. He was admitted to the ICU on a Cardizem drip. His rate is much improved in the low 100s while I was at bedside. He reports feeling much better today though he states he had a rough night with shortness of breath and required BiPAP intermittently overnight. Subjective/Events-last exam Pt reports doing well. Hopeful to go home. Shortly after my visit he had recurrent V tach. Started on amiodarone gtt by cardiology. Objective Exam Vital Signs Vital Signs Date Time Temp Pulse Resp B/P (MAP) Pulse Ox O2 Delivery O2 Flow Rate FiO2 08/29/21 10:43 117 117/74 08/29/21 10:25 97 08/29/21 08:19 36.3 20 Room Air 08/26/21 10:00 25.00 08/26/21 09:33 21 Capillary Refill : Less Than 3 Seconds General Appearance: No Apparent Distress, WD/WN Respiratory: Lungs Clear, No Respiratory Distress Cardiovascular: Regular Rate, Rhythm, No Murmur Neurologic/Psychiatric: Alert, Oriented x3 Results/Procedures Lab Laboratory Tests 08/29/21 05:10 08/29/21 05:40 Patient resulted labs reviewed. Imaging: Reviewed Imaging Report Assessment/Plan Assessment and Plan Assess & Plan/Chief Complaint A-fib with RVR decompensated systolic heart failure Acute hypoxic respiratory failure nonsustained v-tach Off cardizem gtt since 08/27 Continue oral cardizem and metoprolol Cardiology consulted, appreciate recs Eliquis Continue lasix Echo reveals EF of 25% with mitral regurg, persistently reduced EF on repeat echo Started on amiodarone gtt per cardiology Discussed with Dr Brooks who is considering cardioversion tomorrow FRITZ Unsure of baseline CKD but 1 month ago around 1.5 Hospice Nurse Practitioner improved to 1.62 this AM Trend with lasix but so far tolerating well HTN HLD PAD Continue home meds as able Hypothyroidism Continue home synthroid TSH slightly low so will decrease to 125mcg Synthroid DVT ppx: Eliquis Critical Care Critically Ill Patient Diagnosis/Problems Diagnosis/Problems (1) Atrial fibrillation with rapid ventricular response Status: Acute (2) Renal insufficiency Status: Acute (3) PAD (peripheral artery disease) (4) CAD (coronary artery disease) (5) Hyperlipidemia MOISÉS BARROW MD Aug 29, 2021 12:50
--- NOTE | 2021-08-29 17:07 | Progress Note - Cardiology ---
Cardiology SOAP Progress Note Subjective: No cp or palp or syncope No shortness of breath at rest No n/v/d Gen malaise and weakness Objective: I&O/Vital Signs 08/29/21 08/29/21 08/29/21 08/29/21 07:00 07:15 08:00 08:00 Temp 36.4 36.6 Pulse 101 Resp 20 20 B/P (MAP) 117/73 105/70 Pulse Ox 96 98 96 O2 Delivery Room Air Room Air Room Air 08/29/21 08/29/21 08/29/21 08/29/21 08:19 09:00 10:25 10:43 Temp 36.3 Pulse 115 117 Resp 20 B/P (MAP) 117/74 117/74 Pulse Ox 98 96 97 O2 Delivery Room Air Room Air 08/29/21 08/29/21 08/29/21 08/29/21 12:00 13:00 13:56 15:30 Pulse 102 96 100 Resp 18 15 B/P (MAP) 101/60 115/27 Pulse Ox 98 O2 Delivery Room Air Room Air Room Air 08/29/21 00:00 Intake Total 1300 ml Output Total 950 ml Balance 350 ml Weight (Pounds): 232 Weight (Ounces): 0.0 Weight (Calculated Kilograms): 105.202384 Constitutional: well-developed, well-nourished, other (speech is slurred at times, appears mildly confused at times) Respiratory: No accessory muscle use; other (scattered rhonchi, exp wheezes, somewhat diminished air entry) Cardiovascular: irregularly irregular, S1 and S2, systolic murmur (soft KADEN at card base) Gastrointestional: No tender; soft; No guarding, No rebound; audible bowel sounds Extremities: No cyanosis, No significant edema Neurologic/Psychiatric: oriented x 3 (conversation in-appropriate to situation at times - re-orients easily), other (moves all limbs equally) Skin: No rash on exposed areas, No ulcerations on exposed areas Results/Procedures: Labs Laboratory Tests 08/29/21 05:10: White Blood Count 8.2, Red Blood Count 5.34, Hemoglobin 14.8, Hematocrit 45, Mean Corpuscular Volume 85, Mean Corpuscular Hemoglobin 28, Mean Corpuscular Hemoglobin Concent 33, Red Cell Distribution Width 14.7H, Platelet Count 196, Mean Platelet Volume 11.2, Immature Granulocyte % (Auto) 0, Neutrophils (%) (Auto) 71, Lymphocytes (%) (Auto) 13, Monocytes (%) (Auto) 12, Eosinophils (%) (Auto) 3, Basophils (%) (Auto) 1, Neutrophils # (Auto) 5.8, Lymphocytes # (Auto) 1.0, Monocytes # (Auto) 1.0, Eosinophils # (Auto) 0.3, Basophils # (Auto) 0.0, Immature Granulocyte # (Auto) 0.0 08/29/21 05:40: Sodium Level 139, Potassium Level 4.0, Chloride Level 104, Carbon Dioxide Level 20L, Anion Gap 15H, Blood Urea Nitrogen 29H, Creatinine 1.62H, Estimat Glomerular Filtration Rate 52, BUN/Creatinine Ratio 18, Glucose Level 170H, Calcium Level 9.0, Corrected Calcium 9.2, Phosphorus Level 3.9, Magnesium Level 1.8, Total Bilirubin 0.7, Aspartate Amino Transf (AST/SGOT) 20, Alanine Aminotr ansferase (ALT/SGPT) 30, Alkaline Phosphatase 44, Total Protein 6.8, Albumin 3.7 Microbiology 08/25/21 MRSA Screen - Final, Complete MRSA not isolated A/P: Assessment: 6 beat run of WCT on the morning of 08-29-21 while up in room Acute systolic CHF - Echo of 08/25/21: LVEF 25-30% (significantly lower compared to echo of 2019 that showed EF 60-65%), moderate diffuse hypokinesis, mod dilatation of LA and RA, mod to severe MR, mod TR, PASP 35 - 40 mmHg - Echo of 08/28/21: LVEF 25-30%, mod MR, mod enlargement of LV and atria, Pasp 30-35 mmHg Ac renal failure, likely related to CHF / low CO, improving with treatment of heart failure Intermittent confusion - undetermined etiology, improving SSS with PAF - PAFlutter documented on an ECG of 09/05/17 at [facility] (with junctional competition) documented on an ECG of 09/07/17 - A Fib with RVR during this admission of Aug 2021, rate difficult to control Leg claudication and PAD: -[facility] [facility] complete occ of R SFA, single vessel runoff in thee R calf and in the L calf. - Has had PCI to the R leg by Dr Matta at [place], [place] on 09/10/17. Has followed with Dr Bernard at [facility]. - Has undergone further PAD intervention on 04/01/21 on the R leg with and is awaiting intervention on the L leg with Dr Bernard Carotid u/s of 11/14/18 showed mild bilat carotid dz CAD -Abnormal stress test on 09/25/17 showed a small amount of basal inf ischemia and LVEF 47%. - Subsequent cardiac cath of Nov 06, 2017 showed angiographically mild CAD. LVEF 55-60%. Normal LVEDP. Mild calcification of the aortic arch. No significant mitral regurg. - Repeat MPI of 12/02/19 shows the small amount of basal inf-lat ischemia (essentially the same finding as in Sep 2017) that has already been investigated with cath described above KRISTINA - treated with CPAP Tobacco use, chronic, quit on 09/10/17 Impaired fasting glucose Hypothyroidism, treated with thyroid replacement by his pcp, Dr Martinez Fam h/o CAD (brothers at age younger than 60) CTA of 09/05/17 also showed bilat inguinal hernias containing only fat, bilat hydrocele. prostate enlargement and urinary bladder wall thickening, umbilical hernia containing only fat BP difference of approx 20 mmHg from right arm to left arm on an office visit in 2018. CT angio of 05/09/18 was reported to be a poor study, but did not report any significant stenosis. No significant bp diff today Plan: * Complex management (now exhibiting NSVT) * Continue diuretics and regimen of vent rate control and for dilated cardiomyopathy * Not suitable for BRANDON-inhib or ARB due to renal failure and hyperkalemia * Start amiodarone. Consider electrical cardioversion * Monitor labs * Life Vest * Discussed with YULIYA Osullivan MD FACP [facility] Aug 29, 2021 17:07
[2021-08-29] MEDS: ACETAMINOPHEN 500 MG TAB (TYLENOL) PO PRN (17:52)
[2021-08-29] MEDS: ALPRAZolam 0.25 MG (XANAX) TAB PO PRN (20:46)
[2021-08-30 05:43] LABS: BASOPHILS % (AUTO) 0 % (0-10); EOSINOPHILS # (AUTO) 0.4 10^3/uL (0.0-0.3); EOSINOPHILS % (AUTO) 4 % (0-10); HEMATOCRIT 45 % (40-54); HEMOGLOBIN 14.9 g/dL (13.3-17.7); LYMPHOCYTES # (AUTO) 1.2 10^3/uL (1.0-4.0); LYMPHOCYTES % (AUTO) 14 % (12-44); MEAN CORPUSCULAR HEMOGLOBIN 28 pg (25-34); MEAN CORPUSCULAR HGB CONC 33 g/dL (32-36); MEAN CORPUSCULAR VOLUME 84 fL (80-99); MEAN PLATELET VOLUME 10.9 fL (9.0-12.2); MONOCYTES % (AUTO) 12 % (0-12); NEUTROPHILS # (AUTO) 6.2 10^3/uL (1.8-7.8); NEUTROPHILS % (AUTO) 70 % (42-75); PLATELET COUNT 217 10^3/uL (130-400); WHITE BLOOD COUNT 8.9 10^3/uL (4.3-11.0)
[2021-08-30 06:03] LABS: ALBUMIN 3.9 GM/DL (3.2-4.5); POTASSIUM 4.2 MMOL/L (3.6-5.0)
[2021-08-30 06:05] LABS: TOTAL PROTEIN 6.9 GM/DL (6.4-8.2)
[2021-08-30 06:07] LABS: BILIRUBIN,TOTAL 0.8 MG/DL (0.1-1.0)
[2021-08-30 06:09] LABS: CREATININE SERUM 1.6 MG/DL (0.60-1.30); PHOSPHORUS 3.8 MG/DL (2.3-4.7)
[2021-08-30 06:12] LABS: MAGNESIUM 1.8 MG/DL (1.6-2.4)
[2021-08-30] MEDS: LEVOTHYROXINE 125 MCG (LEVOTHROID) TABLET PO SCH (06:42)
[2021-08-30] MEDS: RT-ALBUTEROL/IPRATROPIUM 3 ML (DUONEB) VIAL INH SCH ×4 (07:28→18:07)
[2021-08-30] MEDS ORDERED: NS IV 1000 ML 1,000 ML IV ONE (08:00)
--- NOTE | 2021-08-30 08:23 | Progress Note - Cardiology ---
Cardiology SOAP Progress Note Subjective: Sitting up on the side of the bed Wants to go home, tired of being in the hospital No c/o CP, SOB, syncope or near syncope Objective: I&O/Vital Signs 08/30/21 08/30/21 08/31/21 08/31/21 21:00 23:51 01:00 04:10 Temp 37.0 Pulse 80 66 78 Resp 18 18 B/P (MAP) 130/103 122/80 Pulse Ox 97 97 96 O2 Delivery Room Air Room Air Room Air 08/31/21 07:42 Temp 35.4 Pulse 71 Resp 19 B/P (MAP) 115/78 Pulse Ox 93 O2 Delivery Room Air 08/31/21 00:00 Intake Total 1560 ml Balance 1560 ml Weight (Pounds): 232 Weight (Ounces): 0.0 Weight (Calculated Kilograms): 105.075946 Constitutional: well-developed, well-nourished, other (speech is slurred at times, appears mildly confused at times) Respiratory: No accessory muscle use; other (scattered rhonchi, exp wheezes, somewhat diminished air entry) Cardiovascular: irregularly irregular, S1 and S2, systolic murmur (soft KADEN at card base) Gastrointestional: No tender; soft; No guarding, No rebound; audible bowel sounds Extremities: No cyanosis, No significant edema Neurologic/Psychiatric: oriented x 3 (conversation in-appropriate to situation at times - re-orients easily), other (moves all limbs equally) Skin: No rash on exposed areas, No ulcerations on exposed areas Results/Procedures: Labs Laboratory Tests 08/31/21 05:50: White Blood Count 7.8, Red Blood Count 5.26, Hemoglobin 14.3, Hematocrit 44, Stella n Corpuscular Volume 83, Mean Corpuscular Hemoglobin 27, Mean Corpuscular Hemoglobin Concent 33, Red Cell Distribution Width 14.4, Platelet Count 226, Mean Platelet Volume 10.7, Immature Granulocyte % (Auto) 0, Neutrophils (%) (Auto) 65, Lymphocytes (%) (Auto) 18, Monocytes (%) (Auto) 11, Eosinophils (%) (Auto) 5, Basophils (%) (Auto) 0, Neutrophils # (Auto) 5.1, Lymphocytes # (Auto) 1.4, Monocytes # (Auto) 0.9, Eosinophils # (Auto) 0.4H, Basophils # (Auto) 0.0, Immature Granulocyte # (Auto) 0.0, Sodium Level 139, Potassium Level 4.3, Chloride Level 104, Carbon Dioxide Level 21, Anion Gap 14, Blood Urea Nitrogen 32H, Creatinine 1.90H, Estimat Glomerular Filtration Rate 43, BUN/Creatinine Ratio 17, Glucose Level 110H, Calcium Level 9.2, Corrected Calcium 9.3, Phosphorus Level 3.7, Magnesium Level 1.8, Total Bilirubin 0.7, Aspartate Amino Transf (AST/SGOT) 19, Alanine Aminotransferase (ALT/SGPT) 28, Alkaline Phosphatase 51, Total Protein 7.0, Albumin 3.9 Microbiology 08/25/21 MRSA Screen - Final, Complete MRSA not isolated A/P: Assessment: 6 beat run of WCT on the morning of 08-29-21 while up in room - Amiodarone gtt started on 08-29-21 - continues to infuse Acute systolic CHF - Echo of 08/25/21: LVEF 25-30% (significantly lower compared to echo of 2019 that showed EF 60-65%), moderate diffuse hypokinesis, mod dilatation of LA and RA, mod to severe MR, mod TR, PASP 35 - 40 mmHg - Echo of 08/28/21: LVEF 25-30%, mod MR, mod enlargement of LV and atria, Pasp 30-35 mmHg Ac renal failure, likely related to CHF / low CO, improving with treatment of heart failure Intermittent confusion - undetermined etiology, improving SSS with PAF - PAFlutter documented on an ECG of 09/05/17 at [facility]. S Asa (with junctional competition) documented on an ECG of 09/07/17 - A Fib with RVR during this admission of Aug 2021, rate difficult to control - a-fib/flutter seen on tele on 08-30-21 Leg claudication and PAD: -[facility] complete occ of R SFA, single vessel runoff in thee R calf and in the L calf. - Has had PCI to the R leg by Dr Matta at [place], [place] on . Has followed with Dr Bernard at [facility]. - Has undergone further PAD intervention on 04/01/21 on the R leg with and is awaiting intervention on the L leg with Dr Bernard Carotid u/s of 11/14/18 showed mild bilat carotid dz CAD -Abnormal stress test on 09/25/17 showed a small amount of basal inf ischemia and LVEF 47%. - Subsequent cardiac cath of Nov 06, 2017 showed angiographically mild CAD. LVEF 55-60%. Normal LVEDP. Mild calcification of the aortic arch. No significant mitral regurg. - Repeat MPI of 12/02/19 shows the small amount of basal inf-lat ischemia (essentially the same finding as in Sep 2017) that has already been investigated with cath described above KRISTINA - treated with CPAP Tobacco use, chronic, quit on 09/10/17 Impaired fasting glucose Hypothyroidism, treated with thyroid replacement by his pcp, Dr Martinez Fam h/o CAD (brothers at age younger than 60) CTA of 09/05/17 also showed bilat inguinal hernias containing only fat, bilat hydrocele. prostate enlargement and urinary bladder wall thickening, umbilical hernia containing only fat BP difference of approx 20 mmHg from right arm to left arm on an office visit in 2017. CT angio of 05/09/18 was reported to be a poor study, but did not report any significant stenosis. No significant bp diff today Plan: * Complex management (now exhibiting NSVT) * Continue diuretics and regimen of vent rate control and for dilated cardiomyopathy * Not suitable for BRANDON-inhib or ARB due to renal failure and hyperkalemia * Start amiodarone - IV load still infusing then will change to oral when complete * Consider electrical cardioversion * Monitor labs * Life Vest * Discussed with Dr Moss * Discussed plan of care and answered 's questions in detail (Liliam) LAYLA HENNING Aug 30, 2021 08:23
--- NOTE | 2021-08-30 08:51 | Progress Note - Hospitalist ---
Subjective HPI/CC On Admission Date Seen by Provider: Aug 30, 2021 Time Seen by Provider: 08:37 65-year-old -[place] male with a past medical history of peripheral artery disease, coronary artery disease, A. fib, and hypothyroidism who presented to the emergency department due to shortness of breath for the past month. He was seen in the emergency department a couple of weeks ago and was advised to follow-up with cardiology at that time. He has seen his PCP in that timeframe and had a negative test last week. Despite this he continued to worsen and developed diarrhea. On arrival to the emergency department he was f ound to be in A. fib with RVR started on a Cardizem drip. He also had an elevated BNP of 11,000 up from 6000 in July. X-ray revealed pulmonary vascular congestion. He was admitted to the ICU on a Cardizem drip. His rate is much improved in the low 100s while I was at bedside. He reports feeling much better today though he states he had a rough night with shortness of breath and required BiPAP intermittently overnight. Subjective/Events-last exam Pt reports feeling ok today but seems more dejected. Discussed how he had nonsustained v tach yesterday causing him to stay in the hospital. Plan for possible cardioversion per Dr Brooks. Also discussed with Dr Todd Kamara's [employer] ASSIST[employer] who will call and update his as as well. Objective Exam Vital Signs Vital Signs Date Time Temp Pulse Resp B/P (MAP) Pulse Ox O2 Delivery O2 Flow Rate FiO2 08/30/21 07:28 96 Room Air 08/30/21 07:00 103 08/30/21 04:14 36.4 18 104/92 08/26/21 10:00 25.00 08/26/21 09:33 21 Capillary Refill : Less Than 3 Seconds General Appearance: No Apparent Distress, WD/WN Respiratory: Lungs Clear, No Respiratory Distress Cardiovascular: No Murmur, Irregularly Irregular, Tachycardia Gastrointestinal: Normal Bowel Sounds, Non Tender, Soft Neurologic/Psychiatric: Alert, Oriented x3 Results/Procedures Lab Laboratory Tests 08/30/21 05:15 Patient resulted labs reviewed. Imaging: Reviewed Imaging Report Assessment/Plan Assessment and Plan Assess & Plan/Chief Complaint A-fib with RVR decompensated systolic heart failure Acute hypoxic respiratory failure nonsustained v-tach Off cardizem gtt since 08/27 Continue oral cardizem and metoprolol Cardiology consulted, appreciate recs Eliquis Continue lasix Echo reveals EF of 25% with mitral regurg, persistently reduced EF on repeat echo Still on amiodarone, in a flutter on my exam Possible cardioversion today Cardioogy to reach out to today per Anh FRITZ on CKD Creatinine stable Trend with lasix but so far tolerating well HTN HLD PAD Continue home meds as able Hypothyroidism Continue home synthroid TSH slightly low so decreased to 125mcg Synthroid DVT ppx: Eliquis Critical Care Critically Ill Patient Diagnosis/Problems Diagnosis/Problems (1) Atrial fibrillation with rapid ventricular response Status: Acute (2) Renal insufficiency Status: Acute (3) PAD (peripheral artery disease) (4) CAD (coronary artery disease) (5) Hyperlipidemia MOISÉS BARROW MD Aug 30, 2021 08:51
[2021-08-30] MEDS: APIXABAN 5 MG (ELIQUIS) TABLET PO SCH ×2 (09:26→20:24)
[2021-08-30] MEDS: meTOproloL SUCCINATE 50 MG (TOPROL XL) TAB PO SCH (09:26)
[2021-08-30] MEDS: AMIODARONE 200 MG (CORDARONE) TAB PO SCH ×2 (09:26→20:24)
[2021-08-30] MEDS: FUROSEMIDE 40 MG/4 ML INJ (LASIX) IVP SCH (09:26)
[2021-08-30] MEDS ORDERED: NS IV 1000 ML 1,000 ML ONE (11:59)
[2021-08-30] MEDS ORDERED: proPOfol 200 MG/20 ML (DIPRIVAN) VIAL IV ONE (12:23)
[2021-08-30] MEDS ORDERED: MIDAZOLAM 2 MG/2 ML (VERSED) VIAL ONE (12:30)
--- NOTE | 2021-08-30 13:36 | Anesthesia-General Post-Op ---
MAC Patient Condition Mental Status/LOC: Same as Preop Cardiovascular: Satisfactory Nausea/Vomiting: Absent Respiratory: Satisfactory Pain: Controlled Complications: Absent Post Op Complications Complications None Follow Up Care/Instructions Patient Instructions None needed. Anesthesiology Discharge Order Discharge Order Patient is doing well, no complaints, stable vital signs, no apparent adverse anesthesia problems. No complications reported per nursing. CHIP MAR CRNA Aug 30, 2021 13:36
--- NOTE | 2021-08-30 13:49 | Progress Note - Cardiology ---
Cardiology SOAP Progress Note Subjective: Gen malaise Shortness of breath with mild mod activity No palp No n/v/d No syncope Objective: I&O/Vital Signs 08/30/21 08/30/21 08/30/21 08/30/21 04:14 07:00 07:28 08:00 Temp 36.4 Pulse 111 103 94 Resp 18 26 B/P (MAP) 104/92 154/79 Pulse Ox 96 96 93 O2 Delivery Room Air Room Air Room Air 08/30/21 08/30/21 08/30/21 08/30/21 08:50 09:00 10:17 12:04 Temp 35.9 35.8 Pulse 113 100 Resp 20 20 B/P (MAP) 84/81 103/82 Pulse Ox 95 97 98 97 O2 Delivery Room Air Room Air Room Air Room Air 08/30/21 08/30/21 08/30/21 08/30/21 12:44 12:44 12:46 12:52 Pulse 89 70 71 Resp 16 12 12 B/P (MAP) 113/71 81/71 97/74 Pulse Ox 94 94 94 90 O2 Delivery OxyMask OxyMask OxyMask OxyMask O2 Flow Rate 10.00 10.00 10.00 10.00 08/30/21 08/30/21 08/30/21 08/30/21 13:00 13:12 13:24 13:29 Pulse 68 71 72 70 Resp 16 16 16 16 B/P (MAP) 83/63 108/71 108/71 114/73 Pulse Ox 99 96 98 97 O2 Delivery OxyMask OxyMask Room Air Room Air O2 Flow Rate 10.00 4.00 08/30/21 00:00 Intake Total 1350 ml Balance 1350 ml Weight (Pounds): 232 Weight (Ounces): 0.0 Weight (Calculated Kilograms): 105.207228 Constitutional: well-developed, well-nourished, other (speech is slurred at times, appears mildly confused at times) Respiratory: No accessory muscle use; other (scattered rhonchi, exp wheezes, somewhat diminished air entry) Cardiovascular: irregularly irregular, S1 and S2, systolic murmur (soft KADEN at card base) Gastrointestional: No tender; soft; No guarding, No rebound; audible bowel sounds Extremities: No cyanosis, No significant edema Neurologic/Psychiatric: oriented x 3 (conversation in-appropriate to situation at times - re-orients easily), other (moves all limbs equally) Skin: No rash on exposed areas, No ulcerations on exposed areas Results/Procedures: Labs Laboratory Tests 08/30/21 05:15: White Blood Count 8.9, Red Blood Count 5.38, Hemoglobin 14.9, Hematocrit 45, Mean Corpuscular Volume 84, Mean Corpuscular Hemoglobin 28, Mean Corpuscular Hemoglobin Concent 33, Red Cell Distribution Width 14.6H, Platelet Count 217, Mean Platelet Volume 10.9, Immature Granulocyte % (Auto) 0, Neutrophils (%) (Au to) 70, Lymphocytes (%) (Auto) 14, Monocytes (%) (Auto) 12, Eosinophils (%) (Auto) 4, Basophils (%) (Auto) 0, Neutrophils # (Auto) 6.2, Lymphocytes # (Auto) 1.2, Monocytes # (Auto) 1.0, Eosinophils # (Auto) 0.4H, Basophils # (Auto) 0.0, Immature Granulocyte # (Auto) 0.0, Sodium Level 138, Potassium Level 4.2, Chloride Level 103, Carbon Dioxide Level 20L, Anion Gap 15H, Blood Urea Nitrogen 29H, Creatinine 1.60H, Estimat Glomerular Filtration Rate 53, BUN/Creatinine Ratio 18, Glucose Level 123H, Calcium Level 9.0, Corrected Calcium 9.1, Phosphorus Level 3.8, Magnesium Level 1.8, Total Bilirubin 0.8, Aspartate Amino Transf (AST/SGOT) 23, Alanine Aminotransferase (ALT/SGPT) 32, Alkaline Phosphatase 44, Total Protein 6.9, Albumin 3.9 Microbiology 08/25/21 MRSA Screen - Final, Complete MRSA not isolated A/P: Assessment: SSS with PAF - PAFlutter documented on an ECG of 09/05/17 at [facility]. Asa (with junctional competition) documented on an ECG of 09/07/17 - continuing A Fib during this admission of Aug 2021, very difficult to control despite multiple agents - s/p NSR after elec cardioversion on 08/30/21 6 beat run of WCT on the morning of 08-29-21 while up in room - Amiodarone gtt started on 08-29-21 - continues to infuse Acute systolic CHF due to new onset of cardiomyopathy - Echo of 08/25/21: LVEF 25-30% (significantly lower compared to echo of 2019 that showed EF 60-65%), moderate diffuse hypokinesis, mod dilatation of LA and RA, mod to severe MR, mod TR, PASP 35 - 40 mmHg - Echo of 08/28/21: LVEF 25-30%, mod MR, mod enlargement of LV and atria, Pasp 30-35 mmHg Ac renal failure, likely related to CHF / low CO, improving with treatment of heart failure Leg claudication and PAD: -Severe PAD diagnosed on an abd ao CTA on 09/05/17 at [facility]: complete occ of R SFA, single vessel runoff in thee R calf and in the L calf. - Has had PCI to the R leg by Dr Matta at [place], [place] on 09/10/17. Has followed with Dr Bernard at [facility]. - Has undergone further PAD intervention on 04/01/21 on the R leg with and is awaiting intervention on the L leg with Dr Bernard Carotid u/s of 11/14/18 showed mild bilat carotid dz CAD -Abnormal stress test on 09/25/17 showed a small amount of basal inf ischemia and LVEF 47%. - Subsequent cardiac cath of Nov 06, 2017 showed angiographically mild CAD. LVEF 55-60%. Normal LVEDP. Mild calcification of the aortic arch. No significant mitral regurg. - Repeat MPI of 12/02/19 shows the small amount of basal inf-lat ischemia (essentially the same finding as in Sep 2017) that has already been investigated with cath described above KRISTINA - treated with CPAP Tobacco use, chronic, quit on 09/10/17 Impaired fasting glucose Hypothyroidism, treated with thyroid replacement by his pcp, Dr Martinez Fam h/o CAD (brothers at age younger than 60) CTA of 09/05/17 also showed bilat inguinal hernias containing only fat, bilat hydrocele. prostate enlargement and urinary bladder wall thickening, umbilical hernia containing only fat BP difference of approx 20 mmHg from right arm to left arm on an office visit in 2018. CT angio of 05/09/18 was reported to be a poor study, but did not report any significant stenosis. No significant bp diff today Plan: * Complex management * Continue amiodarone * Continue diuretics and regimen of vent rate control and for dilated cardiomyopathy * Not suitable for BRANDON-inhib or ARB due to renal failure and hyperkalemia * Ext elec CV performed today after he provided informed consent -> NSR * Life Vest * Discussed plan of care and answered 's questions in detail (Liliam) YULIYA CAMACHO MD FACP FAC CCDS Aug 30, 2021 13:49
[2021-08-30] MEDS: FUROSEMIDE 40 MG (LASIX) TAB PO SCH (16:56)
--- NOTE | 2021-08-30 22:23 | OPERATIVE REPORT ---
DATE OF SERVICE: PREOPERATIVE DIAGNOSIS: Atrial fibrillation. POSTOPERATIVE DIAGNOSIS: Sinus rhythm. PROCEDURE PERFORMED: External electrical cardioversion. INDICATIONS: The patient is a 65-year-old gentleman with a history of paroxysmal atrial fibrillation for several years. He has been compliant with anticoagulation for more than a year. He presents with atrial fibrillation that remains difficult to control. Anticoagulation has been continued. DESCRIPTION OF PROCEDURE: External electrical cardioversion was carried out today after having obtained an informed consent. The nurse monogram and letter paster provided short acting anesthesia. A 120 joules of synchronized shock was delivered through external patches. This converted atrial fibrillation to sinus rhythm. He tolerated the procedure well. Job ID: [id number] DocumentID: [id number] Dictated Date: 08/30/2021 12:49:41 Meat Blender Date: 08/30/2021 22:23:05 Dictated By: YULIYA CAMACHO MD, MA, FACP, FACC,
[2021-08-31] MEDS: FUROSEMIDE 40 MG (LASIX) TAB PO SCH (06:08)
[2021-08-31] MEDS: LEVOTHYROXINE 125 MCG (LEVOTHROID) TABLET PO SCH (06:08)
[2021-08-31 06:40] LABS: BASOPHILS % (AUTO) 0 % (0-10); EOSINOPHILS # (AUTO) 0.4 10^3/uL (0.0-0.3); EOSINOPHILS % (AUTO) 5 % (0-10); HEMATOCRIT 44 % (40-54); HEMOGLOBIN 14.3 g/dL (13.3-17.7); LYMPHOCYTES # (AUTO) 1.4 10^3/uL (1.0-4.0); LYMPHOCYTES % (AUTO) 18 % (12-44); MEAN CORPUSCULAR HEMOGLOBIN 27 pg (25-34); MEAN CORPUSCULAR HGB CONC 33 g/dL (32-36); MEAN CORPUSCULAR VOLUME 83 fL (80-99); MEAN PLATELET VOLUME 10.7 fL (9.0-12.2); MONOCYTES # (AUTO) 0.9 10^3/uL (0.0-1.0); MONOCYTES % (AUTO) 11 % (0-12); NEUTROPHILS # (AUTO) 5.1 10^3/uL (1.8-7.8); NEUTROPHILS % (AUTO) 65 % (42-75); PLATELET COUNT 226 10^3/uL (130-400); WHITE BLOOD COUNT 7.8 10^3/uL (4.3-11.0)
[2021-08-31 07:06] LABS: ALBUMIN 3.9 GM/DL (3.2-4.5); BILIRUBIN,TOTAL 0.7 MG/DL (0.1-1.0); CALCIUM 9.2 MG/DL (8.5-10.1); CREATININE SERUM 1.9 MG/DL (0.60-1.30); MAGNESIUM 1.8 MG/DL (1.6-2.4); PHOSPHORUS 3.7 MG/DL (2.3-4.7); POTASSIUM 4.3 MMOL/L (3.6-5.0)
[2021-08-31] MEDS: RT-ALBUTEROL/IPRATROPIUM 3 ML (DUONEB) VIAL INH SCH ×2 (07:23→11:05)
[2021-08-31] MEDS: APIXABAN 5 MG (ELIQUIS) TABLET PO SCH (07:57)
[2021-08-31] MEDS: ACETAMINOPHEN 500 MG TAB (TYLENOL) PO PRN (07:58)
[2021-08-31] MEDS: AMIODARONE 200 MG (CORDARONE) TAB PO SCH (07:58)
[2021-08-31] MEDS: meTOproloL SUCCINATE 50 MG (TOPROL XL) TAB PO SCH (08:01)
--- NOTE | 2021-08-31 08:21 | Discharge Summary ---
Diagnosis/Chief Complaint Date of Admission Aug 25, 2021 at 16:12 Date of Discharge Discharge Date: Aug 29, 2021 Admission Diagnosis A-fib with RVR Primary Care Dipak Martinez MD Discharge Diagnosis (1) Atrial fibrillation with rapid ventricular response Status: Acute (2) Renal insufficiency Status: Acute (3) PAD (peripheral artery disease) (4) CAD (coronary artery disease) (5) Hyperlipidemia Discharge Summary Discharge Physical Exam Allergies: Coded Allergies: No Known Drug Allergies (Unverified , 11/06/17) Vitals & I&Os Vital Signs Date Time Temp Pulse Resp B/P (MAP) Pulse Ox O2 Delivery O2 Flow Rate FiO2 08/31/21 07:42 35.4 71 19 115/78 93 Room Air 08/30/21 13:12 4.00 08/26/21 09:33 21 General Appearance: No Apparent Distress, WD/WN Respiratory: Lungs Clear, No Respiratory Distress Cardiovascular: Regular Rate, Rhythm, No Murmur Neurologic/Psychiatric: Alert, Oriented x3 Hospital Course Patient was admitted to the hospital secondary to acutely decompensated systolic heart failure due to atrial fibrillation with rapid ventricular rate. He was diuresed with Lasix and did well. He was treated with IV Cardizem drip and did well and was able to be switched to oral Cardizem. He did have an episode of ventricular tachycardia noted on telemetry and metoprolol was added. Despite this he had recurrent episodes of nonsustained v-tach and required amiodarone. He then underwent cardioversion with Dr Brooks and did well. He converted to sinus rhythm and he had no further issues following that. Echo revealed an EF of 25% and a LifeVest was arranged prior to discharge. He was seen in consultation by his primary payment collector Dr. Brooks and is to follow-up with him after he gets out of the hospital. He is to follow up with Dr Martinez as well. Labs (last 24 hrs) Laboratory Tests 08/31/21 05:50: White Blood Count 7.8, Red Blood Count 5.26, Hemoglobin 14.3, Hematocrit 44, Mean Corpuscular Volume 83, Mean Corpuscular Hemoglobin 27, Mean Corpuscular Hemoglobin Concent 33, Red Cell Distribution Width 14.4, Platelet Count 226, Mean Platelet Volume 10.7, Immature Granulocyte % (Auto) 0, Neutrophils (%) (Auto) 65, Lymphocytes (%) (Auto) 18, Monocytes (%) (Auto) 11, Eosinophils (%) (Auto) 5, Basophils (%) (Auto) 0, Neutrophils # (Auto) 5.1, Lymphocytes # (Auto) 1.4, Monocytes # (Auto) 0.9, Eosinophils # (Auto) 0.4H, Basophils # (Auto) 0.0, Immature Granulocyte # (Auto) 0.0, Sodium Level 139, Potassium Level 4.3, Chloride Level 104, Carbon Dioxide Level 21, Anion Gap 14, Blood Urea Nitrogen 32H, Creatinine 1.90H, Estimat Glomerular Filtration Rate 43, BUN/Creatinine Ratio 17, Glucose Level 110H, Calcium Level 9.2, Corrected Calcium 9.3, Phosphorus Level 3.7, Magnesium Level 1.8, Total Bilirubin 0.7, Aspartate Amino Transf (AST/SGOT) 19, Alanine Aminotransferase (ALT/SGPT) 28, Alkaline Phosphatase 51, Total Protein 7.0, Albumin 3.9 Microbiology 08/25/21 MRSA Screen - Final, Complete MRSA not isolated Patient resulted labs reviewed. Pending Labs Laboratory Tests 08/31/21 05:50: White Blood Count 7.8, Red Blood Count 5.26, Hemoglobin 14.3, Hematocrit 44, Mean Corpuscular Volume 83, Mean Corpuscular Hemoglobin 27, Mean Corpuscular Hemoglobin Concent 33, Red Cell Distribution Width 14.4, Platelet Count 226, Mean Platelet Volume 10.7, Immature Granulocyte % (Auto) 0, Neutrophils (%) (Auto) 65, Lymphocytes (%) (Auto) 18, Monocytes (%) (Auto) 11, Eosinophils (%) (Auto) 5, Basophils (%) (Auto) 0, Neutrophils # (Auto) 5.1, Lymphocytes # (Auto) 1.4, Monocytes # (Auto) 0.9, Eosinophils # (Auto) 0.4, Basophils # (Auto) 0.0, Immature Granulocyte # (Auto) 0.0, Sodium Level 139, Potassium Level 4.3, Chloride Level 104, Carbon Dioxide Level 21, Anion Gap 14, Blood Urea Nitrogen 32, Creatinine 1.90, Estimat Glomerular Filtration Rate 43, BUN/Creatinine Ratio 17, Glucose Level 110, Calcium Level 9.2, Corrected Calcium 9.3, Phosphorus L evel 3.7, Magnesium Level 1.8, Total Bilirubin 0.7, Aspartate Amino Transf (AST/SGOT) 19, Alanine Aminotransferase (ALT/SGPT) 28, Alkaline Phosphatase 51, Total Protein 7.0, Albumin 3.9 Imaging: Reviewed Imaging Report Discussion & Recommendations Discharge Planning: >30 minutes discharge planning Discharge Home Medications: Active Scripts Active Reported Tylenol Extra Strength (Acetaminophen) 500 Mg Tablet 1,000 Mg PO Q8H PRN Carvedilol 3.125 Mg Tablet 3.125 Mg PO BID Atorvastatin Calcium 20 Mg Tablet 20 Mg PO HS Clopidogrel (Clopidogrel Bisulfate) 75 Mg Tablet 75 Mg PO DAILY Euthyrox (Levothyroxine Sodium) 150 Mcg Tablet 150 Mcg PO DAILY Diltiazem 24Hr ER (Diltiazem HCl) 120 Mg Cap.er.24h 120 Mg PO HS Eliquis (Apixaban) 5 Mg Tablet 5 Mg PO BID Instructions to patient/family Please see electronic discharge instructions given to patient. MOISÉS BARROW MD Aug 31, 2021 08:21
--- NOTE | 2021-08-31 08:24 | Discharge Inst-Simple/Standard ---
Discharge Inst-Standard Discharge Medications New, Converted or Re-Newed RX: Transmitted to Pharmacy Patient Instructions/Follow Up Plan of Care/Instructions/FU: Please continue to take your medicatiosn as written. Please follow up with your primary care doctor and Dr Brooks to follow up this hospital stay. Activity as Tolerated: Yes Discharge Diet: Cardiac Diet Return to The Hospital For: Chest pain, shortness of breath, heart racing, leg swelling, if you feel you are getting worse. MOISÉS BARROW MD Aug 31, 2021 08:24
[2021-08-31] MEDS ORDERED: METO50TA7 PO (10:21)
[2021-08-31] MEDS ORDERED: FURO40TA4 PO (10:21)
[2021-08-31] MEDS ORDERED: AMIO400T5 PO (10:21)
[2021-08-31] MEDS ORDERED: DILT240C91 PO (10:21)
[2021-08-31] MEDS ORDERED: LEVO125T PO (11:11)
[2021-08-31 11:45] VITALS: BP 115/78
--- NOTE | 2021-08-31 11:56 | Progress Note - Cardiology ---
Cardiology SOAP Progress Note Subjective: No cp or palp or syncope Shortness of breath has improved No n/v/d Some gen weakness, improving Objective: I&O/Vital Signs 08/30/21 08/31/21 08/31/21 08/31/21 23:51 01:00 04:10 07:00 Temp 37.0 Pulse 80 66 78 70 Resp 18 18 B/P (MAP) 130/103 122/80 Pulse Ox 97 96 O2 Delivery Room Air Room Air 08/31/21 08/31/21 07:42 11:05 Temp 35.4 Pulse 71 Resp 19 B/P (MAP) 115/78 Pulse Ox 93 97 O2 Delivery Room Air Room Air 08/31/21 00:00 Intake Total 1560 ml Balance 1560 ml Weight (Pounds): 232 Weight (Ounces): 0.0 Weight (Calculated Kilograms): [id number] Constitutional: well-developed, well-nourished, other (speech is slurred at times, appears mildly confused at times) Respiratory: No accessory muscle use; other (scattered rhonchi, exp wheezes, somewhat diminished air entry) Cardiovascular: irregularly irregular, S1 and S2, systolic murmur (soft KADEN at card base) Gastrointestional: No tender; soft; No guarding, No rebound; audible bowel sounds Extremities: No cyanosis, No significant edema Neurologic/Psychiatric: oriented x 3 (conversation in-appropriate to situation at times - re-orients easily), other (moves all limbs equally) Skin: No rash on exposed areas, No ulcerations on exposed areas Results/Procedures: Labs Laboratory Tests 08/31/21 05:50: White Blood Count 7.8, Red Blood Count 5.26, Hemoglobin 14.3, Hematocrit 44, Mean Corpuscular Volume 83, Mean Corpuscular Hemoglobin 27, Mean Corpuscular Hemoglobin Concent 33, Red Cell Distribution Width 14.4, Platelet Count 226, Mean Platelet Volume 10.7, Immature Granulocyte % (Auto) 0, Neutrophils (%) (Auto) 65, Lymphocytes (%) (Auto) 18, Monocytes (%) (Auto) 11, Eosinophils (%) (Auto) 5, Basophils (%) (Auto) 0, Neutrophils # (Auto) 5.1, Lymphocytes # (Auto) 1.4, Monocytes # (Auto) 0.9, Eosinophils # (Auto) 0.4H, Basophils # (Auto) 0.0, Immature Granulocyte # (Auto) 0.0, Sodium Level 139, Potassium Level 4.3, Chloride Level 104, Carbon Dioxide Level 21, Anion Gap 14, Blood Urea Nitrogen 32H, Creatinine 1.90H, Estimat Glomerular Filtration Rate 43, BUN/Creatinine Ratio 17, Glucose Level 110H, Calcium Level 9.2, Corrected Calcium 9.3, Phosphorus Level 3.7, Magnesium Level 1.8, Total Bilirubin 0.7, Aspartate Amino Transf (AST/SGOT) 19, Alanine Aminotransferase (ALT/SGPT) 28, Alkaline Phosphatase 51, Total Protein 7.0, Albumin 3.9 Microbiology 08/25/21 MRSA Screen - Final, Complete MRSA not isolated Laboratory Tests 08/30/21 05:15 08/31/21 05:50 A/P: Assessment: SSS with PAF - PAFlutter documented on an ECG of 09/05/[address] [facility]. S Asa (with junctional competition) documented on an ECG of 09/07/17 - continuing A Fib during this admission of Aug 2021, very difficult to control despite multiple agents - NSR after elec cardioversion on 08/30/21 6 beat run of WCT on the morning of 08-29-21 while up in room - treated with iv and then oral amiodarone Acute systolic CHF due to new onset of cardiomyopathy - Echo of 08/25/21: LVEF 25-30% (significantly lower compared to echo of 2019 that showed EF 60-65%), moderate diffuse hypokinesis, mod dilatation of LA and RA, mod to severe MR, mod TR, PASP 35 - 40 mmHg - Echo of 08/28/21: LVEF 25-30%, mod MR, mod enlargement of LV and atria, Pasp 30-35 mmHg Ac renal failure, likely related to CHF / low CO, improving with treatment of heart failure Leg claudication and PAD: - Severe PAD diagnosed on an abd ao CTA on 09/05/17 at [facility]: complete occ of R SFA, single vessel runoff in thee R calf and in the L calf. - Has had PCI to the R leg by Dr Matta at [facility] [place] on 09/10/17. Has followed with Dr Bernard at [facility]. - Has undergone further PAD intervention on 04/01/21 on the R leg with and is awaiting intervention on the L leg with Dr Bernard Carotid u/s of 11/14/18 showed mild bilat carotid dz CAD -Abnormal stress test on 09/25/17 showed a small amount of basal inf ischemia and LVEF 47%. - Subsequent cardiac cath of Nov 06, 2017 showed angiographically mild CAD. LVEF 55-60%. Normal LVEDP. Mild calcification of the aortic arch. No significant mitral regurg. - Repeat MPI of 12/02/19 shows the small amount of basal inf-lat ischemia (essentially the same finding as in Sep 2017) that has already been investigated with cath described above KRISTINA - treated with CPAP Tobacco use, chronic, quit on 09/10/17 Impaired fasting glucose Hypothyroidism, treated with thyroid replacement by his pcp, Dr Martinez Fam h/o CAD (brothers at age younger than 60) CTA of 09/05/17 also showed bilat inguinal hernias containing only fat, bilat hydrocele. prostate enlargement and urinary bladder wall thickening, umbilical hernia containing only fat BP difference of approx 20 mmHg from right arm to left arm on an office visit in 2017. CT angio of 05/09/18 was reported to be a poor study, but did not report any significant stenosis Plan: * Continue current regimen * Life Vest * Outpt f/u advised * Discussed management of CV issues and CHF YULIYA CAMACHO MD FACP [facility] Aug 31, 2021 11:56
== END 2021-08-31 11:45 | disposition home or self-care (01) | DRG 291 ==
LOC: EDUNIT# 11:26 → ER FS 11:28 → ICU 16:12 → CSD 08-28 13:27
PROVIDERS: ADMIT Family Medicine; ATTEND Family Medicine
PROC: 5A09357 Assistance with Respiratory Ventilation, Less than 24 Consecutive Hours, Continuous Positive Airway Pressure (ICD-10-PCS; 2021-08-25)
PROC: 5A2204Z Restoration of Cardiac Rhythm, Single (ICD-10-PCS; principal; 2021-08-30)
DX: I13.0 Hypertensive heart and chronic kidney disease with heart failure and stage 1 through stage 4 chronic kidney disease, or unspecified chronic kidney disease (principal); I50.21 Acute systolic (congestive) heart failure; J96.01 Acute respiratory failure with hypoxia; N17.9 Acute kidney failure, unspecified; I47.2 Ventricular tachycardia; I48.92 Unspecified atrial flutter; I48.0 Paroxysmal atrial fibrillation; N18.9 Chronic kidney disease, unspecified; E86.0 Dehydration; Z79.01 Long term (current) use of anticoagulants; I49.5 Sick sinus syndrome; R05.9 Cough, unspecified; I25.10 Atherosclerotic heart disease of native coronary artery without angina pectoris; R19.7 Diarrhea, unspecified; G47.33 Obstructive sleep apnea (adult) (pediatric); I27.20 Pulmonary hypertension, unspecified; E78.5 Hyperlipidemia, unspecified; I08.1 Rheumatic disorders of both mitral and tricuspid valves; Z95.5 Presence of coronary angioplasty implant and graft; Z87.891 Personal history of nicotine dependence; I77.9 Disorder of arteries and arterioles, unspecified; R73.01 Impaired fasting glucose; E03.9 Hypothyroidism, unspecified; Z82.49 Family history of ischemic heart disease and other diseases of the circulatory system
CPT/HCPCS: 36415; 71045; 80053; 81000; 83735; 83880; 84100; 84443; 84484; 85025; 85610; 85730; 86141; 87081; 87328; 92960; 93005; 93306; 94640; 94660; 94760; 96374

== ENCOUNTER → 2021-09-05 | Outpatient (CLI) | payer MEDICARE ==
[~2021-09-05] MED LIST changes: +ACET-2267 PO; +AMIO400T5 PO; +CARV3.122 PO; +CLOP75TA28 PO; +DILT-27 PO; +DILT240C91 PO; +FURO40TA4 PO; +LEVO125T PO; +LEVO150T96 PO; +METO50TA7 PO
[2021-09-05 14:21] LABS: POTASSIUM 4.4 MMOL/L (3.6-5.0)
[2021-09-05 14:22] LABS: CALCIUM 9.2 MG/DL (8.5-10.1); CREATININE SERUM 2.62 MG/DL (0.60-1.30); MAGNESIUM 1.9 MG/DL (1.6-2.4)
== END ==
LOC: LAB FS 13:27
PROVIDERS: ATTEND Nurse Practitioner Family
DX: I48.91 Unspecified atrial fibrillation (principal); I50.9 Heart failure, unspecified
CPT/HCPCS: 36415; 80048; 83735

== ENCOUNTER → 2021-09-12 | Outpatient (CLI) | payer MEDICARE ==
[2021-09-12 10:42] LABS: POTASSIUM 4.8 MMOL/L (3.6-5.0)
[2021-09-12 10:43] LABS: BILIRUBIN,TOTAL 0.4 MG/DL (0.1-1.0); CALCIUM 9.5 MG/DL (8.5-10.1); CREATININE SERUM 2.12 MG/DL (0.60-1.30); MAGNESIUM 2.1 MG/DL (1.6-2.4); TOTAL PROTEIN 7.5 GM/DL (6.4-8.2)
[2021-09-12 10:44] LABS: ALBUMIN 4.1 GM/DL (3.2-4.5); HEMOGLOBIN 14.1 g/dL (13.3-17.7); MEAN CORPUSCULAR HEMOGLOBIN 28 pg (25-34); WHITE BLOOD COUNT 6.5 10^3/uL (4.3-11.0)
[2021-09-12 10:45] LABS: EOSINOPHILS % (AUTO) 3 % (0-10); HEMATOCRIT 44 % (40-54); LYMPHOCYTES % (AUTO) 17 % (12-44); MEAN CORPUSCULAR HGB CONC 32 g/dL (32-36); MEAN CORPUSCULAR VOLUME 86 fL (80-99); MONOCYTES % (AUTO) 9 % (0-12); NEUTROPHILS % (AUTO) 71 % (42-75); PLATELET COUNT 183 10^3/uL (130-400)
[2021-09-12 11:00] LABS: BASOPHILS % (AUTO) 0 % (0-10); EOSINOPHILS # (AUTO) 0.2 10^3/uL (0.0-0.3); LYMPHOCYTES # (AUTO) 1.1 X 10^3 (1.0-4.0); MONOCYTES # (AUTO) 0.6 X 10^3 (0.0-1.0); NEUTROPHILS # (AUTO) 4.6 X 10^3 (1.8-7.8)
== END ==
LOC: LAB FS 08:43
PROVIDERS: ATTEND Internal Medicine Cardiovascular Disease
DX: I50.21 Acute systolic (congestive) heart failure (principal)
CPT/HCPCS: 36415; 80053; 83735; 83880; 85025

== ENCOUNTER → 2021-09-19 | Outpatient (CLI) | payer MEDICARE ==
[2021-09-19 08:32] LABS: POTASSIUM 4.5 MMOL/L (3.6-5.0)
[2021-09-19 08:35] LABS: CALCIUM 9.3 MG/DL (8.5-10.1); CREATININE SERUM 2.07 MG/DL (0.60-1.30)
== END ==
LOC: LAB FS 07:15
PROVIDERS: ATTEND Nurse Practitioner Family
DX: N18.30 Chronic kidney disease, stage 3 unspecified (principal)
CPT/HCPCS: 36415; 80048; 83735

== ENCOUNTER → 2021-11-03 | Outpatient (CLI) | payer MEDICARE ==
--- NOTE | 2021-11-03 09:00 | Diagnostic Imaging Report ---
INDICATION: Fall with left knee pain. TIME OF EXAM: 8:30 AM 3 views of the left knee demonstrate normal alignment. Joint spaces are well maintained. The articular surfaces are smooth. No fracture, dislocation or effusion is identified. IMPRESSION: No acute bony abnormality is detected. Dictated by: Dictated on workstation # [id number]
--- NOTE | 2021-11-03 09:58 | Diagnostic Imaging Report ---
INDICATION: Pain in the left 2nd finger. TIME OF EXAM: 9:01 AM FINDINGS: Three views of the left 2nd finger were obtained. There is a fracture at the base of the distal phalanx of the 2nd finger. The fracture appears to extend to the articular surface of the distal interphalangeal joint. The proximal and middle phalanx of 2nd finger are intact. The visualized metacarpals are intact IMPRESSION: There is a fracture at the base of the distal phalanx of the 2nd finger with intra-articular extension. No significant displacement or angulation is seen. Dictated by: Dictated on workstation # [id number]
== END ==
LOC: RAD FS 08:23
PROVIDERS: ATTEND Nurse Practitioner
DX: S62.631A Displaced fracture of distal phalanx of left index finger, initial encounter for closed fracture (principal); S82.092A Other fracture of left patella, initial encounter for closed fracture; W19.XXXA Unspecified fall, initial encounter
CPT/HCPCS: 73140; 73562

== ENCOUNTER → 2021-11-28 | Outpatient (CLI) | payer MEDICARE ==
--- NOTE | 2021-11-28 08:43 | Diagnostic Imaging Report ---
INDICATION: Pain to middle finger. Trauma. Comparison with 11/03/2021. FINDINGS: The fracture along the base of the distal phalanx shows some callus formation developing and unchanged in position. There is now a fracture along the base of the middle phalanx on the volar side involving the articulating surface. The MP joint appears normal. IMPRESSION: 1. Healing fracture of the distal phalanx. Moderate arthritic changes of the DIP joint. 2. There is a fracture of the base of the middle phalanx now on the volar side involving articulating surface. Dictated by: Dictated on workstation # [id number]
== END ==
LOC: RAD FS 08:19
PROVIDERS: ATTEND Nurse Practitioner
DX: S62.633D Displaced fracture of distal phalanx of left middle finger, subsequent encounter for fracture with routine healing (principal); S62.621D Displaced fracture of middle phalanx of left index finger, subsequent encounter for fracture with routine healing; M19.042 Primary osteoarthritis, left hand; X58.XXXD Exposure to other specified factors, subsequent encounter
CPT/HCPCS: 73140

== ENCOUNTER → 2021-12-05 | Outpatient (CLI) | payer MEDICARE | LOC: CARD 09:13 | PROVIDERS: ATTEND Nurse Practitioner Family | DX: I42.0 Dilated cardiomyopathy (principal); I08.1 Rheumatic disorders of both mitral and tricuspid valves | CPT/HCPCS: 93306 ==

== ENCOUNTER → 2022-01-13 | Outpatient (CLI) | payer MEDICARE ==
[~2022-01-13] VITALS: Ht 187 cm; Wt 112.0 kg
[~2022-01-13] MED LIST changes: +CATHETER FLUSH 10 ML SYR IVP PRN; +REGADENOSON 0.4 MG/5 ML SYR (LEXISCAN) IV ONE
[2022-01-13 09:08] VITALS: BP 152/85
--- NOTE | 2022-01-16 12:43 | STRESS TEST ---
DATE OF SERVICE: 01/13/2022 RESTING AND POST REGADENOSON TECHNETIUM-99M TETROFOSMIN SPECT CT IMAGING ORDERING PHYSICIAN: Dr. Brooks. PRIMARY PHYSICIAN: Dr. Martinez. CLINICAL DIAGNOSIS: Dilated cardiomyopathy. Baseline images were carried out after injection of 10.05 mCi of technetium-99m Tetrofosmin. This was followed by 0.4 mg regadenoson and 29.8 mCi of technetium-99m Tetrofosmin for stress imaging. The electrocardiogram showed sinus bradycardia with nonspecific ST and T-wave abnormality that did not change significantly with the regadenoson infusion. He noted some shortness of breath following regadenoson infusion, which resolved in a few minutes. Review of images at rest and following stress does not indicate any distinct perfusion defects consistent with significant myocardial ischemia or infarction. Gated images show mild to moderate global hypokinesis. Left ventricular ejection fraction is 41%. Left ventricular end-diastolic volume is 205 mL. TID is absent (1.03). CONCLUSIONS: Dilated cardiomyopathy with moderate to severe cardiomegaly and moderate global hypokinesis and a calculated ejection fraction of 41%. Job ID: [id number] DocumentID: [id number] Dictated Date: 01/16/2022 09:52:30 Credentials Specialist Date: 01/16/2022 12:42:51 Dictated By: YULIYA BROOKS MD, MA, FACP, FACC,
== END ==
LOC: CARD 08:00
PROVIDERS: ATTEND Internal Medicine Cardiovascular Disease
DX: I42.0 Dilated cardiomyopathy (principal)
CPT/HCPCS: 78452; 93017; A9502

== ENCOUNTER 2022-01-30 12:14 | Outpatient (CLI) | payer MEDICARE ==
[~2022-01-30 12:14] MED LIST changes: -CATHETER FLUSH 10 ML SYR IVP PRN; -REGADENOSON 0.4 MG/5 ML SYR (LEXISCAN) IV ONE
== END 2022-01-30 12:33 ==
LOC: SLEEP 12:14
PROVIDERS: ATTEND Otolaryngology Otolaryngology/Facial Plastic Surgery
DX: G47.33 Obstructive sleep apnea (adult) (pediatric) (principal)
CPT/HCPCS: G0399

== ENCOUNTER → 2022-03-22 | Outpatient (CLI) | payer MEDICARE ==
--- NOTE | 2022-03-22 13:21 | Diagnostic Imaging Report ---
PROCEDURE: US Renal Bilateral. TECHNIQUE: Multiple real-time grayscale images were obtained over the kidneys in various projections bilaterally. INDICATION: Chronic kidney disease stage IIIB hypertension. The right kidney measures 9.3 x 6.2 x 5.4 cm and the left kidney measures 10.8 x 4.5 x 5.8 cm. There are numerous cortical hypoechogenicities involving bilateral kidneys. There appears to be a cyst in the lower pole right kidney measuring 2.4 x 1.3 x 1.8 cm. A 2nd cyst in the lower pole measures approximately 1.6 x 1.7 x 1.7 cm. There is an area of hypoechogenicity in the mid right kidney at the cortex measuring 4.5 x 3.1 x 2.7 cm. Its uncertain if this represents a focal mass versus an area of cortical lobulation. Additional hypoechogenicity more upper pole right kidney is seen measuring 2.2 x 1.9 x 2.8 cm, indeterminate. Left kidney does contain a cyst in the mid upper pole approximately 2.1 x 1.5 x 1.5 cm. 2nd cyst measures 1.3 x 1.3 x 1.0 cm in the mid to lower pole. There is indeterminate hypoechogenicity lower pole left kidney approximately 9 mm in size. No calculi or hydronephrosis is seen. Bladder is unremarkable. The right ureteral jet was visualized. Left ureteral jet was not visualized. IMPRESSION: 1. Bilateral cortical lesions, many of which appear to be cysts. However, there is some cortical hypoechogenicities in the right kidney which are considered indeterminate between areas of cortical lobulation versus solid mass. MRI would be useful for further characterization. There is no calculi or hydronephrosis detected. Dictated by: Dictated on workstation # [id number]
== END ==
LOC: RAD 09:47
PROVIDERS: ATTEND Internal Medicine Nephrology
DX: I12.9 Hypertensive chronic kidney disease with stage 1 through stage 4 chronic kidney disease, or unspecified chronic kidney disease (principal); N18.32 Chronic kidney disease, stage 3b; G93.9 Disorder of brain, unspecified
CPT/HCPCS: 76770

== ENCOUNTER → 2022-05-04 | Outpatient (CLI) | payer MEDICARE | LOC: CARD 10:47 | PROVIDERS: ATTEND Internal Medicine Cardiovascular Disease | DX: I51.7 Cardiomegaly (principal); I42.0 Dilated cardiomyopathy | CPT/HCPCS: 93225; 93226; 93306 ==

== ENCOUNTER → 2022-09-28 | Outpatient (CLI) | payer MEDICARE ==
[~2022-09-28] MED LIST changes: +CLOP-31 PO; -CLOP75TA69 PO
== END ==
LOC: CARDFS 12:51
PROVIDERS: ATTEND Nurse Practitioner Family
DX: I35.8 Other nonrheumatic aortic valve disorders (principal); I42.0 Dilated cardiomyopathy; I51.7 Cardiomegaly
CPT/HCPCS: 93306

== ENCOUNTER → 2022-10-18 | Outpatient (CLI) | payer MEDICARE ==
--- NOTE | 2022-10-18 10:05 | Diagnostic Imaging Report ---
INDICATION: Pain. FINDINGS: The three view right shoulder shows glenohumeral and acromioclavicular arthritis with no opaque loose body, fracture, or dislocation. No suspicious soft tissue calcifications. IMPRESSION: Chronic degenerative changes; otherwise, unremarkable. Dictated by: Dictated on workstation # [id number]
== END ==
LOC: RAD FS 09:30
PROVIDERS: ATTEND Nurse Practitioner
DX: M19.011 Primary osteoarthritis, right shoulder (principal)
CPT/HCPCS: 73030

== ENCOUNTER → 2023-02-01 | Outpatient (CLI) | payer MEDICARE | LOC: CARD 09:31 | PROVIDERS: ATTEND Internal Medicine Cardiovascular Disease | DX: R06.09 Other forms of dyspnea (principal) | CPT/HCPCS: 93306 ==

== ENCOUNTER → 2023-02-13 | Outpatient (CLI) | payer MEDICARE ==
[~2023-02-13] MED LIST changes: +CATHETER FLUSH 10 ML SYR IVP PRN; +REGADENOSON 0.4 MG/5 ML SYR (LEXISCAN) IV ONE
[2023-02-13 13:29] VITALS: BP 154/98
--- NOTE | 2023-02-15 10:58 | STRESS TEST ---
DATE OF SERVICE: 02/13/2023 RESTING AND POST REGADENOSON TECHNETIUM-99M TETROFOSMIN SPECT CT IMAGING ORDERING PHYSICIAN: Anh Queen APRN. CLINICAL DIAGNOSIS: Shortness of breath. Baseline images were carried out after injection of 10.89 mCi of technetium-99m tetrofosmin. This was followed by 0.4 mg regadenoson and 30.1 mCi of technetium-99m tetrofosmin for stress imaging. The electrocardiogram showed sinus bradycardia at baseline. It did not change significantly with regadenoson infusion. The patient tolerated the procedure well. Review of images at rest and following stress indicates a somewhat diminished count uptake in the inferior wall. This appears to be due to diaphragmatic attenuation and it is seen both at rest and following regadenoson infusion. Gated images do not indicate any distinct regional wall motion abnormality. There is mild global hypokinesis. Left ventricular ejection fraction is calculated to be 44%. Left ventricular end-diastolic volume is 149 mL. CONCLUSIONS: 1. No evidence of significant myocardial ischemia or infarction on this study. 2. Mild global hypokinesis of the left ventricle. 3. Moderate cardiomegaly. 4. Left ventricular ejection fraction 44%. Job ID: [id number] DocumentID: [id number] Dictated Date: 02/15/2023 08:24:10 Shade Bander Date: 02/15/2023 10:05:00 Dictated By: YULIYA CAMACHO MD; DEJUAN; FACP; FACC; SANAZ
== END ==
LOC: CARD 11:24
PROVIDERS: ATTEND Nurse Practitioner Family
DX: R06.09 Other forms of dyspnea (principal)
CPT/HCPCS: 78452; 93017; A9502

== ENCOUNTER 2023-05-25 05:47 | Emergency (ER) | payer MEDICARE ==
[~2023-05-25] VITALS: Ht 187.9 cm; Wt 112.5 kg
[~2023-05-25 05:47] MED LIST changes: -CATHETER FLUSH 10 ML SYR IVP PRN; -REGADENOSON 0.4 MG/5 ML SYR (LEXISCAN) IV ONE
[2023-05-25 05:50] VITALS: BP 182/99
[2023-05-25] MEDS ORDERED: NITROGLYCERIN 0.4 MG SL TABS BTL 25'S SL ONE (06:30)
[2023-05-25] MEDS ORDERED: ASPIRIN 81 MG CHEWABLE TABLET PO ONE (06:30)
[2023-05-25] MEDS ORDERED: DAPA10TA PO (06:36)
[2023-05-25] MEDS ORDERED: MIRT7.5T8 PO (06:36)
[2023-05-25] MEDS ORDERED: AMIO200T65 PO (06:36)
[2023-05-25] MEDS ORDERED: AMLO2.5T4 PO (06:36)
[2023-05-25] MEDS ORDERED: CLON0.5T4 PO (06:36)
--- NOTE | 2023-05-25 06:37 | ED Chest Pain ---
General Chief Complaint: Chest Pain Stated Complaint: CHEST PAIN,HIGH BP,SOB Nursing Triage Note: Patient arrival per POV ambulating to ED 1 reporting chest pain since 05/24. Pt reports concern he does not know what to expect from starting chemo on 05/21 for lung cancer at [facility]. Pt reports when he lays down his chest get very tight. Pain "3"/10 presently and not at its worse. Pt quit smoking 8 yrs ago. Source: patient, family (), RN notes reviewed Exam Limitations: no limitations (ASHLYN MOSLEY MD) History of Present Illness Date Seen by Provider: May 25, 2023 Time Seen by Provider: 06:07 Initial Comments 67-year-old male patient with history of hypertension, hyperlipidemia, prediabetes, atrial fibrillation, peripheral vascular disease, coronary artery disease, hypothyroidism, newly diagnosed lung cancer on chemotherapy presented POV with his with complaining of chest pain. Patient complaining of intermittent episodes of chest pain since yesterday afternoon as a tightness in bilateral of his chest with radiation to his back that happens with supine position and rated his pain 3-5/10. Patient complaining of mild shortness of breath and denies palpitation, dizziness, nausea, diaphoresis, fever and chills, increasing cough. Patient took Tylenol for headache with no change in his pain. Patient stated he had first set of chemo 4 days ago for 3 days and discharged from [facility] yesterday. Patient denies history of previous episode of chest pain but had history of atrial fibrillation and currently taking Eliquis and Plavix. Patient was diagnosed with hypertension 1 week ago and was started on amlodipine 2.5 mg daily beside Plavix, amiodarone and metoprolol. Patient de nies nasal congestion or sore throat, fever and chills, diarrhea and constipation, urinary symptoms, sick contact, recent immobilization. Patient has family history of coronary artery disease and had remote history of 8 years history of smoking. (ASHLYN MOSLEY MD) Allergies and Home Medications Allergies Coded Allergies: No Known Drug Allergies (Unverified , 11/06/17) Patient Home Medication List Home Medication List Reviewed: Yes (ASHLYN MOSLEY MD) Acetaminophen (Tylenol Extra Strength) 500 Mg Tablet, 1,000 MG PO Q8H PRN for PAIN-MILD (1-4), (Reported) Entered as Reported by: EDEN OWUSU on 08/26/21 1023 Last Action: Reviewed Amiodarone HCl (Amiodarone HCl) 200 Mg Tablet, 200 MG PO DAILY, (Reported) Entered as Reported by: MARCELLE TIM on 05/25/23635 Last Action: New Order Amlodipine Besylate (Amlodipine Besylate) 2.5 Mg Tablet, 2.5 MG PO DAILY, (Reported) Entered as Reported by: MARCELLE TIM on 05/25/23635 Last Action: New Order Apixaban (Eliquis) 5 Mg Tablet, 5 MG PO BID, (Reported) Entered as Reported by: DEANA HOLLIS on 11/06/17 07 Last Action: Reviewed Atorvastatin Calcium (Atorvastatin Calcium) 20 Mg Tablet, 20 MG PO HS, (Reported) Entered as Reported by: EDEN OWUSU on 08/26/21 102 Last Action: Reviewed Clonazepam (Clonazepam) 0.5 Mg Tablet, 0.5 MG PO HS, (Reported) Entered as Reported by: MARCELLE TIM on 05/25/23635 Last Action: New Order Clopidogrel Bisulfate (Clopidogrel) 75 Mg Tablet, 75 MG PO DAILY, (Reported) Entered as Reported by: EDEN OWUSU on 08/26/21 102 Last Action: Reviewed Dapagliflozin Propanediol (Farxiga) 10 Mg Tablet, 10 MG PO DAILY, (Reported) Entered as Reported by: MARCELLE TIM on 05/25/23635 Last Action: New Order Levothyroxine Sodium (Synthroid) 125 Mcg Tablet, 125 MCG PO DAILY@0630 Prescribed by: MOISÉS BARROW on 08/31/21 1111 Last Action: Reviewed Metoprolol Succinate (Metoprolol Succinate) 50 Mg Tab.er.24h, 50 MG PO DAILY Prescribed by: LAYLA HENNING on 08/31/21 1021 Last Action: Last Taken Edited Mirtazapine (Mirtazapine) 7.5 Mg Tablet, 7.5 MG PO DAILY, (Reported) Entered as Reported by: MARCELLE TIM on 05/25/23635 Last Action: New Order Ondansetron HCl (Ondansetron HCl) 8 Mg Tablet, (Reported) Entered as Reported by: MARCELLE TIM on 05/25/23641 Last Action: New Order Prochlorperazine Maleate (Prochlorperazine Maleate) 10 Mg Tablet, (Reported) Entered as Reported by: MARCELLE TIM on 05/25/23641 Last Action: New Order Discontinued Medications Amiodarone HCl (Amiodarone HCl) 400 Mg Tablet, 400 MG PO BID Discontinued Reason: Referral/FU Appt-Addtl Prescribed by: LAYLA HENNING on 08/31/21 1021 Last Action: Discontinued Diltiazem HCl (Diltiazem 24Hr ER) 240 Mg Cap.er.24h, 240 MG PO DAILY Discontinued Reason: Referral/FU Appt-Addtl Prescribed by: LAYLA HENNING on 08/31/21 102 Last Action: Discontinued Furosemide (Furosemide) 40 Mg Tablet, 40 MG PO DAILY@ Discontinued Reason: Referral/FU Appt-Addtl Prescribed by: LAYLA HENNING on 08/31/21 102 Last Action: Discontinued Review of Systems Review of Systems Constitutional: no symptoms reported EENTM: No Symptoms Reported Respiratory: See HPI Cardiovascular: See HPI Gastrointestinal: No Symptoms Reported Genitourinary: No Symptoms Reported Musculoskeletal: no symptoms reported Skin: no symptoms reported Psychiatric/Neurological: No Symptoms Reported Endocrine: No Symptoms Reported Hematologic/Lymphatic: No Symptoms Reported (ASHLYN MOSLEY MD) All Other Systems Reviewed Negative Unless Noted: Yes (ASHLYN MOSLEY MD) Past Cjjvuso-Hdkqle-Bxcrha Hx Patient Social History Tobacco Use?: No Smoking Status: Former Smoker Substance use?: No Alcohol Use?: No Pt feels they are or have been: No (ASHLYN MOSLEY MD) Immunizations Up To Date First/Initial COVID19 Vaccinat: JANUARY 09 Second COVID19 Vaccination Zachary: JANUARY 09 Third COVID19 Vaccination Date: Date ? COVID19 Vaccine Cytogenetic Technician: Michelle (ASHLYN MOSLEY MD) Past Medical History Surgery/Hospitalization HX: STENTS X2 RIGHT LEG, LUNG CA, HTN, A FIB, Cardiac: Yes Atrial Fibrillation, Coronary Artery Disease, High Cholesterol, Hypertension, Peripheral Vascular Hypothyroidsim (ASHLYN MOSLEY MD) Family Medical History Heart Disease (ASHLYN MOSLEY MD) Physical Exam Vital Signs Vital Signs - First Documented 05/25/23 05:50 Temp 36.9 Pulse 58 Resp 20 B/P (MAP) 182/99 (126) Pulse Ox 96 O2 Delivery Room Air (ANNITA BARFIELD DO) Vital Signs Capillary Refill : Less Than 3 Seconds (ASHLYN MOSLEY MD) Height, Weight, BMI Height: 6'3.00" Weight: 232lbs. 0.0oz. 105.363818jw; 31.00 BMI Method: General Appearance: WD/WN, Mild Distress HEENT: PERRL/EOMI, Normal ENT Inspection, Pharynx Normal Neck: Full Range of Motion, Normal Inspection, Non Tender Respiratory: Chest Non Tender, Lungs Clear, Normal Breath Sounds, No Accessory Muscle Use Cardiovascular: Regular Rate, Rhythm, No Edema, No Gallop, No JVD Gastrointestinal: Normal Bowel Sounds, No Organomegaly, No Pulsatile Mass Extremity: Normal Capillary Refill, Normal Inspection, Normal Range of Motion, Non Tender Neurologic/Psychiatric: Alert, Oriented x3, No Motor/Sensory Deficits, Normal Mood/Affect Skin: Normal Color, Warm/Dry Lymphatic: No Adenopathy (ASHLYN MOSLYE MD) Progress/Results/Core Measures Results/Orders Lab Results Laboratory Tests Test 05/25/23 06:25 Range/Units White Blood Count 7.5 4.3-11.0 10^3/uL Red Blood Count 4.98 4.30-5.52 10^6/uL Hemoglobin 13.7 13.3-17.7 g/dL Hematocrit 43 40-54 % Mean Corpuscular Volume 85 80-99 fL Mean Corpuscular Hemoglobin 28 25-34 pg Mean Corpuscular Hemoglobin Concent 32 32-36 g/dL Red Cell Distribution Width 14.9 H 10.0-14.5 % Platelet Count 140 130-400 10^3/uL Mean Platelet Volume 10.6 9.0-12.2 fL Immature Granulocyte % (Auto) 0 % Neutrophils (%) (Auto) 82 H 42-75 % Lymphocytes (%) (Auto) 14 12-44 % Monocytes (%) (Auto) 2 0-12 % Eosinophils (%) (Auto) 2 0-10 % Basophils (%) (Auto) 0 0-10 % Neutrophils # (Auto) 6.2 1.8-7.8 10^3/uL Lymphocytes # (Auto) 1.0 1.0-4.0 10^3/uL Monocytes # (Auto) 0.1 0.0-1.0 10^3/uL Eosinophils # (Auto) 0.2 0.0-0.3 10^3/uL Basophils # (Auto) 0.0 0.0-0.1 10^3/uL Immature Granulocyte # (Auto) 0.0 0.0-0.1 10^3/uL Prothrombin Time 13.6 12.2-14.7 SEC INR Comment 1.0 0.8-1.4 Activated Partial Thromboplast Time 25 24-35 SEC D-Dimer 2.50 H 0.00-0.49 UG/ML Sodium Level 145 135-145 MMOL/L Potassium Level 4.4 3.6-5.0 MMOL/L Chloride Level 104 98-107 MMOL/L Carbon Dioxide Level 32 21-32 MMOL/L Anion Gap 9 5-14 MMOL/L Blood Urea Nitrogen 27 H 7-18 MG/DL Creatinine 1.17 0.60-1.30 MG/DL Estimat Glomerular Filtration Rate 68 BUN/Creatinine Ratio 23 Glucose Level 113 H 70-105 MG/DL Calcium Level 8.8 8.5-10.1 MG/DL Corrected Calcium 9.2 8.5-10.1 MG/DL Magnesium Level 2.3 1.6-2.4 MG/DL Total Bilirubin 0.5 0.1-1.0 MG/DL Aspartate Amino Transf (AST/SGOT) 31 5-34 U/L Alanine Aminotransferase (ALT/SGPT) 81 H 0-55 U/L Alkaline Phosphatase 115 40-136 U/L Troponin I < 0.30 <0.30 NG/ML Total Protein 6.5 6.4-8.2 GM/DL Albumin 3.5 3.2-4.5 GM/DL (BARFIELD,ANNITA L DO) My Orders Orders - BARFIELD,ANNITA L DO Ct Angio Chest W (R/O Pe) (05/25/23 07:45) Ct Angio Chest W (05/25/23 08:48) Iohexol Injection (Omnipaque 350 Mg/Ml 1 (05/25/23 09:00) Received Contrast (Hold Metformin- Contr (05/25/23 09:00) Ns (Ivpb) 100 Ml (Sodium Chloride 0.9% 1 (05/25/23 09:00) (ANNITA BARFIELD DO) Medications Given in ED Current Medications Medications Dose Ordered Sig/Kacey Route Start Time Stop Time Status Last Admin Dose Admin Aspirin 324 mg ONCE ONCE PO 05/25/23 06:30 05/25/23 06:31 DC 05/25/23 06:48 324 MG Iohexol 100 ml ONCE ONCE IV 05/25/23 09:00 05/25/23 09:02 DC 05/25/23 09:18 85 ML Nitroglycerin 0.4 mg ONCE ONCE SL 05/25/23 06:30 05/25/23 06:31 DC 05/25/23 06:48 0.4 MG Sodium Chloride 100 ml ONCE ONCE IV 05/25/23 09:00 05/25/23 09:02 DC 05/25/23 09:18 100 ML Sodium Chloride 500 ml @ 0 mls/hr Q0M ONCE IV 05/25/23 07:00 05/25/23 07:01 DC 05/25/23 07:01 999 MLS/HR (ANNITA BARFIELD DO) Vital Signs/I&O 05/25/23 05:50 Temp 36.9 Pulse 58 Resp 20 B/P (MAP) 182/99 (126) Pulse Ox 96 O2 Delivery Room Air (ANNITA BARFIELD DO) Blood Pressure Mean: 126 Progress Progress Note : Progress Note Patient complaining of intermittent episodes of bilateral chest tightness since yesterday afternoon and 3 days of chemotherapy for newly diagnosed lung cancer who was discharged from hospital yesterday. Patient complaining of mild shortness of breath associated with pain that getting worse with supine position. Patient taking Lasix but did not have leg edema. Patient had blood pressure of 182/99 at arrival to ER and stated he did not take his blood pressure medication today. EKG interpreted by me and showed sinus bradycardia without signs of acute ST and T wave elevation. Chest x-ray was ordered and reviewed by me and showed mild pulmonary congestion. Labs including CBC, CMP, D-dimer, BNP, troponin, coagulation panel was ordered by me and results is pending. Aspirin and nitro was ordered. After 1 nitro blood pressure from 192/99 dropped to 90s over 50s and patient became diaphoretic and dizzy and then blood pressure dropped to 83/54 and 500 mL of normal saline was ordered. Patient care transferred to Dr Barfield incoming ER physician at 0700. (ASHLYN MOSLEY MD) Progress Note : Progress Note Patient's care was assumed at shift change. Patient's labs have been ordered and returned and were reviewed. Patient had a slight elevation of the D-dimer so a CTA was obtained. CTA shows no acute pulmonary embolisms. Patient's discomfort has been resolved since shortly after arrival. Patient is doing significantly better. He was requesting to be discharged home as he is feeling a lot better. Discussed with him supportive care along with follow-up with his primary care provider. He should return to the ER with any concerns. I did review CTA results with him and he was aware of the lung cancer and metastatic disease. Patient's symptoms likely as a result of his chemotherapy. He was stable upon discharge (ANNITA BARFIELD DO) Initial ECG Impression Date: May 25, 2023 Initial ECG Impression Time: 05:55 Initial ECG Rate: 59 Initial ECG Rhythm: S.Asa Comment EKG interpreted by me and showed sinus bradycardia at rate of 59. WI interval of 143, QT interval of 422 and QTc interval of 421, QRS duration of 96, left axis deviation, moderate voltage criteria for LVH, no acute ST and T wave elevation. (ASHLYN MOSLEY MD) Diagnostic Imaging Diagonstic Imaging: Xray Plain Films/CT/US/NM/MRI: chest Comments 1 view chest x-ray interpreted by me and showed mild pulmonary congestion (ASHLYN MOSLEY MD) Comments Date of Exam:05/25/23 CHEST 1 VIEW AP/PA ONLY INDICATION: Chest pain TECHNIQUE: Single view chest 6:24 AM CORRELATION STUDY: 08/25/2021 FINDINGS: Heart size enlarged but stable. Vasculature unchanged. The lungs are clear with no consolidating infiltrate. There is no significant effusion or pneumothorax. IMPRESSION: 1. Cardiac enlargement without failure. Reviewed: Reviewed/Discussed Diagonstic Imaging: CT Plain Films/CT/US/NM/MRI: chest Comments Date of Exam:05/25/23 CT ANGIO CHEST W PROCEDURE: CT angiography of the chest with contrast. TECHNIQUE: Multiple contiguous axial images were obtained through the chest after uneventful bolus administration of intravenous contrast. 3D reconstructed CTA MIP acquisitions were also performed. Auto Exposure Controls were utilized during the CT exam to meet ALARA standards for radiation dose reduction. INDICATION: Chest tightness and pain in patient with known lung cancer. COMPARISON: None available There is good opacification pulmonary arteries without intraluminal filling defect. Thoracic aorta is also widely patent without evidence of aneurysm or vascular malformation. There is coronary artery calcification with mild aortic atherosclerotic calcification noted. There is a normal three-vessel branching pattern arising from the aortic arch. There is a lobulated parenchymal mass in the lower lobe of the right lung along the inferior margin of the hilum. This measures approximately 3.5 x 2.5 cm. In addition, there is pathologically enlarged subcarinal adenopathy with lymph node reaching approximately 5.3 x 2.6 cm. Right paratracheal lymph node adjacent to the azygos arch measures 2.4 x 1.6 cm. There are smaller superior mediastinal lymph nodes to the right of midline. In addition, there is a nodule in the left hilum measuring approximately 1.9 x 1.2 cm. There is mild background centrilobular emphysema. No significant pleural or pericardial fluid is identified. IMPRESSION: No CTA evidence of pulmonary embolism or other acute great vessel abnormality in the thorax. Lobulated 3.5 x 2.5 cm right lower lobe pulmonary mass is consistent with patient's known lung cancer with extensive pathologic mediastinal, right paratracheal and subcarinal adenopathy as well as presumed metastatic lymph node in the left pulmonary hilum. Clinical correlation and comparison to previous study would be useful if indicated. (ANNITA BARFIELD DO) Transfer of Care Time: 07:00 Care transferred to: Dr. Barfield (ASHLYN MOSLEY MD) Departure Impression Primary Impression: Acute chest pain Additional Impression: Uncontrolled hypertension Disposition: 01 HOME, SELF-CARE Condition: Unchanged Departure-Patient Inst. Referrals: ALLY KHAN MD (PCP/Family) Primary Care Physician Patient Instructions: Chemotherapy, High Blood Pressure ED Add. Discharge Instructions: return to Er with worsening symptoms are any other concerns All discharge instructions reviewed with patient and/or family. Voiced understanding. ASHLYN MOSLEY MD May 25, 2023 06:37 ANNITA BARFIELD DO May 25, 2023 07:08
[2023-05-25] MEDS ORDERED: PROC10TA10 (06:42)
[2023-05-25] MEDS ORDERED: ONDA-106 (06:42)
--- NOTE | 2023-05-25 06:55 | Diagnostic Imaging Report ---
INDICATION: Chest pain TECHNIQUE: Single view chest 6:24 AM CORRELATION STUDY: 08/25/2021 FINDINGS: Heart size enlarged but stable. Vasculature unchanged. The lungs are clear with no consolidating infiltrate. There is no significant effusion or pneumothorax. IMPRESSION: 1. Cardiac enlargement without failure. Dictated by: Dictated on workstation # [id number]
[2023-05-25] MEDS ORDERED: NS IV 500 ML 500 ML ONE (06:57)
[2023-05-25] MEDS ORDERED: NS IV 500 ML 500 ML IV ONE (07:00)
[2023-05-25 07:04] LABS: BASOPHILS % (AUTO) 0 % (0-10); EOSINOPHILS # (AUTO) 0.2 10^3/uL (0.0-0.3); EOSINOPHILS % (AUTO) 2 % (0-10); HEMATOCRIT 43 % (40-54); HEMOGLOBIN 13.7 g/dL (13.3-17.7); LYMPHOCYTES % (AUTO) 14 % (12-44); MEAN CORPUSCULAR HEMOGLOBIN 28 pg (25-34); MEAN CORPUSCULAR HGB CONC 32 g/dL (32-36); MEAN CORPUSCULAR VOLUME 85 fL (80-99); MEAN PLATELET VOLUME 10.6 fL (9.0-12.2); MONOCYTES # (AUTO) 0.1 10^3/uL (0.0-1.0); MONOCYTES % (AUTO) 2 % (0-12); NEUTROPHILS # (AUTO) 6.2 10^3/uL (1.8-7.8); NEUTROPHILS % (AUTO) 82 % (42-75); PLATELET COUNT 140 10^3/uL (130-400); WHITE BLOOD COUNT 7.5 10^3/uL (4.3-11.0)
[2023-05-25 07:27] LABS: ALANINE AMINOTRANSFERASE 81 U/L (0-55); ALBUMIN 3.5 GM/DL (3.2-4.5); ALKALINE PHOSPHATASE 115 U/L (40-136); BILIRUBIN,TOTAL 0.5 MG/DL (0.1-1.0); BUN/CREATININE RATIO 23; CALCIUM 8.8 MG/DL (8.5-10.1); CARBON DIOXIDE 32 MMOL/L (21-32); CHLORIDE 104 MMOL/L (98-107); CREATININE SERUM 1.17 MG/DL (0.60-1.30); GFR ESTIMATED 68; GLUCOSE 113 MG/DL (70-105); MAGNESIUM 2.3 MG/DL (1.6-2.4); POTASSIUM 4.4 MMOL/L (3.6-5.0); PROTHROMBIN TIME PATIENT 13.6 SEC (12.2-14.7); SODIUM 145 MMOL/L (135-145); TOTAL PROTEIN 6.5 GM/DL (6.4-8.2)
[2023-05-25 07:43] LABS: FIBRIN DEGRADATION PRODUCTS 2.5 UG/ML (0.00-0.49)
[2023-05-25] MEDS ORDERED: IOHEXOL 350 MG/ML 100 ML (OMNIPAQUE 350) VIAL IV ONE (09:00)
[2023-05-25] MEDS ORDERED: NS 100 ML (IVPB) BAG IV ONE (09:00)
[2023-05-25] MEDS ORDERED: HOLD METFORMIN - RECEIVED CONTRAST 20 ML VIAL IV SCH (09:00)
--- NOTE | 2023-05-25 09:31 | Diagnostic Imaging Report ---
PROCEDURE: CT angiography of the chest with contrast. TECHNIQUE: Multiple contiguous axial images were obtained through the chest after uneventful bolus administration of intravenous contrast. 3D reconstructed CTA MIP acquisitions were also performed. Auto Exposure Controls were utilized during the CT exam to meet ALARA standards for radiation dose reduction. INDICATION: Chest tightness and pain in patient with known lung cancer. COMPARISON: None available There is good opacification pulmonary arteries without intraluminal filling defect. Thoracic aorta is also widely patent without evidence of aneurysm or vascular malformation. There is coronary artery calcification with mild aortic atherosclerotic calcification noted. There is a normal three-vessel branching pattern arising from the aortic arch. There is a lobulated parenchymal mass in the lower lobe of the right lung along the inferior margin of the hilum. This measures approximately 3.5 x 2.5 cm. In addition, there is pathologically enlarged subcarinal adenopathy with lymph node reaching approximately 5.3 x 2.6 cm. Right paratracheal lymph node adjacent to the azygos arch measures 2.4 x 1.6 cm. There are smaller superior mediastinal lymph nodes to the right of midline. In addition, there is a nodule in the left hilum measuring approximately 1.9 x 1.2 cm. There is mild background centrilobular emphysema. No significant pleural or pericardial fluid is identified. IMPRESSION: No CTA evidence of pulmonary embolism or other acute great vessel abnormality in the thorax. Lobulated 3.5 x 2.5 cm right lower lobe pulmonary mass is consistent with patient's known lung cancer with extensive pathologic mediastinal, right paratracheal and subcarinal adenopathy as well as presumed metastatic lymph node in the left pulmonary hilum. Clinical correlation and comparison to previous study would be useful if indicated. Dictated by: Dictated on workstation # [id number]
== END 2023-05-25 09:43 | disposition home or self-care (01) ==
LOC: EDUNIT# 05:47 → ER FS 05:49
DX: R07.89 Other chest pain (principal); I10 Essential (primary) hypertension; C34.90 Malignant neoplasm of unspecified part of unspecified bronchus or lung; I48.91 Unspecified atrial fibrillation; Z79.01 Long term (current) use of anticoagulants; Z79.02 Long term (current) use of antithrombotics/antiplatelets; Z87.891 Personal history of nicotine dependence
CPT/HCPCS: 36415; 71045; 71275; 80053; 83735; 84484; 85025; 85379; 85610; 85730; 93005; Q9967